=== PATIENT | female | born 1965 | race Caucasian/White ===

== ENCOUNTER 2020-06-06 07:24 | Outpatient (REF) | payer OTHER, SELFPAY ==
--- NOTE | ~2020-06-06 | MM_ITS ---
EXAMINATION: MM SCREENING DIGITAL BREAST TOMOSYNTHESIS, BILATERAL CLINICAL INFORMATION: Screening. Asymptomatic. The lifetime risk of breast cancer based on the Tyrer-Cuzick Model is 8%. COMPARISON: Mammography: 02/11/2019, 11/25/2017, 07/09/2016 TECHNIQUE: Digital breast tomosynthesis is performed in both the craniocaudal and mediolateral oblique views along with computer-aided detection (CAD). Synthesized 2D images are generated from the tomosynthesis. Additional bilateral CC views are provided. FINDINGS: There are scattered areas of fibroglandular density (ACR BI-RADS breast composition Category b). Breast tissue composition borders on predominantly fatty. Background stromal markings and fibroglandular densities are stable. There is no developing density or interval mass or architectural abnormality. No abnormal calcifications. The axilla and skin contours are unremarkable. MM/MM tomosynthesis screening BI IMPRESSION: No mammographic evidence of malignancy. ASSESSMENT: BI-RADS 1: Negative RECOMMENDATION: Routine annual mammography screening. This patient's information was entered into a reminder system with a target due date for their next mammogram.
== END 2020-06-06 07:25 | disposition home or self-care (01) ==
LOC: HO.MAMMO 07:24
PROVIDERS: Visit Provider Obstetrics & Gynecology
DX: Z12.31 Encounter for screening mammogram for malignant neoplasm of breast (principal)
CPT/HCPCS: 77063; 77067

== ENCOUNTER 2020-06-07 06:17 | Emergency (ER) | payer OTHER, SELFPAY ==
[2020-06-07] VITALS (11 sets, daily range): BP systolic 103–157; BP diastolic 61–124; PULSE 67–180; RESP 11–22; O2SAT 98–99; BMI 37.8
--- NOTE | 2020-06-07 | ECG_ITS ---
Test Reason : TACHY Blood Pressure : / mmHG Vent. Rate : 070 BPM Atrial Rate : 070 BPM P-R Int : 142 ms QRS Dur : 088 ms QT Int : 378 ms P-R-T Axes : 065 055 051 degrees QTc Int : 408 ms Normal sinus rhythm Possible Left atrial enlargement Borderline ECG When compared with ECG of 07-JUN-2020 06:32, Sinus rhythm has replaced Atrial fibrillation Vent. rate has decreased BY 103 BPM Non-specific change in ST segment in Inferior leads ST no longer depressed in Anterolateral leads T wave inversion no longer evident in Inferior leads T wave inversion no longer evident in Lateral leads Referred By: Kimberly Dawn Electronically Signed By:Dano Paez
--- NOTE | ~2020-06-07 | XR_ITS ---
EXAMINATION: XR CHEST CLINICAL INFORMATION: SVT. COMPARISON: None TECHNIQUE: Frontal view of the chest was obtained. FINDINGS: The lungs are well-expanded and clear. The heart size and pulmonary vascularity is normal. No gross bony abnormality seen. XR/XR chest 1V IMPRESSION: Unremarkable chest exam.
--- NOTE | ~2020-06-07 | CT_ITS ---
EXAMINATION: CT CHEST PE STUDY CLINICAL INFORMATION: Elevated d-dimer. Set atrial fibrillation. COMPARISON: Chest x-ray dated 06/07/2020. CT scan of the abdomen and pelvis dated 11/19/2010. TECHNIQUE: Prior to contrast administration, localization images were obtained. After the administration of 65 and mL of intravenous Omnipaque 350, multidetector CT volume acquisition of the chest was performed. 3-D postprocessing was performed with multiplanar reconstructions and MIP images obtained at the acquisition workstation under concurrent physician supervision. This CT examination was performed using dose optimization techniques as appropriate, variously including the following: *Automated exposure control *Adjustment of mA and/or kV according to patient size (this includes techniques or standardized protocols for targeted exams where dose is matched to indication/reason for exam; i.e. extremities or head) *Use of iterative reconstruction technique DLP: 386 mGy-cm. FINDINGS: Pulmonary arteries: The bolus timing on this study was acceptable for visualization of the pulmonary arterial tree. There are no intraluminal pulmonary arterial filling defects present to suggest pulmonary embolism in the main pulmonary artery, right and left main pulmonary artery, lobar and segmental branches. Lungs: Minimal dependent atelectasis in the lung bases bilaterally. No pulmonary nodules, masses, pleural effusion or pneumothorax. The central airways are patent. Aorta and heart: The heart is normal in size. The aorta is normal. There is no pericardial effusion no evidence of elevated right heart pressures. Lymphatic structures: There is no lymphadenopathy. Upper abdomen: Limited evaluation of the upper abdominal viscera demonstrates a 3.3 x 3.8 cm incompletely imaged fluid attenuation mass in the upper pole of the left kidney, consistent with a cyst, likely slightly larger compared to 11/19/2010. Included solid organs otherwise unremarkable. Bones: Diffuse mild vertebral spondylosis throughout the thoracic spine. Moderate degenerative disc disease at T11-12. CT/CT angio chest PE protocol IMPRESSION: No evidence of pulmonary embolism. Incompletely visualized cystic mass in the upper pole of left kidney. Visualized portions of the cyst appear unremarkable. VTE: Negative
--- NOTE | 2020-06-07 06:31 | ECG_ITS ---
Test Reason : TACHY Blood Pressure : / mmHG Vent. Rate : 176 BPM Atrial Rate : 163 BPM P-R Int : 000 ms QRS Dur : 080 ms QT Int : 282 ms P-R-T Axes : 000 060 -76 degrees QTc Int : 482 ms Atrial fibrillation with rapid ventricular response ST & T wave abnormality, consider inferior ischemia Abnormal ECG When compared with ECG of 15-MAR-2008 09:05, Atrial fibrillation has replaced Sinus rhythm Vent. rate has increased BY 115 BPM Non-specific change in ST segment in Inferior leads ST now depressed in Anterolateral leads T wave inversion now evident in Inferior leads T wave inversion now evident in Anterolateral leads Referred By: Kimberly Dawn Electronically Signed By:Dano Paez
[2020-06-07] MEDS: 0.9 % Sodium Chloride 1,000 ML 999 ML IVCONT (06:36)
--- NOTE | 2020-06-07 06:36 | PC.NURSE ---
Adenosine 6mg given at 06:32am Adenosine 12mg given at 06:36am Cardizem 10mg given at 06:42am 20g IV access in right AC 18g IV access in left AC Pt is cooperative/calm, reports racing heart started at 5am as recorded by apple watch. Reports family hx of stroke, and afib and other heart problems . Normal saline 1liter infusing wide open. & at bedside.
[2020-06-07 06:39] LABS: MANUAL DIFF FLAG NO
[2020-06-07] MEDS: dilTIAZem HCL 50 MG/10 ML VIAL 20 MG IVPUSH (06:42)
--- NOTE | 2020-06-07 06:44 | ED.ARRPALP ---
HPI - Arrhythmia/Palpitations General Chief Complaint: Arrhythmia/Palpitations Stated Complaint: Fast HR Time Seen by Provider: 06/07/20 06:22 Source: patient Mode of arrival: ambulatory Limitations: no limitations History of Present Illness HPI narrative: Patient comes to emergency room complaining of rapid heart rate. Patient states this morning when she woke up, she noticed that she had had rapid heart rate. Patient states she has had this episodes in the past before but had never lasted this long, usually they self-resolved. Patient denies chest pain, no shortness of breath. Patient states she does feel tired, feels like she has just finished running a race. Patient denies any recent illnesses. MD complaint: heart racing Related Data Home Medications Medication Instructions Recorded Confirmed cetirizine 10 mg tablet 10 mg PO DAILY 12/12/19 06/01/20 cholecalciferol (vitamin D3) 25 25 mcg PO DAILY 12/12/19 06/01/20 mcg (1,000 unit) capsule fluticasone propionate 50 1 spray INTRANASAL DAILY 12/12/19 06/01/20 mcg/actuation nasal spray,suspension ibuprofen 600 mg tablet 600 mg PO TID PRN 12/12/19 06/01/20 omega-3 fatty acids 1,000 mg 1,000 mg PO DAILY 12/12/19 06/01/20 capsule Previous Rx's Medication Instructions Recorded trazodone 100 mg tablet 100 mg PO BEDTIME PRN 90 Days #90 04/01/20 tab atenolol 25 mg tablet 25 mg PO DAILY 90 Days #90 tab 04/21/20 hydrochlorothiazide 50 mg tablet 50 mg PO DAILY 90 Days #90 tab 04/21/20 amoxicillin 875 mg-potassium 1 tab PO BID #20 tab 06/01/20 clavulanate 125 mg tablet prednisone 20 mg tablet 20 mg PO .COMPLEX #18 tab 06/01/20 Allergies Allergy/AdvReac Type Severity Reaction Status Date / Time Sulfa (Sulfonamide Allergy Severe HIVES,DIFFICULTY Verified 06/01/20 13:51 Antibiotics) BREATHING, [SULFA (SULFONAMIDE rash ANTIBIOTICS)] sulfamethoxazole Allergy Unknown unknown Verified 06/01/20 13:51 [From Bactrim] trimethoprim [From Bactrim] Allergy Unknown unknown Verified 06/01/20 13:51 Review of Systems Review of Systems: Constitutional : No Weight loss, No Fever, No Chills, No Night Sweats, No Fatigue, No Malaise ENT/Mouth : No Hearing loss, No Ear Pain, No Nasal Congestion, No Sinus Pain, No Hoarseness, No sore throat, No Rhinorrhea, No Swallowing Difficulty Eyes: No Eye Pain, No Swelling, No Redness, No Foreign Body, No Discharge, No Vision Changes Cardiovascular : No Chest Pain, No SOB, No Dyspnea on Exertion, No Orthopnea, No Edema, complaining of palpitations, rapid heart rate Respiratory : No Cough, No Sputum, No Wheezing, No Smoke Exposure, No Dyspnea Gastrointestinal : No Nausea, No Vomiting, No Diarrhea, No Constipation, No abdominal Pain, No Hematochezia, No Melena Genitourinary : no irregular bleeding, No Dysuria, No Urinary Frequency, No Hematuria, No Urinary Incontinence, No Urgency, No Flank Pain, No Urinary Flow Changes, No Hesitancy Musculoskeletal : No joint pain, No Myalgias, No Joint Swelling Skin : No Skin Lesions, No rash Neuro : No Weakness, No Numbness, No Paresthesias, No Loss of Consciousness, No Dizziness, No Headache Psych : No Anxiety/Panic, No Depression, No SI/HI/AH/VH, No Social Issues, Heme/Lymph: No Bruising, No Bleeding,No Lymphadenopathy Endocrine : No Polyuria, No Polydipsia, No Temperature Intolerance PMFSH Past Medical History Medical History Allergies Hypovitaminosis D Immunization due Immunization history incomplete Leg edema Obesity Palpitations Surgical History History of appendectomy History of eye surgery History of hysterectomy History of laparoscopic cholecystectomy History of tonsillectomy Family History Family History Father COPD (chronic obstructive pulmonary disease) CVD (cardiovascular disease) Pulmonary fibrosis Mother Stroke Rectal cancer Hypertension Afib Son No problems noted. Social History Social History Smoking Status: Former smoker Tobacco Type: Cigarette Years Smoked: 13 Physical Exam Vital Signs: Vital Signs: Last Vital Signs Pulse 180 H 06/07/20 06:22 Resp 20 06/07/20 06:22 BP 157/124 H 06/07/20 06:22 Pulse Ox 98 04/18/21 06:22 Body Mass Index 37.8 Appearance: Alert. Oriented X3. No acute distress, slightly anxious Eyes: Pupils equal, round and reactive to light. ENT: Pharynx normal. Neck: Normal inspection. Neck supple. No lymph nodes noted. No crepitus CVS: Irregularly regular, heart rate between 160 and 200 Respiratory: No respiratory distress. Breath sounds normal. No Wheezing. No rales Abdomen: Soft and nontender. No rigidity. No distention. good BS x4 Skin: Skin warm and dry. Normal skin color. Normal skin turgor. Extremities: No lower extremity edema. No Lacerations. No Rash Neuro: Oriented X 3. No motor deficit. No sensory deficit. Moving all extermities. No slurred speech. Course Course Course Narrative: Patient received 1 dose of 6 mg of adenosine with no result, then patient received a 2nd dose of 12 mg of adenosine with no good result. Patient's blood pressure 103 systolic, patient was given 10 mg of Cardizem. Patient's heart rate decreased to 120 for a few minutes then increase to 160 again. After the 6 and 12 mg of adenosine pushed, as the patient's heart rate dropped for a few seconds, the underlying rhythm seem to be atrial fibrillation. Patient is on Cardizem drip. For a few minutes, patient was in sinus rhythm, heart rate 70, no underlying ischemia. However, patient went immediately back up to 160. All of patient's labs are pending. Sign-out given to Dr. Ennis who is currently at bedside with the patient as well. MDM - Arrhythmia/Palpitations Lab Data Result diagrams: 06/07/20 06:34 06/07/20 06:34 Labs: Lab Results 06/07/20 06/07/20 Range/Units 06:34 06:34 WBC 12.6 H (4.8-10.8) X10*3/uL RBC 4.47 (4.20-5.50) X10*6/uL Hgb 13.8 (12.0-16.0) g/dl Hct 40.2 (37-47) % MCV 89.9 (80-98) fL MCH 30.9 (27.0-33.0) pg MCHC 34.3 (31.0-35.0) g/dl RDW 12.7 (11.0-16.0) % Plt Count 274 (160-400) X10*3/uL MPV 8.6 L (9.4-12.3) fL Immature Gran % (Auto) 0.6 H (0.0-0.4) % Neut % (Auto) 50.6 (45-73) % Lymph % (Auto) 38.8 (20-40) % [place] % (Auto) 7.5 (2-11) % Eos % (Auto) 2.0 (0-4) % Baso % (Auto) 0.5 (0-2) % Lymph # (Auto) 4.9 (1.2-4.9) X10*3/uL [place] # (Auto) 0.9 (0.1-1.2) X10*3/uL Eos # (Auto) 0.3 (0.0-0.4) X10*3/uL Baso # (Auto) 0.1 (0.0-0.2) X10*3/uL Abs Immat Gran (auto) 0.08 H (0.00-0.03) X10*3/uL Absolute Neuts (auto) 6.4 (2.0-8.3) X10*3/uL Absolute Nucleated RBC 0.000 (0.0-0.012) X10*3/uL Nucleated RBC % (auto) 0.0 (0.0-0.2) /100WBC Hold Blue Top SEE NOTE ECG Data Attestation: I personally reviewed and interpreted this ECG as follows: (EKG 1: Heart rate 176, rhythm on the term and atrial fibrillation with RVR versus SVT. EKG 2: Heart rate 173, likely atrial fibrillation. EKG 3: Sinus rhythm, heart rate 70, QTC 408, no ST segment depression or elevation) Discharge Plan Discharge Prescriptions: No Action trazodone 100 mg tablet 100 mg PO BEDTIME PRN (Reason: sleep) 90 Days Qty: 90 RF: 0 atenolol 25 mg tablet 25 mg PO DAILY 90 Days Qty: 90 RF: 3 hydrochlorothiazide 50 mg tablet 50 mg PO DAILY 90 Days Qty: 90 RF: 3 ibuprofen 600 mg tablet 600 mg PO TID PRNRF: 0 cetirizine [Zyrtec] 10 mg tablet 10 mg PO DAILY RF: 0 fluticasone propionate [Flonase Allergy Relief] 50 mcg/actuation spray,suspension 1 spray intranasal DAILY RF: 0 cholecalciferol (vitamin D3) 25 mcg (1,000 unit) capsule 25 mcg PO DAILY RF: 0 omega-3 fatty acids [Fish Oil Concentrate] 1,000 mg capsule 1,000 mg PO DAILY RF: 0 prednisone 20 mg tablet 20 mg PO .COMPLEX Qty: 18 RF: 0 amoxicillin-pot clavulanate [Augmentin] 875-125 mg tablet 1 tab PO BID Qty: 20 RF: 0
[2020-06-07 06:48] LABS: Basophils Absolute Auto 0.1 X10*3/uL (0.0-0.2); Basophils Percent Auto 0.5 % (0-2); Eosinophils Absolute Auto 0.3 X10*3/uL (0.0-0.4); Hematocrit 40.2 % (37-47); Hemoglobin 13.8 g/dl (12.0-16.0); Imm Gran Abs Auto 0.08 X10*3/uL (0.00-0.03); Imm Gran Pct Auto 0.6 % (0.0-0.4); Lymphocytes Absolute Auto 4.9 X10*3/uL (1.2-4.9); Lymphocytes Percent Auto 38.8 % (20-40); Mean Corpuscular HGB Conc 34.3 g/dl (31.0-35.0); Mean Corpuscular Hemoglobin 30.9 pg (27.0-33.0); Mean Corpuscular Volume 89.9 fL (80-98); Mean Platelet Volume 8.6 fL (9.4-12.3); Monocytes Absolute Auto 0.9 X10*3/uL (0.1-1.2); Monocytes Percent Auto 7.5 % (2-11); Neutrophils Absolute Auto 6.4 X10*3/uL (2.0-8.3); Neutrophils Percent Auto 50.6 % (45-73); Platelet Count 274 X10*3/uL (160-400); Red Blood Count 4.47 X10*6/uL (4.20-5.50); Red Cell Distribution Width 12.7 % (11.0-16.0); White Blood Count 12.6 X10*3/uL (4.8-10.8)
[2020-06-07] MEDS: dilTIAZem HCL 125 MG in 0.9 % Sodium Chloride 100 ML IVCONT (06:57)
[2020-06-07 06:59] LABS: INTERNATIONAL NORM RATIO 0.9 (0.9-1.1); Prothrombin Time 10.2 SEC (10.8-13.0)
[2020-06-07 07:21] LABS: Alanine Aminotransferase 23 U/L (0-31); Albumin Level 4.1 g/dL (3.5-5.0); Alkaline Phosphatase 78 U/L (39-117); Anion Gap 15 (12-20); Aspartate Amino Transferase 20 U/L (5-31); Bilirubin Direct < 0.2 mg/dL (0.0-0.5); Bilirubin Total 0.2 mg/dL (0.0-1.0); Blood Urea Nitrogen 16 mg/dL (9-16); Carbon Dioxide 27 mmol/L (22-29); Chloride 104 mmol/L (96-108); Creatinine Clr Calc Pharmacy 104.6; Estimated Glomerular Filt Rate > 60; Glucose Random 96 mg/dL (60-115); Potassium 3.3 mmol/L (3.3-5.1); Sodium 143 mmol/L (135-145); Total Protein 6.9 g/dL (6.5-8.0); Troponin-I High Sensitivity 92.7 ng/L (<3.5-17.0)
[2020-06-07 07:27] LABS: D Dimer 670 NG/ML
[2020-06-07 07:32] LABS: Thyroid Stimulating Hormone 0.89 uIU/mL (0.32-4.0)
[2020-06-07] MEDS: Aspirin 81 MG TAB.CHEW 162 MG PO (07:48)
--- NOTE | 2020-06-07 07:54 | PC.NURSE ---
report taken from christin khan pt here for rapid heart beat noticed by apple watch when awaking this am, has significant family hx of svt. has bl iv access, on diltiazem drip titrated up to 15mg/hr. pt is intermittently in and out of svt and nsr with rates as low as 75-85 and as high as 150-160 bpm. pt sts she can feel when hr becomes elevated. denies any cp or sob at this time, on o2 via nc for support, 98% spo2 on 2l. alert and oriented, pleasant affect. awaiting cta and cardiology consult.
--- NOTE | 2020-06-07 08:05 | PC.NURSE ---
pt appears to have broken svt, sustaining nsr with rate 60-70 bpm. sts feeling much better at this time, provider aware.
--- NOTE | 2020-06-07 09:21 | PC.NURSE ---
PER DR LARA, DILTIAZEM TO BE TITRATED DOWN TO OFF IF PT CONTINUES TO MAINTAIN NORMAL SINUS RHYTHM. DRIP TITRATED OFF. PT ABLE TO AMBULATE W STANDBY ASSIST TO RESTROOM, TAKEN TO CTA VIA STRETCHER. REPEAT TROP TO BE DRAWN WELL COVID SWAB.
[2020-06-07] MEDS: iohexoL 350 MG/ML 100 ML INFUS..BTL IV (09:26)
[2020-06-07 10:02] LABS: COVID-19 Test Negative (Negative); IDNOW Serial# 9DD0AD1C
--- NOTE | 2020-06-07 11:24 | P.CONCA_ITS ---
History of Present Illness History of Present Illness Date of Service: 06/07/20 Requesting physician: Marylou Ennis Consult reason: atrial fibrillation Chief complaint: Fast HR Narrative: Pleasant 55-year-old female here for palpitations. She was in a republican yesterday and drank some alcohol. This morning she woke up with palpitation. She said she has been experiencing palpitations for long time. She had an Apple watch on and she noticed her heart rate to be 170s to 180s. With these symptoms she came to the ER was found with AFib with RVR. She was started on Cardizem drip and reverted back to sinus rhythm. Her troponin was abnormal we were asked to assess her. She has no chest discomfort shortness of breath. Denies any symptoms with palpitations or otherwise. Currently asymptomatic. She has no other risk factors. She has been on atenolol for long time because she had palpitations and was started on atenolol for palpitations and not hypertension. Review of Systems Review of Systems: No symptoms Yes all other systems are reviewed and are negative FOR[facility]LY [facility] Past Medical History Medical History Allergies Hypovitaminosis D Immunization due Immunization history incomplete Leg edema Obesity Palpitations Family History Family History Father COPD (chronic obstructive pulmonary disease) CVD (cardiovascular disease) Pulmonary fibrosis Mother Stroke Rectal cancer Hypertension Afib Son No problems noted. Surgical History Surgical History History of appendectomy History of eye surgery History of hysterectomy History of laparoscopic cholecystectomy History of tonsillectomy Social History Social History Alcohol intake: current Alcohol intake frequency: a few times a week Smoking Status: Former smoker Tobacco Type: Cigarette Years Smoked: 13 Use of substances other than those prescribed or required for medical reasons: No Advance Directives: Yes Advance Directives Information Provided: No Advance Directives on File: No Meds Allergies Allergy/AdvReac Type Severity Reaction Status Date / Time Sulfa (Sulfonamide Allergy Severe HIVES,DIFFICULTY Verified 06/01/20 13:51 Antibiotics) BREATHING, [SULFA (SULFONAMIDE rash ANTIBIOTICS)] sulfamethoxazole Allergy Unknown unknown Verified 06/01/20 13:51 [From Bactrim] trimethoprim [From Bactrim] Allergy Unknown unknown Verified 06/01/20 13:51 Active Medications: Current Medications Generic Name Dose Route Start Last Admin Trade Name Eliana PRN Reason Stop Dose Admin Diltiazem HCl 125 mg/ Sodium 125 mls @ 0 mls/hr 06/07/20 06:45 06/07/20 08:31 Chloride IVCONT 0 mg/hr .Q0M BOLA 0 mls/hr Titration Protocol Per Protocol Home Medications Medication Instructions Recorded Confirmed Last Taken Type cetirizine 10 mg tablet 10 mg PO DAILY 12/12/19 06/01/20 Unknown History cholecalciferol (vitamin D3) 25 25 mcg PO DAILY 12/12/19 06/01/20 Unknown History mcg (1,000 unit) capsule fluticasone propionate 50 1 spray INTRANASAL DAILY 12/12/19 06/01/20 Unknown History mcg/actuation nasal spray,suspension omega-3 fatty acids 1,000 mg 1,000 mg PO DAILY 12/12/19 06/01/20 Unknown History capsule Physical Exam Vital Signs: Vital Signs: Last Vital Signs Pulse 68 06/07/20 10:15 Resp 18 06/07/20 10:15 BP 111/61 06/07/20 10:15 Pulse Ox 98 06/07/20 10:15 Body Mass Index 37.8 GENERAL APPEARANCE: in no acute distress, well developed, well nourished. HEENT: unremarkable. HEAD: normocephalic, atraumatic. NECK/THYROID: no carotid bruit, no jugular venous distention. SKIN: no suspicious lesions, warm and dry. HEART: no murmurs, regular rate and rhythm, S1, S2 normal. LUNGS: clear to auscultation bilaterally. ABDOMEN: normal, bowel sounds present, soft, nontender, nondistended. EXTREMITIES: no clubbing, cyanosis, or edema. PERIPHERAL PULSES: equal. NEUROLOGIC: nonfocal, alert and oriented. PSYCH: mood/affect full range. Results Labs and Meds Result diagrams: 06/07/20 06:34 06/07/20 06:34 Lab results: Laboratory Results - last 24 hr 06/07/20 06/07/20 06/07/20 06:34 06:34 06:34 WBC 12.6 H RBC 4.47 Hgb 13.8 Hct 40.2 MCV 89.9 MCH 30.9 MCHC 34.3 RDW 12.7 Plt Count 274 MPV 8.6 L Immature Gran % (Auto) 0.6 H Neut % (Auto) 50.6 Lymph % (Auto) 38.8 [place] % (Auto) 7.5 Eos % (Auto) 2.0 Baso % (Auto) 0.5 Lymph # (Auto) 4.9 [place] # (Auto) 0.9 Eos # (Auto) 0.3 Baso # (Auto) 0.1 Abs Immat Gran (auto) 0.08 H Absolute Neuts (auto) 6.4 Absolute Nucleated RBC 0.000 Nucleated RBC % (auto) 0.0 PT 10.2 L INR 0.9 D-Dimer 670 Hold Blue Top SEE NOTE Sodium 143 Potassium 3.3 Chloride 104 Carbon Dioxide 27 Anion Gap 15 BUN 16 Creatinine 0.81 Estim Creat Clear Calc 104.6 Estimated GFR > 60 Random Glucose 96 Calcium 9.0 Total Bilirubin 0.2 Direct Bilirubin < 0.2 AST 20 ALT 23 Alkaline Phosphatase 78 Troponin I High Sens Total Protein 6.9 Albumin 4.1 TSH 0.89 COVID-19 ([facility]) COVID-Slipstream 06/07/20 06/07/20 06/07/20 06:34 09:40 09:40 WBC RBC Hgb Hct MCV MCH MCHC RDW Plt Count MPV Immature Gran % (Auto) Neut % (Auto) Lymph % (Auto) [place] % (Auto) Eos % (Auto) Baso % (Auto) Lymph # (Auto) [place] # (Auto) Eos # (Auto) Baso # (Auto) Abs Immat Gran (auto) Absolute Neuts (auto) Absolute Nucleated RBC Nucleated RBC % (auto) PT INR D-Dimer Hold Blue Top Sodium Potassium Chloride Carbon Dioxide Anion Gap BUN Creatinine Estim Creat Clear Calc Estimated GFR Random Glucose Calcium Total Bilirubin Direct Bilirubin AST ALT Alkaline Phosphatase Troponin I High Sens 92.7 H 247.0 H D Total Protein Albumin TSH COVID-19 ([facility]) Negative COVID-19 Clin Com See Note Imaging Radiologist's impression: Impressions Chest X-Ray 06/07/20 06:31 IMPRESSION: Unremarkable chest exam. Chest CTA 06/07/20 07:44 IMPRESSION: No evidence of pulmonary embolism. Incompletely visualized cystic mass in the upper pole of left kidney. Visualized portions of the cyst appear unremarkable. VTE: Negative Assessment and Plan (1) Atrial fibrillation: Qualifiers: Atrial fibrillation type: unspecified Qualified Code(s): I48.91 - Unspecified atrial fibrillation Status: Acute Pleasant 55-year-old female who is presenting with AFib with RVR in the setting of alcohol use last night. She has no other risk factors currently. Her chads Vasc is 1 because of being a woman. No anticoagulation required. Continue the atenolol. Alcohol cessation. Troponin elevation is due to type 2 MIs setting of rapid ventricular response from atrial fibrillation. Thank you for allowing me to participate in the care of your patient. Please fe el free to contact me if you have any questions.
== END 2020-06-07 11:28 | disposition home or self-care (01) ==
PROVIDERS: Emergency Medicine; Emergency Provider Emergency Medicine; PCP Internal Medicine
DX: I48.91 Unspecified atrial fibrillation (principal); R00.0 Tachycardia, unspecified; Z20.822 Contact with and (suspected) exposure to COVID-19; F17.210 Nicotine dependence, cigarettes, uncomplicated
CPT/HCPCS: 36415; 71045; 71275; 80048; 80076; 84443; 84484; 85025; 85379; 85610; 87635; 93005; 96361; 96365; 96366; 96375; 99285; J0153; Q9967

== ENCOUNTER 2020-08-27 12:07 | Outpatient (REF) | payer OTHER, SELFPAY ==
[2020-08-27 07:10] LABS: Alanine Aminotransferase 22 U/L (0-31); Alkaline Phosphatase 66 U/L (39-117); Anion Gap 13 (12-20); Aspartate Amino Transferase 23 U/L (5-31); Bilirubin Total 0.4 mg/dL (0.0-1.0); Blood Urea Nitrogen 21 mg/dL (9-16); Calcium 9.4 mg/dL (8.4-10.2); Carbon Dioxide 26 mmol/L (22-29); Chloride 106 mmol/L (96-108); Cholesterol 164 mg/dL; Estimated Glomerular Filt Rate > 60; Glucose Fasting 106 mg/dL (60-99); HDL Cholesterol 61 mg/dL; LDL Cholesterol Calculated 90 mg/dl; Sodium 141 mmol/L (135-145); Total Protein 6.6 g/dL (6.5-8.0); Triglycerides 68 mg/dL
[2020-08-28 08:19] LABS: ~Hepatitis B Surface Antibody NONREACTIVE (Nonreactive)
[2020-08-28 09:11] LABS: Rubella IgG Antibody 1.17 Index; Rubeola IgG (Measles) >300.00 AU/mL
[2020-08-31 13:37] LABS: Vitamin D 25-OH, D2 <4 ng/mL; Vitamin D 25-OH, D3 46 ng/mL; Vitamin D 25-OH, Total 46 ng/mL (30-100)
== END 2020-08-27 12:08 | disposition home or self-care (01) ==
LOC: HO.LAB 12:07
PROVIDERS: PCP Internal Medicine; Visit Provider Internal Medicine
DX: Z01.84 Encounter for antibody response examination (principal); E66.9 Obesity, unspecified; E55.9 Vitamin D deficiency, unspecified
CPT/HCPCS: 36415; 80053; 80061; 82306; 86706; 86735; 86762; 86765; 86787

== ENCOUNTER 2021-05-15 11:34 | Outpatient (REF) | payer OTHER, SELFPAY ==
[2021-05-15 11:57] LABS: Binax Internal Control QC Valid; Binax Now Covid-19 Ag Negative (Negative); Binax Performed by: HO.BONILM
== END 2021-05-15 11:35 | disposition home or self-care (01) ==
LOC: HO.HMGCLDS 11:34
PROVIDERS: PCP Physician Assistant; Visit Provider Physician Assistant Medical
DX: Z13.89 Encounter for screening for other disorder (principal)

== ENCOUNTER 2021-05-22 06:32 | Outpatient (REF) | payer OTHER, SELFPAY ==
[2021-05-22 11:18] LABS: Hematocrit 38.4 % (37.0-47.0); Hemoglobin 13.2 g/dl (12.0-16.0); Mean Corpuscular HGB Conc 34.4 g/dl (31.0-35.0); Mean Corpuscular Hemoglobin 31.4 pg (27.0-33.0); Mean Corpuscular Volume 91.4 fL (80.0-98.0); Mean Platelet Volume 9.3 fL (9.4-12.3); Platelet Count 204 X10*3/uL (160-400); Red Cell Distribution Width 12.4 % (11.0-16.0); White Blood Count 4.9 X10*3/uL (4.8-10.8)
[2021-05-22 11:39] LABS: Alanine Aminotransferase 27 U/L (0-31); Albumin Level 4.1 g/dL (3.5-5.0); Alkaline Phosphatase 56 U/L (39-117); Anion Gap 12 (12-20); Aspartate Amino Transferase 30 U/L (5-31); Bilirubin Total 0.7 mg/dL (0.0-1.0); Blood Urea Nitrogen 16 mg/dL (9-16); Calcium 9.7 mg/dL (8.4-10.2); Carbon Dioxide 28 mmol/L (22-29); Chloride 105 mmol/L (96-108); Cholesterol 148 mg/dL; Estimated Glomerular Filt Rate > 60; Glucose Fasting 97 mg/dL (60-99); HDL Cholesterol 55 mg/dL; LDL Cholesterol Calculated 78 mg/dl; Potassium 3.9 mmol/L (3.3-5.1); Sodium 141 mmol/L (135-145); Total Protein 6.8 g/dL (6.5-8.0); Triglycerides 77 mg/dL
[2021-05-22 11:48] LABS: Creatinine Urine 102.89 mg/dL; Microalbumin Urine < 5.0 mg/L
[2021-05-22 12:02] LABS: TSH reflex Free T4 1.33 uIU/mL (0.32-4.0)
== END 2021-05-22 06:33 | disposition home or self-care (01) ==
LOC: HO.HMGCLDS 06:32
PROVIDERS: Visit Provider Physician Assistant
DX: I10 Essential (primary) hypertension (principal)
CPT/HCPCS: 36415; 80053; 80061; 82043; 84443; 85027

== ENCOUNTER 2021-06-19 09:07 | Outpatient (REF) | payer OTHER, SELFPAY ==
--- NOTE | ~2021-06-19 | MM_ITS ---
EXAMINATION: MM SCREENING DIGITAL BREAST TOMOSYNTHESIS, BILATERAL CLINICAL INFORMATION: Screening. Asymptomatic. The lifetime risk of breast cancer based on the Tyrer-Cuzick Model is 10%. COMPARISON: Mammography: 06/06/2020, 02/11/2019, 11/25/2017 TECHNIQUE: Digital breast tomosynthesis is performed in both the craniocaudal and mediolateral oblique views along with computer-aided detection (CAD). Synthesized 2D images are generated from the tomosynthesis. FINDINGS: There are scattered areas of fibroglandular density (ACR BI-RADS breast composition Category b). There are no significant masses, abnormal calcifications, or other abnormalities. Breast tissue composition borders on predominantly fatty. Background stromal markings are stable. The axilla are unremarkable. No significant changes. MM/MM tomosynthesis screening BI IMPRESSION: No mammographic evidence of malignancy. ASSESSMENT: BI-RADS 1: Negative RECOMMENDATION: Routine annual mammography screening. This patient's information was entered into a reminder system with a target due date for their next mammogram.
== END 2021-06-19 09:08 | disposition home or self-care (01) ==
LOC: HO.MAMMO 09:07
PROVIDERS: Visit Provider Internal Medicine
DX: Z12.31 Encounter for screening mammogram for malignant neoplasm of breast (principal)
CPT/HCPCS: 77063; 77067

== ENCOUNTER 2022-06-25 09:56 | Outpatient (REF) | payer OTHER, SELFPAY ==
--- NOTE | ~2022-06-25 | MM_ITS ---
EXAMINATION: MM SCREENING DIGITAL BREAST TOMOSYNTHESIS, BILATERAL CLINICAL INFORMATION: Screening. Asymptomatic. The lifetime risk of breast cancer based on the Tyrer-Cuzick Model is 7%. COMPARISON: Mammography: 06/19/2021, 06/06/2020, 02/11/2019 TECHNIQUE: Digital breast tomosynthesis is performed in both the craniocaudal and mediolateral oblique views along with computer-aided detection (CAD). Synthesized 2D images are generated from the tomosynthesis. FINDINGS: There are scattered areas of fibroglandular density (ACR BI-RADS breast composition Category b). Breast tissue composition borders on predominantly fatty. Background stromal markings are normal. No developing density or architectural abnormality. There are no significant masses, abnormal calcifications, or other abnormalities. The axilla and skin contours are unremarkable. MM/MM tomosynthesis screening BI IMPRESSION: No mammographic evidence of malignancy. ASSESSMENT: BI-RADS 1: Negative RECOMMENDATION: Routine annual mammography screening. This patient's information was entered into a reminder system with a target due date for their next mammogram.
== END 2022-06-25 09:57 | disposition home or self-care (01) ==
LOC: HO.MAMMO 09:56
PROVIDERS: PCP Physician Assistant; Visit Provider Obstetrics & Gynecology
DX: Z12.31 Encounter for screening mammogram for malignant neoplasm of breast (principal)
CPT/HCPCS: 77063; 77067

== ENCOUNTER 2022-07-16 07:00 | Outpatient (REF) | payer OTHER, SELFPAY ==
[2022-07-16 07:32] LABS: Hematocrit 40.6 % (37.0-47.0); Hemoglobin 14.3 g/dl (12.0-16.0); Mean Corpuscular HGB Conc 35.2 g/dl (31.0-35.0); Mean Corpuscular Hemoglobin 31.7 pg (27.0-33.0); Mean Platelet Volume 8.5 fL (9.4-12.3); Platelet Count 235 X10*3/uL (160-400); Red Blood Count 4.51 X10*6/uL (4.20-5.50); Red Cell Distribution Width 11.9 % (11.0-16.0); White Blood Count 6.2 X10*3/uL (4.8-10.8)
[2022-07-16 07:55] LABS: Alanine Aminotransferase 21 U/L (0-31); Albumin Level 4.4 g/dL (3.5-5.0); Alkaline Phosphatase 65 U/L (39-117); Anion Gap 11 (12-20); Aspartate Amino Transferase 25 U/L (5-31); Bilirubin Total 1.1 mg/dL (0.0-1.0); Blood Urea Nitrogen 17 mg/dL (9-16); Carbon Dioxide 30 mmol/L (22-29); Chloride 103 mmol/L (96-108); Cholesterol 179 mg/dL; Estimated Glomerular Filt Rate 58; Glucose Fasting 107 mg/dL (60-99); HDL Cholesterol 70 mg/dL; LDL Cholesterol Calculated 96 mg/dl; Potassium 3.8 mmol/L (3.3-5.1); Sodium 140 mmol/L (135-145); Total Protein 7.5 g/dL (6.5-8.0); Triglycerides 65 mg/dL
[2022-07-16 09:36] LABS: Microalbum/Creatinine Ratio Ur 151.2 ug/mg cr
== END 2022-07-16 07:01 | disposition home or self-care (01) ==
LOC: HO.LAB 07:00
PROVIDERS: PCP Physician Assistant; Visit Provider Physician Assistant
DX: I10 Essential (primary) hypertension (principal)
CPT/HCPCS: 36415; 80053; 80061; 82043; 85027

== ENCOUNTER → 2022-07-19 08:52 | Outpatient (BNVA) | payer OTHER, SELFPAY | PROVIDERS: PCP Physician Assistant; Visit Provider Dietitian, Registered | DX: E66.09 Other obesity due to excess calories (principal); Z68.33 Body mass index [BMI] 33.0-33.9, adult | CPT/HCPCS: 97802 ==

== ENCOUNTER 2022-08-05 15:57 | Outpatient (REF) | payer OTHER, SELFPAY ==
[2022-08-05 17:36] LABS: Creatinine Urine 24.66 mg/dL; Microalbumin Urine < 5.0 mg/L
== END 2022-08-05 15:58 | disposition home or self-care (01) ==
LOC: HO.LAB 15:57
PROVIDERS: PCP Physician Assistant; Visit Provider Physician Assistant
DX: R80.9 Proteinuria, unspecified (principal)
CPT/HCPCS: 82043

== ENCOUNTER 2023-05-27 06:58 | Outpatient (REF) | payer OTHER, SELFPAY ==
[2023-05-27 07:53] LABS: Hematocrit 37.4 % (37.0-47.0); Hemoglobin 13.2 g/dl (12.0-16.0); Mean Corpuscular HGB Conc 35.3 g/dl (31.0-35.0); Mean Corpuscular Hemoglobin 32.2 pg (27.0-33.0); Mean Corpuscular Volume 91.2 fL (80.0-98.0); Mean Platelet Volume 9.1 fL (9.4-12.3); Platelet Count 208 X10*3/uL (160-400); Red Cell Distribution Width 12.3 % (11.0-16.0); White Blood Count 5.4 X10*3/uL (4.8-10.8)
[2023-05-27 08:44] LABS: Alanine Aminotransferase 17 U/L (0-31); Alkaline Phosphatase 54 U/L (39-117); Anion Gap 11 (12-20); Aspartate Amino Transferase 21 U/L (5-31); Bilirubin Total 0.5 mg/dL (0.0-1.0); Blood Urea Nitrogen 25 mg/dL (9-16); Calcium 9.6 mg/dL (8.4-10.2); Carbon Dioxide 28 mmol/L (22-29); Chloride 105 mmol/L (96-108); Estimated Glomerular Filt Rate > 60; Glucose Fasting 102 mg/dL (60-99); Potassium 3.6 mmol/L (3.3-5.1); Sodium 140 mmol/L (135-145); Total Protein 6.9 g/dL (6.5-8.0)
[2023-05-27 14:32] LABS: Creatinine Urine 136.52 mg/dL; Microalbum/Creatinine Ratio Ur 30.7 ug/mg cr (<30)
== END 2023-05-27 06:59 | disposition home or self-care (01) ==
LOC: HO.LAB 06:58
PROVIDERS: PCP Physician Assistant; Visit Provider Physician Assistant
DX: I10 Essential (primary) hypertension (principal)
CPT/HCPCS: 36415; 80053; 82043; 82570; 85027

== ENCOUNTER 2023-05-31 15:55 | Outpatient (AMB) | payer OTHER, SELFPAY ==
[2023-05-31 15:56] VITALS: BP 136/72; PULSE 52; O2SAT 98; BMI 33.8
--- NOTE | 2023-05-31 15:56 | MHC.PC.OV ---
Vital Signs 05/31/23 15:56 Height 5 ft 8 in Weight 222 lb 8 oz BMI 33.8 BP 136/72 Blood Pressure Location Lt brachial Position Sitting Pulse 52 Pulse Source Pulse Oximeter Pulse Oximetry (%) 98 Oxygen Delivery Method Room Air Intake Visit Reasons: weight loss medication Spooler Rubber Strand Required: No Accompanied by: Self / Same As Patient Allergies Sulfa (Sulfonamide Antibiotics) [SULFA (SULFONAMIDE ANTIBIOTICS)] Allergy (Severe, Verified 05/31/23 16:13) HIVES,DIFFICULTY BREATHING, rash sulfamethoxazole [From Bactrim] Allergy (Unknown, Verified 05/31/23 16:13) unknown trimethoprim [From Bactrim] Allergy (Unknown, Verified 05/31/23 16:13) unknown Medication List - Last Reconciled 05/31/23 by Antonio Ponce PA-C atenolol 12.5 mg (1/2 x 25 mg) PO DAILY 90 days cetirizine (Zyrtec) 10 mg PO DAILY cholecalciferol (vitamin D3) 25 mcg PO DAILY flecainide 50 mg PO BID 90 days fluticasone propionate 50 mcg/actuation (Flonase Allergy Relief) 1 spray intranasal DAILY hydrochlorothiazide 50 mg PO DAILY 90 days loratadine-pseudoephedrine 10-240 mg ER (Claritin-D 24 Hour) 1 tab PO DAILY PRN 90 days omega-3 fatty acids (Fish Oil Concentrate) 1,000 mg PO DAILY trazodone 100 mg PO BEDTIME PRN 90 days Tobacco use date assessed: 05/31/23 Dental Screening Dental Screen Date: 05/31/23 Did you have a dental visit in the last 12 months?: Yes Did you have a dental problem in the last 6 months where you did not have access to dental care?: No Was dental information given to patient?: Patient has dentist HPI weight loss medication HPI Details Patient is a 58-year-old female here today for follow-up visit. ?Patient has a past medical history significant for obesity, palpitations, allergies, Tachycardia: ? Heart rate acceptable today in office pres, blood pressure sure acceptable today in office.? Continues on hydrochlorothiazide and atenolol with good effect.? Of note uses hydrochlorothiazide for lower extremity edema. .. Obesity:? Has been able to lose a significant amount of weight since last office visit.? She is using weight watchers, her weight loss seems to have plateaued and she is discouraged by this. She is interested in starting a medication to help her lose more weight. She set a goal weight to be around 200 lb. She has not interested in injectable GLP therapy due to cost.? [facility] Medical History (Updated 05/31/23 @ 16:19 by Antonio Ponce PA-C) Hypovitaminosis D Immunization due Immunization history incomplete Palpitations Obesity Allergies Surgical History History of eye surgery History of laparoscopic cholecystectomy History of appendectomy History of tonsillectomy History of hysterectomy Family History Father COPD (chronic obstructive pulmonary disease) CVD (cardiovascular disease) Pulmonary fibrosis Mother Stroke Rectal cancer Hypertension Afib Son No problems noted. 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 1. Little interest or pleasure in doing things: not at all 2. Feeling down, depressed, or hopeless: not at all 3. Trouble falling or staying asleep, or sleeping too much: not at all 4. Feeling tired or having little energy: not at all 5. Poor appetite or overeating: not at all 6. Feeling bad about yourself - or that you are a failure or have let yourself or your family down: not at all 7. Trouble concentrating on things, such as reading the newspaper or watching television: not at all 8. Moving or speaking so slowly that other people could have noticed. Or the opposite - being so fidgety or restless that you have been moving around a lot more than usual: not at all 9. Thoughts that you would be better off or of hurting yourself in some way: not at all Total score: 0 Depression Screening Interpretation: Negative Depression Screening Done: Yes 95149 - PHQ-9 Billing: Yes Source: Developed by Drs. Hipolito Boucher, Alesia Saldaña, Jerald Starkey and colleagues, with an educational daniela from [employer]. Thrive Questionnaire Date Thrive assessed: 05/31/23 I am a: Patient What is your living situation today?: I have a steady place to live Within the past 12 months, did the food you bought not last and you didn't have the money to get more?: Never true Within the past 12 months, did you worry whether your food would run out before you got money to buy more?: Never true Do you have trouble paying for medicines?: No Do you have trouble getting transportation to medical appointments?: No Do you have trouble paying your heating and electricity bill?: No Do you have trouble taking care of your child, family member or friend?: No Do you have trouble with day-to-day activities such as bathing, preparing meals, shopping, managing finances, etc.?: No Are you currently unemployed and looking for a job?: No Are you interested in more education?: No Please select the resources that you would like help with: None Currently or been in a relationship where the following occur: no concerns reported THRIVE Score: 0 AUDIT C Alcohol Use Questionnaire (AUDIT-C) 1. How often do you have a drink containing alcohol?: Never 3. How often do you have six or more drinks on one occasion?: Never Total Score: 0 CATERINA-7 AMB Questionnaire CATERINA-7 Date CATERINA - 7 assessed: 05/31/23 Feeling nervous, anxious, or on edge: 0 = Not at all Not being able to stop or control worryin = Not at all Worrying too much about different things: 0 = Not at all Trouble relaxin = Not at all Being so restless that it is hard to sit still: 0 = Not at all Becoming easily annoyed or irritable: 0 = Not at all Feeling afraid as if something awful might happen: 0 = Not at all Total CATERINA-7 score (0-4 normal; 5-9 mild; 10-14 moderate; 15-21 severe): 0 Source: Developed by Drs. Hipolito Boucher, Alesia Saldaña, Jerald Starkey and colleagues, with an educational daniela from [employer]. CATERINA-7 Assessment Billing CATERINA-7 Assessment Tool: CATERINA-7 Assessment 14788 Review of Systems Const Denies headache(s) Eyes Denies loss of vision ENT Denies vertigo, Denies dizziness, Denies headache(s) and Denies sore throat Card Denies chest pain, Denies leg edema and Denies lightheadedness Resp Denies cough, Denies hemoptysis and Denies wheezing GI Denies abdominal pain, Denies melena, Denies constipation, Denies diarrhea and Denies vomiting Denies urinary frequency, Denies dysuria and Denies urinary urgency Musc Denies arthralgias, Denies joint swelling, Denies numbness and Denies tingling Neuro Denies Abnormal speech present, Denies behavioral changes, Denies vertigo, Denies dizziness, Denies headache(s), Denies loss of vision, Denies memory loss, Denies numbness and Denies tingling Psych Denies anxiety, Denies behavioral changes, Denies depression, Denies memory loss and Denies panic attacks Brennen/Lymph Denies easy bleeding and Denies easy bruising Aller/Immun Denies wheezing Physical exam (Primary Care) Vital Signs: Last Vital Signs Pulse 52 05/31/23 15:56 BP 136/72 05/31/23 15:56 Pulse Ox 98 05/31/23 15:56 Oxygen Delivery Method Room Air 05/31/23 15:56 BMI result Body Mass Index 33.8 BMI Assessment/Plan discussion: High Tobacco/Smoking Status: Tobacco use Status Tobacco use date assessed 05/31/23 05/31/23 15:58 Patient Tobacco Use Status Former Tobacco user 05/31/23 15:57 Tobacco use type Cigarette 05/31/23 15:57 e-Cigarette/Vaping Use Never Used 05/31/23 15:57 PHQ-9: PHQ-9 Score PHQ-9: Total score 0 05/31/23 16:16 Depression Screening Interpretation: Negative Thrive Assessment: Date of Thrive Assessment Date Thrive assessed 05/31/23 05/31/23 16:07 Currently or been in a relationship where the following occur: no concerns reported Const Other: Obese General: healthy appearing, no acute distress, alert and awake Nutritional Appearance: well nourished Orientation/consciousness: oriented to person, oriented to place and oriented to time HENMT Ears: TM's normal bilaterally General nose exam: Normal nasal mucous membranes and turbinates present Eyes Conjunctivae: conjunctivae normal Sclerae: sclerae normal Pupils: Equal, round and reactive pupils present Neck Neck: Yes no lymphadenopathy and Yes no JVD Thyroid: Thyroid normal Carotids: no bruits Resp Effort & Inspection: normal respiratory effort and not tachypneic Auscultation: no crackles, no rales, no rhonchi and no wheezes Cardio Rate: regular rate Rhythm: regular rhythm Heart sounds: no murmurs and normal S1 and S2 GI Palpation (GI): Soft to palpation, nontender, no hepatomegaly and no splenomegaly Auscultation: normal bowel sounds Skin General skin exam: no rashes or lesions noted and dry skin Neuro General: oriented to person, oriented to place and oriented to time Cranial nerves: Yes Equal, round and reactive pupils present Speech: No Abnormal speech present Gait exam (Neuro): Normal gait present Motor exam (neuro): no tremor noted Extrem Right upper extremity: full ROM Left upper extremity: full ROM Right lower extremity: full ROM; no edema Left lower extremity: full ROM; no edema Psych Mental Status: mental status grossly normal Speech and movement: Normal speech and movement present Affect: normal affect Attitude: cooperative Thought process: Normal thought process present Assessment and Plan Assessment & Plan (1) Obese: Code(s): E66.9 - Obesity, unspecified Qualifiers: Body mass index: BMI 33.0-33.9 Obesity classification: adult class 1 (BMI 30 - 34.9) Obesity type: due to excess calories Serious obesity comorbidity presence: without serious comorbidity Qualified Code(s): E66.09 - Other obesity due to excess calories; Z68.33 - Body mass index [BMI] 33.0-33.9, adult Plan: Patient does understand her BMI is over 30. Patient continues with weight watchers, she continues to struggle with losing weight. She has modified her diet and is physically active. She is interested in trying medication non injectable to help her lose weight. Will try the Contrave dual naltrexone bupropion. If Contrave not covered by insurance will tries single agent Wellbutrin 100 mg SR. ---> We did discuss the possibility of having palpitations and tachycardia with this medication and patient is aware. (2) Tachycardia: Code(s): R00.0 - Tachycardia, unspecified Plan: Continues beta-jose and flecainide good effect on reducing her heart palpitations and tachycardia. Medications: New naltrexone-bupropion 8-90 mg 1 tab PO QAM 7 tabs 0RF 7 days E66.09 - Other obesity due to excess calories, Z68.33 - Body mass index [BMI] 33.0-33.9, adult Coding Level of Care Code Est Pt Level 4 (23317) Diagnoses Class 1 obesity due to excess calories without serious comorbidity with body mass index (BMI) of 33.0 to 33.9 in adult E66.09; Z68.33 Body mass index: BMI 33.0-33.9 Obesity classification: adult class 1 (BMI 30 - 34.9) Obesity type: due to excess calories Serious obesity comorbidity presence: without serious comorbidity Tachycardia R00.0 Additional Codes CATERINA-7 Assessment Billing - CATERINA-7 Assessment Tool: CATERINA-7 Assessment 28560 ([id number])
== END 2023-05-31 16:34 | disposition home or self-care (01) ==
PROVIDERS: PCP Physician Assistant; Visit Provider Physician Assistant
DX: E66.09 Other obesity due to excess calories (principal); Z68.33 Body mass index [BMI] 33.0-33.9, adult; R00.0 Tachycardia, unspecified
CPT/HCPCS: 99214

== ENCOUNTER 2023-06-28 09:53 | Outpatient (AMB) | payer OTHER, SELFPAY ==
[2023-06-28 09:58] VITALS: BP 132/76; PULSE 65; O2SAT 97; BMI 33.4
--- NOTE | 2023-06-28 09:58 | MHC.PC.OV ---
Vital Signs 06/28/23 09:58 Height 5 ft 8 in Weight 219 lb 6 oz BMI 33.4 BP 132/76 Blood Pressure Location Lt brachial Position Sitting Pulse 65 Pulse Source Pulse Oximeter Pulse Oximetry (%) 97 Oxygen Delivery Method Room Air Intake Visit Reasons: soar throat Leadership Development Consultant Required: No Accompanied by: Self / Same As Patient Allergies Sulfa (Sulfonamide Antibiotics) [SULFA (SULFONAMIDE ANTIBIOTICS)] Allergy (Severe, Verified 06/28/23 10:14) HIVES,DIFFICULTY BREATHING, rash sulfamethoxazole [From Bactrim] Allergy (Unknown, Verified 06/28/23 10:14) unknown trimethoprim [From Bactrim] Allergy (Unknown, Verified 06/28/23 10:14) unknown bupropion [From Wellbutrin] Adverse Reaction (Intermediate, Verified 06/28/23 10:16) arthralgia Medication List - Last Reconciled 06/28/23 by Antonio Ponce PA-C atenolol 12.5 mg (1/2 x 25 mg) PO DAILY 90 days bupropion HCl SR (Wellbutrin SR) 100 mg PO DAILY 30 days cetirizine (Zyrtec) 10 mg PO DAILY cholecalciferol (vitamin D3) 25 mcg PO DAILY flecainide 50 mg PO BID 90 days fluticasone propionate 50 mcg/actuation (Flonase Allergy Relief) 1 spray intranasal DAILY hydrochlorothiazide 50 mg PO DAILY 90 days loratadine-pseudoephedrine 10-240 mg ER (Claritin-D 24 Hour) 1 tab PO DAILY PRN 90 days omega-3 fatty acids (Fish Oil Concentrate) 1,000 mg PO DAILY trazodone 100 mg PO BEDTIME PRN 90 days Tobacco use date assessed: 05/31/23 Dental Screening Dental Screen Date: 05/31/23 HPI soar throat HPI Details Patient is a 58-year-old female here today for problem visit. Reports over the last 4 days having a sore throat and swollen neck glands. She denies any significant issues swallowing. She denies any fevers. [facility] Medical History Hypovitaminosis D Immunization due Immunization history incomplete Palpitations Obesity Allergies Surgical History History of eye surgery History of laparoscopic cholecystectomy History of appendectomy History of tonsillectomy History of hysterectomy Family History Father COPD (chronic obstructive pulmonary disease) CVD (cardiovascular disease) Pulmonary fibrosis Mother Stroke Rectal cancer Hypertension Afib Son No problems noted. 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 Hipolito Boucher, Alesia Saldaña, Jerald Starkey and colleagues, with an educational daniela from [employer]. Review of Systems Const Denies headache(s) Eyes Denies loss of vision ENT Denies vertigo, Denies dizziness, Denies headache(s) and Denies sore throat Card Denies chest pain, Denies leg edema and Denies lightheadedness Resp Denies cough, Denies hemoptysis and Denies wheezing GI Denies abdominal pain, Denies melena, Denies constipation, Denies diarrhea and Denies vomiting Denies urinary frequency, Denies dysuria and Denies urinary urgency Musc Denies arthralgias, Denies joint swelling, Denies numbness and Denies tingling Neuro Denies Abnormal speech present, Denies behavioral changes, Denies vertigo, Denies dizziness, Denies headache(s), Denies loss of vision, Denies memory loss, Denies numbness and Denies tingling Psych Denies anxiety, Denies behavioral changes, Denies depression, Denies memory loss and Denies panic attacks Brennen/Lymph Denies easy bleeding and Denies easy bruising Aller/Immun Denies wheezing Physical exam (Primary Care) Vital Signs: Last Vital Signs Pulse 65 06/28/23 09:58 BP 132/76 06/28/23 09:58 Pulse Ox 97 06/28/23 09:58 Oxygen Delivery Method Room Air 06/28/23 09:58 BMI result Body Mass Index 33.4 Tobacco/Smoking Status: Tobacco use Status Tobacco use date assessed 05/31/23 06/28/23 10:00 Patient Tobacco Use Status Former Tobacco user 06/28/23 10:00 Tobacco use type Cigarette 06/28/23 10:00 e-Cigarette/Vaping Use Never Used 06/28/23 10:00 Thrive Assessment: Date of Thrive Assessment Date Thrive assessed 05/31/23 06/28/23 10:00 Const General: healthy appearing, no acute distress, alert and awake Nutritional Appearance: well nourished Orientation/consciousness: oriented to person, oriented to place and oriented to time HENMT Other: SLIGHT ERYTHEMA OF THE POSTERIOR PHARYNX ON INSPECTION Ears: TM's normal bilaterally General nose exam: Normal nasal mucous membranes and turbinates present Eyes Conjunctivae: conjunctivae normal Sclerae: sclerae normal Pupils: Equal, round and reactive pupils present Neck Neck: Yes no lymphadenopathy and Yes no JVD Thyroid: Thyroid normal Carotids: no bruits Resp Effort & Inspection: normal respiratory effort and not tachypneic Auscultation: no crackles, no rales, no rhonchi and no wheezes Cardio Rate: regular rate Rhythm: regular rhythm Heart sounds: no murmurs and normal S1 and S2 GI Palpation (GI): Soft to palpation, nontender, no hepatomegaly and no splenomegaly Auscultation: normal bowel sounds Skin General skin exam: no rashes or lesions noted and dry skin Neuro General: oriented to person, oriented to place and oriented to time Cranial nerves: Yes Equal, round and reactive pupils present Speech: No Abnormal speech present Gait exam (Neuro): Normal gait present Motor exam (neuro): no tremor noted Extrem Right upper extremity: full ROM Left upper extremity: full ROM Right lower extremity: full ROM; no edema Left lower extremity: full ROM; no edema Psych Mental Status: mental status grossly normal Speech and movement: Normal speech and movement present Affect: normal affect Attitude: cooperative Thought process: Normal thought process present Results AMB Rapid Strep AMB Rapid Strep Negative Last Edit by PHILLY Allen on 06/28/23 10:32 Results Reviewed Results Reviewed: Laboratory Last Values Strep Scn Rapid Clinic Negative 06/28/23 10:03 Assessment and Plan Assessment & Plan (1) Pharyngitis: Code(s): J02.9 - Acute pharyngitis, unspecified Qualifiers: Pharyngitis/tonsillitis etiology: other specified organisms Qualified Code(s): J02.8 - Acute pharyngitis due to other specified organisms Plan: Patient reports a 4 day history sore throat and cervical glands. Likely related to seasonal allergies. Rapid strep today in office negative. Will send for culture. Will prophylactically treat with antibiotic for strep infection due to recent contact with positive strep throat grandchildren. Orders: Orders Throat Culture Today J02.8 - Acute pharyngitis due to other specified organisms AMB Rapid Strep Screen Today J02.9 - Acute pharyngitis, unspecified Medications: New prednisone 20 mg PO DAILY 4 tabs 0RF 4 days J02.8 - Acute pharyngitis due to other specified organisms amoxicillin-pot clavulanate 875-125 mg 1 tab PO BID 14 tabs 0RF 7 days J02.8 - Acute pharyngitis due to other specified organisms Refilled atenolol 12.5 mg (1/2 x 25 mg) PO DAILY 45 tabs 1RF 90 days R00.0 - Tachycardia, unspecified hydrochlorothiazide 50 mg PO DAILY 90 tabs 1RF 90 days I10 - Essential (primary) hypertension trazodone 100 mg PO BEDTIME PRN 90 tabs 2RF sleep 90 days flecainide 50 mg PO BID 180 tabs 1RF 90 days R00.0 - Tachycardia, unspecified Discontinued bupropion HCl SR (Wellbutrin SR) Discontinued Reason: Doctor's Order 100 mg PO DAILY 30 days 30 tabs 1RF E66.09 - Other obesity due to excess calories, Z68.33 - Body mass index [BMI] 33.0-33.9, adult Coding Level of Care Code Est Pt Level 3 (53618) Diagnoses Pharyngitis due to other organism J02.8 Pharyngitis/tonsillitis etiology: other specified organisms
== END 2023-06-28 10:27 | disposition home or self-care (01) ==
PROVIDERS: PCP Physician Assistant; Visit Provider Physician Assistant
DX: J02.9 Acute pharyngitis, unspecified (principal); J02.8 Acute pharyngitis due to other specified organisms
CPT/HCPCS: 87880; 99213

== ENCOUNTER 2023-06-28 19:11 | Outpatient (REF) | payer OTHER, SELFPAY | END 2023-06-28 19:12 | disposition home or self-care (01) | LOC: HO.LNP 19:11 | PROVIDERS: Visit Provider Physician Assistant | DX: J02.9 Acute pharyngitis, unspecified (principal) | CPT/HCPCS: 87070 ==

== ENCOUNTER 2023-07-10 15:43 | Outpatient (REF) | payer OTHER, SELFPAY | END 2023-07-10 15:44 | disposition home or self-care (01) | LOC: HO.MAMMO 15:43 | PROVIDERS: PCP Physician Assistant; Visit Provider Physician Assistant | DX: Z12.31 Encounter for screening mammogram for malignant neoplasm of breast (principal) | CPT/HCPCS: 77063; 77067 ==

== ENCOUNTER → 2023-07-10 15:45 | Outpatient (BNV) | payer OTHER, SELFPAY | PROVIDERS: PCP Physician Assistant; Visit Provider Radiology Diagnostic Radiology | DX: Z12.31 Encounter for screening mammogram for malignant neoplasm of breast (principal) | CPT/HCPCS: 77063; 77067 ==

== ENCOUNTER 2023-12-26 14:45 | Outpatient (REF) | payer BC, SELFPAY ==
[2023-12-26 15:07] LABS: MANUAL DIFF FLAG NO
[2023-12-26 15:47] LABS: Basophils Absolute Auto 0.1 X10*3/uL (0.0-0.2); Basophils Percent Auto 0.8 % (0-2); Eosinophils Absolute Auto 0.3 X10*3/uL (0.0-0.4); Eosinophils Percent Auto 3.8 % (0-4); Hematocrit 36.6 % (37.0-47.0); Hemoglobin 12.8 g/dl (12.0-16.0); Imm Gran Abs Auto 0.01 X10*3/uL (0.00-0.03); Imm Gran Pct Auto 0.1 % (0.0-0.4); Lymphocytes Absolute Auto 3.3 X10*3/uL (1.2-4.9); Lymphocytes Percent Auto 44.8 % (20-40); Mean Corpuscular Hemoglobin 32.2 pg (27.0-33.0); Mean Corpuscular Volume 92.2 fL (80.0-98.0); Mean Platelet Volume 8.6 fL (9.4-12.3); Monocytes Absolute Auto 0.8 X10*3/uL (0.1-1.2); Monocytes Percent Auto 10.7 % (2-11); Neutrophils Absolute Auto 2.9 x10*3/uL (2.0-8.3); Neutrophils Percent Auto 39.8 % (45-73); Platelet Count 222 X10*3/uL (160-400); Red Blood Count 3.97 X10*6/uL (4.20-5.50); Red Cell Distribution Width 12.3 % (11.0-16.0); White Blood Count 7.4 X10*3/uL (4.8-10.8)
[2023-12-26 16:20] LABS: Anion Gap 9 (12-20); Blood Urea Nitrogen 18 mg/dL (9-16); Calcium 9.3 mg/dL (8.4-10.2); Carbon Dioxide 31 mmol/L (22-29); Chloride 99 mmol/L (96-108); Estimated Glomerular Filt Rate > 60; Glucose Random 78 mg/dL (60-115); Potassium 4.2 mmol/L (3.3-5.1); Sodium 135 mmol/L (135-145)
[2024-01-04 21:18] LABS: Prothrombin 20210A NEGATIVE
== END 2023-12-26 14:46 | disposition home or self-care (01) ==
LOC: HO.LAB 14:45
PROVIDERS: PCP Physician Assistant; Visit Provider Internal Medicine Cardiovascular Disease
DX: I48.0 Paroxysmal atrial fibrillation (principal)
CPT/HCPCS: 36415; 80048; 81240; 85025

== ENCOUNTER 2024-03-01 06:02 | Outpatient (REF) | payer BC, SELFPAY ==
[2024-03-01 07:15] LABS: Hematocrit 37.9 % (37.0-47.0); Hemoglobin 13.7 g/dl (12.0-16.0); Mean Corpuscular HGB Conc 36.1 g/dl (31.0-35.0); Mean Corpuscular Hemoglobin 32.3 pg (27.0-33.0); Mean Corpuscular Volume 89.4 fL (80.0-98.0); Mean Platelet Volume 8.5 fL (9.4-12.3); Platelet Count 242 X10*3/uL (160-400); Red Blood Count 4.24 X10*6/uL (4.20-5.50); Red Cell Distribution Width 11.9 % (11.0-16.0); White Blood Count 5.9 X10*3/uL (4.8-10.8)
[2024-03-01 07:55] LABS: Creatinine Urine 86.98 mg/dL; Microalbum/Creatinine Ratio Ur 18.3 ug/mg cr (<30)
[2024-03-01 08:02] LABS: Alanine Aminotransferase 19 U/L (0-31); Albumin Level 4.1 g/dL (3.5-5.0); Alkaline Phosphatase 62 U/L (39-117); Anion Gap 10 (12-20); Aspartate Amino Transferase 25 U/L (5-31); Bilirubin Total 0.4 mg/dL (0.0-1.0); Blood Urea Nitrogen 18 mg/dL (9-16); Calcium 9.4 mg/dL (8.4-10.2); Carbon Dioxide 29 mmol/L (22-29); Chloride 106 mmol/L (96-108); Estimated Glomerular Filt Rate > 60; Glucose Fasting 94 mg/dL (60-99); Potassium 3.6 mmol/L (3.3-5.1); Sodium 141 mmol/L (135-145); Total Protein 7.1 g/dL (6.5-8.0)
[2024-03-01 08:58] LABS: Vitamin D 25-OH Total 56.3 ng/mL (>30)
== END 2024-03-01 06:03 | disposition home or self-care (01) ==
LOC: HO.LAB 06:02
PROVIDERS: PCP Physician Assistant; Visit Provider Physician Assistant
DX: I10 Essential (primary) hypertension (principal); E55.9 Vitamin D deficiency, unspecified
CPT/HCPCS: 36415; 80053; 82043; 82306; 82570; 85027

== ENCOUNTER 2024-03-28 13:22 | Outpatient (AMB) | payer BC, SELFPAY ==
[2024-03-28 13:24] VITALS: BP 148/80; PULSE 60; O2SAT 99; BMI 33.6
--- NOTE | 2024-03-28 13:24 | A.OFFPC_ITS ---
Vital Signs 03/28/24 13:24 Height 5 ft 8 in Weight 221 lb BMI 33.6 BP 148/80 H Blood Pressure Location Lt brachial Position Sitting Pulse 60 Pulse Source Pulse Oximeter Temp Source Temporal Artery Scan Pulse Oximetry (%) 99 Oxygen Delivery Method Room Air Intake Visit Reasons: Annual pe Talent Sourcer Required: No Accompanied by: Self / Same As Patient Allergies Sulfa (Sulfonamide Antibiotics) [SULFA (SULFONAMIDE ANTIBIOTICS)] Allergy (Severe, Verified 03/28/24 13:37) HIVES,DIFFICULTY BREATHING, rash sulfamethoxazole [From Bactrim] Allergy (Unknown, Verified 03/28/24 13:37) unknown trimethoprim [From Bactrim] Allergy (Unknown, Verified 03/28/24 13:37) unknown bupropion [From Wellbutrin] Adverse Reaction (Intermediate, Verified 03/28/24 13:37) arthralgia Medication List - Last Reconciled 03/28/24 by Antonio Ponce PA-C atenolol 12.5 mg (1/2 x 25 mg) PO DAILY 90 days cetirizine (Zyrtec) 10 mg PO DAILY cholecalciferol (vitamin D3) 25 mcg PO DAILY fluticasone propionate 50 mcg/actuation (Flonase Allergy Relief) 1 spray intranasal DAILY hydrochlorothiazide 50 mg PO DAILY 90 days loratadine-pseudoephedrine 10-240 mg ER (Claritin-D 24 Hour) 1 tab PO DAILY PRN 90 days omega-3 fatty acids (Fish Oil Concentrate) 1,000 mg PO DAILY semaglutide (weight loss) (Wegovy) 0.25 mg (0.5 mL) subcut QWEEK 4 weeks trazodone 100 mg PO BEDTIME PRN 90 days Tobacco use date assessed: 03/28/24 Dental Screening Dental Screen Date: 03/28/24 Did you have a dental visit in the last 12 months?: Yes Did you have a dental problem in the last 6 months where you did not have access to dental care?: No Was dental information given to patient?: Patient has dentist HPI Annual pe HPI Details Patient is a 58-year-old female here today for an annual physical. ?Patient has a past medical history significant for obesity, palpitations, allergies, AFIB: underwent a cardiac ablation procedure on December 31 at [facility], performed by Dr. Bishop. Post-procedure, flecainide was discontinued, and she is currently on atenolol for two weeks to monitor for nocturnal episodes. Despite the procedure, she reports experiencing minor breakthrough episodes, which were anticipated due to the healing phase.? .. Obesity:? Has been able to lose a significant amount of weight since last office visit.? She is using weight watchers ? She does understand her BMI is over 30 and will continue working on losing weight.? She would like to continue GLP 1 to help her lose weight. She is not experiencing any side effects 0.25 mg weekly thus far she does have establish cardiac disease with AFib. vaccine: , UTD with COVID, UTD Tdap, UTD Shingrex .. MAmmo: DOne 2023 - BIRADS HEEL BOOM OPERATOR: Her HEEL BOOM OPERATOR has retired and needs new HEEL BOOM OPERATOR Colon cancer screening: done 2019 repeat 5 years due to f,hx rectal cancer UTD [facility] Medical History (Updated 03/28/24 @ 13:47 by Antonio Ponce PA-C) Hypovitaminosis D Immunization due Immunization history incomplete Palpitations Obesity Allergies Surgical History (Updated 03/28/24 @ 13:41 by Antonio Ponce PA-C) History of cardiac ablation for atrial fibrillation History of eye surgery History of laparoscopic cholecystectomy History of appendectomy History of tonsillectomy History of hysterectomy Family History Father COPD (chronic obstructive pulmonary disease) CVD (cardiovascular disease) Pulmonary fibrosis Mother Stroke Rectal cancer Hypertension Afib Son No problems noted. 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 1. Little interest or pleasure in doing things: not at all 2. Feeling down, depressed, or hopeless: not at all 3. Trouble falling or staying asleep, or sleeping too much: not at all 4. Feeling tired or having little energy: not at all 5. Poor appetite or overeating: not at all 6. Feeling bad about yourself - or that you are a failure or have let yourself or your family down: not at all 7. Trouble concentrating on things, such as reading the newspaper or watching television: not at all 8. Moving or speaking so slowly that other people could have noticed. Or the opposite - being so fidgety or restless that you have been moving around a lot more than usual: not at all 9. Thoughts that you would be better off or of hurting yourself in some way: not at all Total score: 0 Depression Screening Interpretation: Negative Depression Screening Done: Yes 27708 - PHQ-9 Billing: Yes Source: Developed by Drs. Hipolito Boucher, Alesia Saldaña, Jerald Starkey and colleagues, with an educational daniela from [employer]. Thrive Questionnaire Date Thrive assessed: 03/28/24 I am a: Patient What is your living situation today?: I have a steady place to live Within the past 12 months, did the food you bought not last and you didn't have the money to get more?: Never true Within the past 12 months, did you worry whether your food would run out before you got money to buy more?: Never true Do you have trouble paying for medicines?: No Do you have trouble getting transportation to medical appointments?: No Do you have trouble paying your heating and electricity bill?: No Do you have trouble taking care of your child, family member or friend?: No Do you have trouble with day-to-day activities such as bathing, preparing meals, shopping, managing finances, etc.?: No Are you currently unemployed and looking for a job?: No Are you interested in more education?: No Please select the resources that you would like help with: None Currently or been in a relationship where the following occur: No concerns reported THRIVE Score: 0 AUDIT C Alcohol Use Questionnaire (AUDIT-C) 1. How often do you have a drink containing alcohol?: Monthly or less 2. How many drinks containing alcohol do you have on a typical day when you are drinking?: 1 or 2 3. How often do you have six or more drinks on one occasion?: Never Total Score: 1 CATERINA-7 AMB Questionnaire CATERINA-7 Date CATERINA - 7 assessed: 03/28/24 Feeling nervous, anxious, or on edge: 0 = Not at all Not being able to stop or control worryin = Not at all Worrying too much about different things: 0 = Not at all Trouble relaxin = Not at all Being so restless that it is hard to sit still: 0 = Not at all Becoming easily annoyed or irritable: 0 = Not at all Feeling afraid as if something awful might happen: 0 = Not at all Total CATERINA-7 score (0-4 normal; 5-9 mild; 10-14 moderate; 15-21 severe): 0 Source: Developed by Drs. Hipolito Boucher, Alesia Saldaña, Jerald Starkey and colleagues, with an educational daniela from [employer]. CATERINA-7 Assessment Billing CATERINA-7 Assessment Tool: CATERINA-7 Assessment 79758 Review of Systems Const Denies body aches, Denies chills, Denies excessive sweating, Denies fatigue, Denies fever(s) and Denies headache(s) Eyes Denies blurry vision ENT Denies dysphagia, Denies vertigo, Denies dizziness, Denies headache(s), Denies hearing loss and Denies tinnitus Card Denies chest pain, Denies chest pain with activity, Denies syncope, Denies irregular heart rhythm and Denies dyspnea Resp Denies chest congestion, Denies cough, Denies hemoptysis, Denies dyspnea and Denies wheezing GI Denies abdominal pain, Denies melena, Denies hematochezia, Denies coffee ground emesis, Denies dysphagia, Denies diarrhea, Denies nausea and Denies vomiting Denies urinary frequency, Denies dysuria, Denies urinary hesitancy and Denies urinary urgency Musc Denies arthralgias, Denies limited range of motion, Denies muscle cramps and Denies muscle weakness Skin/Breast Denies rash and Denies skin ulcer Neuro Denies Abnormal speech present, Denies confusion, Denies vertigo, Denies dizziness, Denies syncope, Denies headache(s), Denies memory loss and Denies se izure-like activity Psych Denies anxiety, Denies confusion, Denies depression, Denies memory loss, Denies panic attacks and Denies paranoia Endo Denies excessive sweating, Denies fatigue, Denies flushing, Denies polydipsia and Denies polyuria Aller/Immun Denies wheezing Physical exam (Primary Care) Vital Signs: Last Vital Signs Pulse 60 03/28/24 13:24 BP 148/80 H 03/28/24 13:24 Pulse Ox 99 03/28/24 13:24 Oxygen Delivery Method Room Air 03/28/24 13:24 BMI result Body Mass Index 33.6 BMI Assessment/Plan discussion: High BMI High, discussed plan: lifestyle, weight reduction, dietary and physical activity Tobacco/Smoking Status: Tobacco use Status Tobacco use date assessed 03/28/24 03/28/24 13:28 Patient Tobacco Use Status Former Tobacco user 03/28/24 13:28 Tobacco use type Cigarette 03/28/24 13:28 e-Cigarette/Vaping Use Never Used 03/28/24 13:28 PHQ-9: PHQ-9 Score PHQ-9: Total score 0 03/28/24 13:34 Depression Screening Interpretation: Negative Thrive Assessment: Date of Thrive Assessment Date Thrive assessed 03/28/24 03/28/24 13:28 Currently or been in a relationship where the following occur: No concerns reported Const General: cooperative, comfortable, no acute distress, alert and awake; No confusion Orientation/consciousness: oriented to person, oriented to place, patient oriented x3 and No confusion HENMT Head: Yes normocephalic Ears: external ears normal and TM's normal bilaterally Face and sinus: No sinus tenderness Mouth: Normal oral and palatal mucosa present and tongue normal Teeth and gingiva: dentition normal and gingiva normal Throat: Yes posterior oropharynx normal, Yes tonsils normal and Yes uvula midline Eyes Conjunctivae: conjunctivae normal Sclerae: sclerae normal Pupils: Equal, round and reactive pupils present EOM: EOMs intact bilaterally Direct Ophthalmoscopy: No no photophobia Neck Neck: Yes no lymphadenopathy, No tender and Yes no JVD Thyroid: Thyroid normal Carotids: no bruits Chest Chest palpation & inspection: no tenderness Resp Effort & Inspection: normal respiratory effort, no audible wheezes, not labored and no stridor Auscultation: no crackles, no rales, no rhonchi and no wheezes Cardio Jugular venous distension: no JVD Rate: regular rate, not bradycardic and not tachycardic Rhythm: regular rhythm Bruits: no carotid bruits Peripheral pulses: Peripheral pulses 2+ throughout GI Inspection: Yes normal to inspection, No abdominal wall ecchymosis and No visible herniation Palpation (GI): Soft to palpation, nontender, no guarding, not rigid and No hepatosplenomegaly present Auscultation: normoactive bowel sounds General: Yes no CVA tenderness Back/Spine/Pelvis Back: no CVA tenderness and No back tenderness Cervical Spine: cervical ROM normal Thoracic/Lumbar Spine: thoracic and lumbar spine normal to inspection, straight leg raise negative bilaterally, No thoraco-lumbar ROM limited and No lumbar spinal tenderness Skin Lesions: no lesions Rashes: no rashes Wounds: no wounds Neuro General: oriented to person, oriented to place, patient oriented x3, CN's II-XI intact bilaterally and No confusion Cranial nerves: Yes Equal, round and reactive pupils present and Yes Normal accommodation reflex present Cognition (Neuro): normal cognition Speech: No Abnormal speech present Gait exam (Neuro): Normal gait present Motor exam (neuro): 5/5 motor strength present throughout Extrem Right upper extremity: full ROM; no cyanosis Left upper extremity: full ROM; no cyanosis Right lower extremity: no edema Left lower extremity: no edema Psych Appearance: grossly normal Mental Status: mental status grossly normal Affect: normal affect Attitude: cooperative Thought process: Normal thought process present Coding Level of Care Code Est Pt Prev Care 40-64y(44195) Diagnoses Annual physical exam Z00. Atrial fibrillation I48.91 Atrial fibrillation type: unspecified Class 1 obesity E66.811 Additional Codes CATERINA-7 Assessment Billing - CATERINA-7 Assessment Tool: CATERINA-7 Assessment 28662 ([id number]) PHQ-9 - 75708 - PHQ-9 Billing: Yes ([id number]) Assessment & Plan Assessment & Plan (1) Annual physical exam: Code(s): Z00.00 - Encounter for general adult medical examination without abnormal findings Category: Medical Plan: Has per HPI (2) Atrial fibrillation: Code(s): I48.91 - Unspecified atrial fibrillation Category: Medical Qualifiers: Atrial fibrillation type: unspecified Qualified Code(s): I48.91 - Unspecified atrial fibrillation Plan: Patient recently underwent cardiac atrial ablation in December of 2023 is followed by maintenance specialist. She does have a cardiac event monitor to evaluate for any recurrent AFib. She continues on atenolol for rate control. She has been taken off of flecainide. (3) Class 1 obesity: Code(s): E66.811 - Obesity, class 1 Category: Medical Plan: Patient does understand her BMI is above 30. She is interested in a up titration of her Wegovy to 0.5 mg weekly. She does have establish cardiac disease with AFib. Medications: Refilled hydrochlorothiazide 50 mg PO DAILY 90 days 90 tabs 1RF I10 - Essential (primary) hypertension atenolol 12.5 mg (1/2 x 25 mg) PO DAILY 90 days 45 tabs 1RF R00.0 - Tachycardia, unspecified
--- OUTSIDE RECORDS SUMMARY | 2024-03-28 13:24 | XMS_ITS | Encounter Summary ---
Author Organization [facility] Address [address] [place] [address] Care Team Providers Care Beauty Sales Consultant Name Role Phone Hailey Guerrero MD Primary Care Provider [phone] Reason for Visit * Reason Comments 14 day ROCT * Cardiac Stress Testing (Routine) - Closed Specialty Diagnoses / Procedures Referred By Contblair t Referred To Contact Cardiology Diagnoses PAF (paroxysmal atrial fibrillation) (CMS/HCC) Procedures Cardiac event monitor CT EXTERNAL PATIENT ACTIVATED ECG DOWNLOAD W RESULTS & INTERP <= [address] EXTERNAL PAT AUTO ACTIVATED ECG INCLUDING TRANSMISSION UP TO [address] EXTERNAL MOBILE CV TELEMETRY W ECG RECORDING <=30D PHYSCIAN REV & INTERP CT EXTERNAL MOBILE CV TELEMETRY W ECG RECORDING TECH SUPPORT UP TO [address] ECG UP TO 30 DAYS RECORDING Marylou Pichardo NP [address] [place] [address] Referral ID Status Reason Start Date Expiration Date Visits Re quested Visits Authorized [id number] Closed 03/04/2024 06/02/2024 1 1 Encounter Details Date Type Department Care Team (Latest Contact Info) Description 03/22/2024 9:00 AM EST Ancillary Procedure [facility] - [address] [place] [address] PAF (paroxysmal atrial fibrillation) (CMS/HCC) Social History Tobacco Use Types Packs/Day Years Used Date Smoking Tobacco: Former Cigarettes Q uit: 02/20/1997 Smokeless Tobacco: Never Alcohol Use Standard Drinks/Week Comments Not Currently 0 (1 standard drink = 0.6 oz pur e alcohol) Sex and Gender Information Value Date Recorded Sex Assigned at Not on file Gender Identity Not on file Sexual Orientation Not on file Job Start Date Occupation Industry Not on file Not on file Not on file documented as of this encounter Plan of Treatment Upcoming Encounters Date Type Department Care Team (Late st Contact Info) Description 04/26/2024 7:40 AM EST Office Visit [facility] - [address] [place] [id number] Marylou Pichardo NP [address] [place] [address] Pending Results Name Type Priority Associated Diagnoses Date /Time Cardiac event monitor Cardiac Services Routine PAF (paroxysmal atrial fibrillation) (CMS/HCC) 03/22/2024 12:22 PM EST documented as of this encounter Visit Diagnoses Diagnosis PAF (paroxysmal atrial fibrillation) (CMS/HCC) Atrial fibrillation documented in this encounter Care Teams Beauty Sales Consultant Relationship Specialty Start Date End Date Hailey Guerrero MD 2 [facility] , [address] Physician Associ D/B/A: [facility] EREN Holley PCP - General Internal Medicine 10/13/20 documented as of this encounter
--- OUTSIDE RECORDS SUMMARY | 2024-03-28 13:24 | XMS_ITS | Clinical Summary ---
Author Organization [address] [place] [address] Address [address] [place] [address] Phone Care Team Providers Care Exhibitions Curator Name Role Phone Hailey Guerrero MD Primary Care Provider [phone] Allergies Active Allergy Reactions Criticality Noted Date Comments Diltiazem Other 11/21/2023 Heart racing Sulfa (Sulfonamide Antibiotics) Anaphylaxis High BACTRIM Medications Medication Sig Dispensed Refills Start Date End Date Status atenoloL (TENORMIN) 25 mg tablet Take 0.5 Tablets by mouth daily. Active cetirizine (ZyrTEC) 10 mg chewable tablet Chew 1 tablet (10 mg total) 1 (one) time each day. Active hydroCHLOROthiazide (HYDRODIURIL) 25 mg tablet Take 50 mg by mouth daily. Active cholecalciferol (VITAMIN D-3) 50 mcg (2,000 unit) capsule Take 1 capsule (2,000 Units total) by mouth 1 (one) time each day. Active Active Problems Problem Noted Date Diagnosed Date Chronic venous insufficiency of lower extremity 02/22/2024 Overview (02/22/2024): Prescribed HCTZ Obesity (BMI 30.0-34.9) 10/21/2021 PAF (paroxysmal atrial fibrillation) 09/16/2021 Overview (12/28/2023): Paroxysmal atrial fibrillation. Currently treated with flecainide and atenolol. [id number] score of 0 so currently not anticoagulated. No recent recurrences. Normal ECG. [id number] score is a 1 for female gender Last Assessment & Plan: 58-year-old female with paroxysmal atrial fibrillation with increasing atrial fibrillation burden. To the options for treatment with her that include increasing the flecainide to 100 mg twice daily, transitioning to an alternative antiarrhythmic drug such as sotalol, Multaq or amiodarone and proceeding to pulmonary vein isolation with catheter ablation using pulsed field ablation. I have concerns with the pharmacologic treatment given her resting bradycardia and her ongoing fatigue. I went through the ablation in detail discussing the potential success rate of 70 to 80% with a single procedure along with potential complications that include but are not limited to venous access complications, cardiac perforation and tamponade, injury to the conduction system, thrombus related stroke or [place]. She does want to proceed with the ablation then I will schedule accordingly. She will continue with flecainide and atenolol in the interim. I gave her prescription for Eliquis which is required around the time of the procedure and then post procedure will determine the need for anticoagulation based on her CHADSVASC score. Resolved Problems Problem Noted Date Diagnosed Date Resolved Date SOB (shortness of breath) 10/21/2021 Palpitations 09/16/2021 02/22/2024 Encounters Date Type Department Care Team Description 03/22/2024 9:00 AM EST Ancillary Procedure [facility] [address] [place] [address] PAF (paroxysmal atrial fibrillation) ([facility]) 03/15/2024 Telephone [facility] [address] [place] [address] Marylou Pichardo NP 02/26/2024 Telephone [facility] [address] [place] [address] Galo Diaz MD User Interface Artist 02/22/2024 2:40 PM EST Office Visit [facility] [address] [place] [address] Marylou Pichardo NP PAF (paroxysmal atrial fibrillation) (CMS/HCC) (Primary Dx); Chronic venous insufficiency of lower extremity 12/29/2023 Telephone [facility] [address] [facility] [address] [place] [address] Galo Diaz MD lab work from Last 3 Months Surgical History Surgery Date Site/Laterality Comments [place] [facility] [place] INDICATIONS:Atrial Fibrillation Social History Tobacco Use Types Packs/Day Years [...] file Not on file Not on file Obstetrics History Last Filed Vital Signs Vital Sign Reading Time Taken Comments Blood Pressure 128/78 02/22/2024 2:30 PM EST Pulse 54 02/22/2024 2:30 PM EST Temperature - - Respiratory Rate - - Oxygen Saturation 99% 02/22/2024 2:30 PM EST Inhaled Oxygen Concentration - - Weight 102 kg (225 lb) 02/22/2024 2:30 PM EST Height 172.7 cm (5' 8 ) 02/22/2024 2:30 PM EST Body Mass Index 34.21 02/22/2024 2:30 PM EST Plan of Treatment Upcoming Encounters Date Type Department Care Team (Late st Contact Info) Description 04/26/2024 7:40 AM EST Office Visit [facility] [address] [facility] [address] [place] [phone] Marylou Pichardo NP [address] [facility] [address] [place] [phone] Health Maintenance Due Date Last Done Comments Breast Cancer Screening 1966 Hepatitis B Vaccines (1 of 3 - 19+ 3-dose series) 1985 Cervical Cancer Screening: P ap Smear 05/04/1987 Colorectal Cancer Screening: Colonoscopy 01/23/2022 Depression Screening 01/23/2022 HIV Screening 01/23/2022 Hepatitis C Screening 01/23/2022 Social Influencers of Health Screening 01/23/2022 COVID-19 Vaccine (3 - 2023-2 5 season) 2023 01/11/2021, 05/30/2020 Influenza Vaccine (#1) 2023 Zoster Vaccines (2 of 2) 04/19/2024 02/23/2024 DTaP,Tdap,and Td Vaccines (2 - Td or Tdap) 06/29/2027 06/28/2017 Pneumococcal Vaccine: Pediatrics (0 to 5 Years) and At-Risk Patients (6 to 64 Years) Aged Out 02/23/2024, 08/04/2021 No longer eligible based on patient's age to complete this topic HIB Vaccines Aged Out No longer eligi ble based on patient's age to complete this topic HPV Vaccines Aged Out No longer eligi ble based on patient's age to complete this topic Hepatitis A Vaccines Aged Out No long er eligible based on patient's age to complete this topic IPV Vaccines Aged Out No longer eligi ble based on patient's age to complete this topic MMR Vaccines Aged Out No longer eligi ble based on patient's age to complete this topic Meningococcal ACWY Vaccine Aged Out N o longer eligible based on patient's age to complete this topic RSV Immunization Patients Under 20 months Aged Out No longer eligible b ased on patient's age to complete this topic Varicella Vaccines Aged Out No longer eligible based on patient's age to complete this topic Procedures Procedure Name Priority Date/Time Associated Diagnosis Comments ECG 12-LEAD Routine 02/22/2024 3:13 PM EST PAF (paroxysmal atrial fibrillation) (CMS/[facility]) from Last 3 Months Results * ECG 12 lead (02/22/2024 3:13 PM EST) Ventricular Rate ECG 54 BPM GEMUSE Atrial Rate 54 BPM GEMUSE P-R Interval 114 ms GEMUSE QRS Duration 90 ms GEMUSE Q-T Interval 444 ms GEMUSE QTc 421 ms GEMUSE P Wave [place] 50 degrees GEMUSE R [place] 74 degrees GEMUSE T [place] 55 degrees GEMUSE ECG Interpretation Sinus bradycardia Otherwise normal ECG No previous ECGs available Confirmed by David DIAZ JOHN ([id number]) on 02/27/2024 8:22:02 AM GEMUSE 02/22/2024 2:37 PM EST 02/27/2024 8:22 AM EST Marylou Pichardo CHICKEN BONER ECG ORDERABLES GEMUSE from Last 3 Months Care Teams Exhibitions Curator Relationship Specialty Start Date End Date Hailey Guerrero MD [address] [facility] , [address] [facility] Physician Associ D/B/A: [facility] [place], [place] PCP - General Internal Medicine 10/13/20
--- OUTSIDE RECORDS SUMMARY | 2024-03-28 13:24 | XMS_ITS | Encounter Summary ---
Author Organization [facility] Address [address] [place] [address] Care Team Providers Care Windows Consultant Name Role Phone Hailey Guerrero MD Primary Care Provider [phone] Encounter Details Date Type Department Care Team (Late st Contact Info) Description 03/15/2024 Telephone [facility] - [facility] [address] [facility] [address] [place] [phone] Marylou Pichardo NP [address] [place] [phone] Social History Tobacco Use Types Packs/Day Years [...] on file documented as of this encounter Progress Notes * Toña Calix [place] - 03/15/2024 4:20 PM EST I spoke with Grace, let her know we are trying to get monitor approved by your insurance. She voiced understanding. There is a telephone encounter with this thread. I also advised that she needed to link her accounts for her MyChart. This would make communication much smoother. She was grateful for the call. I will reach out to her next week with an update on the monitor and to make sure she was able to link her accounts. * Marium [place] - 03/15/2024 10:57 AM EST Pt came in today asking about a heart monitor that was to be scheduled , she was here 03/12/24 and wanted to let SL know she sent a message and wanted to know if she got it because she was having trouble sending it, she would like a call, I will route this to Ma documented in this encounter Plan of Treatment Upcoming Encounters Date Type Department Care Team (Late st Contact Info) Description 04/26/2024 7:40 AM EST Office Visit [facility] - [facility] [address] [facility] [address] [place] [phone] Marylou Pichardo, BRAIDED RUG MAKER [address] [place] [phone] documented as of this encounter Visit Diagnoses Not on filedocumented in this encounter Care Teams Windows Consultant Relationship Specialty Start Date End Date Hailey Guerrero MD [address] [place] [address] , [facility] [address] [facility] Physician Associ D/B/A: [facility] [place] PCP - General Internal Medicine 10/13/20 documented as of this encounter
--- OUTSIDE RECORDS SUMMARY | 2024-03-28 13:24 | XMS_ITS | Encounter Summary ---
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 Encounter Details Date Type Department Care Team (Late st Contact Info) Description 02/26/2024 Telephone [facility] [address] [facility] [address] [place] [phone] Galo Gomez MD [address] [place] [address] 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 * Osbaldo Sharma MA - 03/12/2024 3:22 PM EST Patient is asking what the status of her Monitor. * Susan Wallace - 03/04/2024 4:17 PM EST Printed office note and I was able yo submit that along with the patients EKG to [facility] of [place] for a medical necessity review against medical policy 119. * Lakeisha Cruz MA - 03/01/2024 3:21 PM EST The Go To MD JIE for 02/22/[address] Springer[address] Since Dr. Gomez was in the Lab and Dr. Springer was covering the afternoon she will co-sign the OV for Marylou Pichardo NP. I have spoken with Dr. Springer who is reviewing the 's OV note and signing. Thank you. * Susan Wallace - 03/01/2024 1:33 PM EST Is there anyway you can determine who the supervising provider is, so the note can be co-signed so I can submit this to [facility] for a medical necessity review. * Susan Wallace - 03/01/2024 11:49 AM EST Its the 02.22.24 encounter. Is MD Gomez not the supervising provider, the note has him listed as the primary senior web engineer. * Susan Wallace - 02/26/2024 4:02 PM EST Hi , can you please co-sign the patients office note with Marylou Pichardo on 02.22.24 as I need to submit this with the PA request for the Monitor that was ordered. documented in this encounter Plan of Treatment Upcoming Encounters Date Type Department Care Team (Late st Contact Info) Description 04/26/2024 7:40 AM EST Office Visit [facility] [address] [facility] [address] [place] [phone] Marylou Pichardo, HOGSHEAD HEAD MATCHER [address] [place] [phone] documented as of this encounter Visit Diagnoses Not on filedocumented in this encounter Care Teams Complex Case Manager Relationship Specialty Start Date End Date Hailey Guerrero MD [address] [place] [address] , [address] [facility]A: [facility] [place], [place] PCP - General Internal Medicine 10/13/20 documented as of this encounter
== END 2024-03-28 14:00 | disposition home or self-care (01) ==
PROVIDERS: PCP Physician Assistant; Visit Provider Physician Assistant
DX: Z00.00 Encounter for general adult medical examination without abnormal findings (principal); I48.91 Unspecified atrial fibrillation; E66.811 Obesity, class 1; Z68.33 Body mass index [BMI] 33.0-33.9, adult

== ENCOUNTER → 2024-03-28 13:22 | Outpatient (BNVA) | payer BC, SELFPAY | PROVIDERS: PCP Physician Assistant; Visit Provider Physician Assistant | DX: Z00.00 Encounter for general adult medical examination without abnormal findings (principal); I48.91 Unspecified atrial fibrillation; E66.811 Obesity, class 1; Z68.33 Body mass index [BMI] 33.0-33.9, adult | CPT/HCPCS: 96127 ==

== ENCOUNTER 2024-06-25 14:23 | Outpatient (AMB) | payer BC, SELFPAY ==
--- NOTE | 2024-06-25 14:31 | MHC.PC.OV ---
Vital Signs 06/25/24 14:40 Height 5 ft 8 in Weight 212 lb 4 oz BMI 32.3 BP 130/78 Blood Pressure Location Lt brachial Position Sitting Pulse 58 Pulse Source Pulse Oximeter Pulse Oximetry (%) 100 Oxygen Delivery Method Room Air Intake Visit Reasons: f/u Weight check Food Vendor Required: No Accompanied by: Self / Same As Patient Allergies Sulfa (Sulfonamide Antibiotics) [SULFA (SULFONAMIDE ANTIBIOTICS)] Allergy (Severe, Verified 06/25/24 14:41) HIVES,DIFFICULTY BREATHING, rash sulfamethoxazole [From Bactrim] Allergy (Unknown, Verified 06/25/24 14:41) unknown trimethoprim [From Bactrim] Allergy (Unknown, Verified 06/25/24 14:41) unknown bupropion [From Wellbutrin] Adverse Reaction (Intermediate, Verified 06/25/24 14:41) arthralgia Medication List - Last Reconciled 06/25/24 by Antonio Ponce PA-C cetirizine (Zyrtec) 10 mg PO DAILY cholecalciferol (vitamin D3) 25 mcg PO DAILY coenzyme Q10 (Co Q-10) 200 mg PO DAILY flavoring agent (bulk) ea miscellaneous fluticasone propionate 50 mcg/actuation (Flonase Allergy Relief) 1 spray intranasal DAILY hydrochlorothiazide 50 mg PO DAILY 90 days loratadine-pseudoephedrine 10-240 mg ER (Claritin-D 24 Hour) 1 tab PO DAILY PRN 90 days multivitamin 1 tab PO DAILY omega 1-wnx-kwn-fish oil 900 mg-360 mg- 455 mg-1,000 mg (Fish Oil) caps PO omega-3 fatty acids (Fish Oil Concentrate) 1,000 mg PO DAILY prasterone (dhea) (DHEA) 25 mg PO DAILY semaglutide (weight loss) (Wegovy) 0.5 mg (0.5 mL) subcut QWEEK 4 weeks semaglutide (weight loss) (Wegovy) 0.25 mg (0.5 mL) subcut QWEEK 4 weeks semaglutide (weight loss) (Wegovy) 1 mg (0.5 mL) subcut Q7D 4 weeks trazodone 100 mg PO BEDTIME PRN 90 days Tobacco use date assessed: 03/28/24 Dental Screening Dental Screen Date: 03/28/24 HPI f/u Weight check HPI Details Patient is a 59-year-old female here today for follow-up visit ?Patient has a past medical history significant for obesity, palpitations, allergies, AFIB: underwent a cardiac ablation procedure on December 31 at [facility], performed by Dr. Bishop. Post-procedure, flecainide was discontinued. She is now also off of atenolol. She has not had any recurrent breakthrough episodes of heart palpitations. .. Class 1 Obesity:? Has been able to lose a significant amount of weight since last office visit.? She is using weight watchers mona. ? She does understand her BMI is over 30 and will continue working on losing weight.? She would like to continue Ozempic 1 mg to maintain weight loss. Currently weight is 212 lb and BMI at 32.3 Her goal weight is 195 lb [facility] Medical History Hypovitaminosis D Immunization due Immunization history incomplete Palpitations Obesity Allergies Surgical History History of cardiac ablation for atrial fibrillation History of eye surgery History of laparoscopic cholecystectomy History of appendectomy History of tonsillectomy History of hysterectomy Family History Father COPD (chronic obstructive pulmonary disease) CVD (cardiovascular disease) Pulmonary fibrosis Mother Stroke Rectal cancer Hypertension Afib Son No problems noted. 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 Cognitive needs: No Hearing needs: No Vision needs: Yes Questionnaire Thrive Questionnaire Date Thrive assessed: 03/25/24 I am a: Patient What is your living situation today?: I have a steady place to live Within the past 12 months, did the food you bought not last and you didn't have the money to get more?: Never true Within the past 12 months, did you worry whether your food would run out before you got money to buy more?: Never true Do you have trouble paying for medicines?: No Do you have trouble getting transportation to medical appointments?: No Do you have trouble paying your heating and electricity bill?: No Do you have trouble taking care of your child, family member or friend?: No Do you have trouble with day-to-day activities such as bathing, preparing meals, shopping, managing finances, etc.?: No Are you currently unemployed and looking for a job?: No Are you interested in more education?: No Please select the resources that you would like help with: None Currently or been in a relationship where the following occur: No concerns reported THRIVE Score: 0 CATERINA-7 AMB Questionnaire CATERINA-7 Date CATERINA - 7 assessed: 03/28/24 Source: Developed by Drs. Hipolito Boucher, Alesia Saldaña, Jerald Starkey and colleagues, with an educational daniela from [employer]. Review of Systems Const Denies headache(s) Eyes Denies loss of vision ENT Denies vertigo, Denies dizziness, Denies headache(s) and Denies sore throat Card Denies chest pain, Denies leg edema and Denies lightheadedness Resp Denies cough, Denies hemoptysis and Denies wheezing GI Denies abdominal pain, Denies melena, Denies constipation, Denies diarrhea and Denies vomiting Denies urinary frequency, Denies dysuria and Denies urinary urgency Musc Denies arthralgias, Denies joint swelling, Denies numbness and Denies tingling Neuro Denies Abnormal speech present, Denies behavioral changes, Denies vertigo, Denies dizziness, Denies headache(s), Denies loss of vision, Denies memory loss, Denies numbness and Denies tingling Psych Denies anxiety, Denies behavioral changes, Denies depression, Denies memory loss and Denies panic attacks Brennen/Lymph Denies easy bleeding and Denies easy bruising Aller/Immun Denies wheezing Physical exam (Primary Care) Vital Signs: Last Vital Signs Pulse 58 06/25/24 14:40 BP 130/78 06/25/24 14:40 Pulse Ox 100 06/25/24 14:40 Oxygen Delivery Method Room Air 06/25/24 14:40 BMI result Body Mass Index 32.3 BMI Assessment/Plan discussion: High BMI High, discussed plan: lifestyle, weight reduction, dietary and physical activity Tobacco/Smoking Status: Tobacco use Status Tobacco use date assessed 03/28/24 06/25/24 14:34 Patient Tobacco Use Status Former Tobacco user 06/25/24 14:34 Tobacco use type Cigarette 06/25/24 14:34 e-Cigarette/Vaping Use Never Used 06/25/24 14:34 Thrive Assessment: Date of Thrive Assessment Date Thrive assessed 03/25/24 06/25/24 14:34 Currently or been in a relationship where the following occur: No concerns reported Const General: healthy appearing, no acute distress, alert and awake Nutritional Appearance: well nourished Orientation/consciousness: oriented to person, oriented to place and oriented to time HENMT Ears: TM's normal bilaterally General nose exam: Normal nasal mucous membranes and turbinates present Eyes Conjunctivae: conjunctivae normal Sclerae: sclerae normal Pupils: Equal, round and reactive pupils present Neck Neck: Yes no lymphadenopathy and Yes no JVD Thyroid: Thyroid normal Carotids: no bruits Resp Effort & Inspection: normal respiratory effort and not tachypneic Auscultation: no crackles, no rales, no rhonchi and no wheezes Cardio Rate: regular rate Rhythm: regular rhythm Heart sounds: no murmurs and normal S1 and S2 GI Palpation (GI): Soft to palpation, nontender, no hepatomegaly and no splenomegaly Auscultation: normal bowel sounds Skin General skin exam: no rashes or lesions noted and dry skin Neuro General: oriented to person, oriented to place and oriented to time Cranial nerves: Yes Equal, round and reactive pupils present Speech: No Abnormal speech present Gait exam (Neuro): Normal gait present Motor exam (neuro): no tremor noted Extrem Right upper extremity: full ROM Left upper extremity: full ROM Right lower extremity: full ROM; no edema Left lower extremity: full ROM; no edema Psych Mental Status: mental status grossly normal Speech and movement: Normal speech and movement present Affect: normal affect Attitude: cooperative Thought process: Normal thought process present Coding Level of Care Code Est Pt Level 4 (35079) Diagnoses Atrial fibrillation I48.91 Atrial fibrillation type: unspecified Class 1 obesity E66.811 Assessment & Plan Assessment & Plan (1) Atrial fibrillation: Code(s): I48.91 - Unspecified atrial fibrillation Category: Medical Qualifiers: Atrial fibrillation type: unspecified Qualified Code(s): I48.91 - Unspecified atrial fibrillation Plan: Patient recently underwent cardiac atrial ablation in December of 2023 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 She does have a cardiac event monitor to evaluate for any recurrent AFib. She is now off of flecainide and atenolol. She has not had any breakthrough heart palpitations episodes. (2) Class 1 obesity: Code(s): E66.811 - Obesity, class 1 Category: Medical Plan: Patient does understand her BMI is above 30. She does have establish cardiac disease with AFib. She continues on Wegovy 1 mg weekly and has been able to maintain weight loss. She has lost 10 lb since last office visit. She denies any side effects from the GLP 1 medication. Seems to be significantly benefitting her as she has been able to lose weight and AFib symptoms are stable. She continues to use weight watchers in his speaking with a registered dietitian in his trying some natural supplements to help weight as well Medications: Refilled loratadine-pseudoephedrine 10-240 mg ER (Claritin-D 24 Hour) 1 tab PO DAILY 90 days PRN 90 tabs 1RF allergy symptoms T78.40XA - Allergy, unspecified, initial encounter On Hold hydrochlorothiazide Hold Comment: Doctor's Order 50 mg PO DAILY 90 days 90 tabs 1RF I10 - Essential (primary) hypertension
[2024-06-25 14:40] VITALS: BP 130/78; PULSE 58; O2SAT 100; BMI 32.3
--- OUTSIDE RECORDS SUMMARY | 2024-06-25 15:43 | XMS_ITS ---
[facility] Address [address] [place] [address] Care Team Providers Care Numerologist Name Role Phone Antonio Ponce Primary Care Provider Unavailab Bob Jimenez Unavailable [phone] Allergies Allergen (clinical drug ingredient) Drug/Non Drug Allergy documented on EMR Reaction Allergy Type Onset Date Status Band-Aid (uncoded) skin reaction Allergy Active sulfamethoxazole / trimethoprim Bactrim breathing, hives Drug Allergy Active Biaxin yeast infection Drug Allergy A ctive erythromycin Erythromycin yeast infection Drug Allergy Active azithromycin Zithromax Z-Doc thrush Drug Allergy Active Substance with sulfonamide structure and antibacterial mechanism of action (substance) Sulfa Antibiotics anaphylaxis Drug Allergy Active REASON FOR VISIT Ingrown Nail, Foot pain Medications Medication SIG (Take, Route, Frequency, Duration) Notes Start Date End Date Status Atenolol 10 mg Not-T aking Loratadine 10 MG Orally Not -Taking hydroCHLOROthiazide 50 MG 1 tablet in th e morning Orally Once a day Active Vitamin D 2000 UNIT Orally Active ZyrTEC Allergy Activ e Fish Oil 1000 MG Orally Not -Taking Social History Tobacco Use: Social History Observation Description Date Details (start date - stop date) Never Smoker NA - NA Tobacco use other than smoking: Question Answer Notes Are you an other tobacco user? No Tobacco Control (Standard) Question Answer Notes Tobacco use: Nonsmoker Additional Findings: Tobacco non-user Current no nsmoker AUDIT-C (Standard) Question Answer Notes Did you have a drink containing alcohol in the p ast year? No Points 0 Interpretation Negative Problems Problem Type SNOMED Code ICD Code Onset Dates Problem Status W/U Status Risk Notes Problem Acquired hallux valgus (79127597) Hallux valgus (acquired), right foot (M20.11) Active confirmed Vital Signs Height 5 ft 8 in in 2024 Weight 218 lbs 2024 BMI 33.14 kg/m2 2024 Blood pressure systolic 120 mm Hg 05/04/19 25 Blood pressure diastolic 80 mm Hg 025 Procedures Procedure Date Ordered Date Performed Result Body Sit e 58705-Cbgfxxrj Plate 2024 N/A Encounters Encounter Location Date Provider Diagnosis [facility] [address] [place] [address] 2024 Bob Hall Ingrown nail L60.0 ; Pain in right foot M79.671 ; Pain in right ankle and joints of right foot M25.571 ; Bursitis of right foot M77.51 and Hallux valgus (acquired), right foot M20.11 Assessments Encounter Date Diagnosis (ICD Code) Assessment Notes Treatment Notes Treatment Clinical Notes Section Notes 2024 Ingrown nail (ICD-10 - L60.0) 2024 Pain in right foot (ICD-10 - M79.671) 2024 Pain in right ankle and joints of right foot (ICD-10 - M25.571) 2024 Bursitis of right foot (ICD-10 - M77.51) 2024 Hallux valgus (acquired), right foot (ICD-10 - M20.11) Plan Of Treatment Pending Test Test Name Order Date 99126-Ejlunjjy Plate 2024 Next Appt Details Follow Up: prn, Reason: Procedure Notes * Category Sub-Category Detail Notes Nail Avulsion Procedure A fine sterile e levator was placed between the eponychium, nail fold, and nail plate to separate the structures. A sterile nail splitter, and/or sterile 316 blade, was then used to longitudinally section the nail along its entire length through the eponychium to the area under the nail fold. The offending portion of nail was from the nail bed with a rolling action and then removed with a hemostat. No underlying bone was identified. There was minimal bleeding as hemostasis was achieved through the temporary use of either a digital tourniquet or the aforementioned local with epinephrine. A bacitracin sterile dressing was applied. Local wound aftercare instructions were discussed and dispensed. The patient was informed of both conservative and future surgical procedures to prevent recurrence. Tylenol or Motrin was recommended for pain or discomfort - 27441 Anesthesia 3cc of 1 percent Lid ocaine/Epi 1:200,000 local anesthesic utilizing aseptic technique Location Medial nail border, T5 Progress Notes * Grace EVERETTDOB: [birth year] (59 yo F)Acc No.[id number]:2024 Progress Notes Patient:?Grace EVERETT Provider:?Bob Hall DPM :1965???Age:59 Y???Sex:Female D ate:2024 Address:[address] [place], [place] [id number] Pcp:Antonio Ponce Subjective: * Chief Complaints: * ???Ingrown NailFoot pain * HPI: ???Foot Pain:?Location:?Inside, Great toe joint, RIGHT.?Duration:?several years.?Course:?unchanged.?Aggravated:?any pressure.?Treatments:?rest/alter normal daily activity.? * ROS:?General/Constitutional:?Nausea?denies.?Vomiting?denies.?Hunger Thirst?denies.?Loss appetite?denies.?Chills?denies.?Fatigue?denies.?Fever?denies.?Night Sweats?denies.?Unexplained weight loss?denies.?Unexplained weight gain?denies.?HEENTM:?Dentures?denies.?Dizziness?denies.?Glasses/contacts?admits.?Retinopathy?de nies.?Blurred/double vision?denies.?TMJ?denies.?Discharge/drainage?denies.?Implants?denies.?Sore throat?denies.?Dental implants?denies.?Hard of hearing ?denies.?Difficulty chewing/swallowing/speaking?denies.?Nose bleeds?denies.?Sore mouth?denies.?Respiratory:?On Oxygen?denies.?Pneumonia/pleurisy?denies.?Bronchitis?denies.?Emphysema?denies.?C oughing?denies.?Cough blood?denies.?Shortness of breath?denies.?Wheezing?denies.?Cardiovascular:?Pacemaker?denies.?MVP?denies.?WPW?denies.?CHF?denies.?Heart attack?denies.?Septal defect?denies.?Rapid beat?denies.?Chest pain ?denies.?Atrial Fib.?denies.?Murmur/Palpitations?denies.?Gastrointestinal:?Hemorrhoids?denies.?Stomach/Abdominal pain?denies.?Dark blood stool?denies.?Irritable bowel ?denies.?Constipation?denies.?Diarrhea?denies.?Hematology:?Swelling?denies.?Clots?denies.?Varicose Veins?denies.?Bruising?denies.?Bleeding problem?denies.?Genitourinary:?Blood urine?denies.?Frequent/Painfu/urination/bladder control?denies.?Kidney stones?denies.?Infection (UTI)?denies.?Nephropathy?denies.?sex trans dis (STD)?denies.?Prostate?denies.?Musculoskeletal:?Hammertoes?denies.?Bunions?admits.?Back Pain?denies.?Muscle Cramps/ Resting?denies.?Muscle cramps / walking?denies.?Generalized aches and pains?admits.?Weakness?denies.?Integ.:?Robbins?denies.?Scars?denies.?Corns/calluses?denies.?Ingrown nails?admits.?Painful nails?denies.?Open Sores?denies.?Rashes?denies.?Neurologic:?Difficulty sleeping?denies.?Brain disorder?denies.?Numbness?denies.?Balance trouble?denies.?Confusion?denies.?Fainting/blackouts?denies.?Tingling?denies.?Tr emors?denies.? * Medical History:? * Surgical History:?hysterecto my 2011tonsilectomy 1973lazy eye age 6apendectomy 1995gall bladder 1997 * Hospitalization/Major Diagno stic Procedure:?Denies Past Hospitalization * Family History:?Mother: dece ased, Elbert-rectal Cancer, Foot problems, diagnosed with Other malignant neoplasm of unspecified site, Unspecified essential hypertension, Unspecified cerebral artery occlusion with cerebral infarction.?Father: , COPD, emphysema, pulmonary fibrosis, diagnosed with Unspecified essential hypertension, Unspecified cerebral artery occlusion with cerebral infarction, Family history of arthritis.?Paternal Grand Mother: diagnosed with Unspecified cerebral artery occlusion with cerebral infarction.?Paternal Grand Father: diagnosed with Unspecified cerebral artery occlusion with cerebral infarction.?Maternal Grand Mother: diagnosed with Unspecified cerebral artery occlusion with cerebral infarction.?Maternal Grand Father: diagnosed with Unspecified heart disease, Unspecified cerebral artery occlusion with cerebral infarction.? * Social History:?Tobacco Use:?Tobacco use other than smoking?Are you an other tobacco user??No ?Tobacco Control (Standard)?Tobacco use:?Nonsmoker ?Additional Findings: Tobacco non-user?Current nonsmoker ???Drugs/Alcohol:?Drugs?Have you used drugs other than those for medical reasons in the past 12 months??No ???Miscellaneous:?Caffeine: yes, frequency: 1 cup coffee per day, occassional tea. ?Children: yes, 1. ?Exercise: yes, Recumbent cycling, walking. ?Marital status: . ?Occupation: [employer] - [employer] ???Drug/Alcohol:?AUDIT-C (Standard)?Did you have a drink containing alcohol in the past year??No ?Points?0 ?Interpretation?Negative * Medications:?TakingZyrTEC Al lergy hydroCHLOROthiazide 50 MG Tablet 1 tablet in the morning Orally Once a day Vitamin D 2000 UNIT Capsule Orally Taking ZyrTEC Allergy Taking hydroCHLOROthiazide 50 MG Tablet 1 tablet in the morning Orally Once a day Taking Vitamin D 2000 UNIT Capsule Orally Not-Taking/PRNAtenolol 10 mg Loratadine 10 MG Capsule Orally Fish Oil 1000 MG Capsule Orally Medication List reviewed and reconciled with the patientNot-Taking/PRN Atenolol 10 mg Not-Taking/PRN Loratadine 10 MG Capsule Orally Not-Taking/PRN Fish Oil 1000 MG Capsule Orally Medication List reviewed and reconciled with the patient * Allergies:?Erythromycin: yea st infectionBiaxin: yeast infectionBactrim: breathing, hivesZithromax Z-Doc: thrushSulfa Antibiotics: anaphylaxisBand-Aid: skin reactionyes[Allergies Verified] Objective: * Vitals:?Ht:5 ft 8 in, Wt:218 , BMI:33.14, Shoe size:11, BP:120/80mm Hg, Ht-cm: 172.72 cm, Wt-k.88 kg. * Examination: ???Ingrown Nail: ?INSPECTION:?Reveals nail incurvation, pain on palpation, groove hypertrophy, Medial nail border, T5.?General Examination: ?GENERAL APPEARANCE:?Reveals a pleasant, alert, well-nourished, well- developed, well hydrated individual, who demonstrates proper attention to hygiene/body habitus, and is in no acute distress, Pt serves as own?historian for office visit today.?ORIENTED:?person, place, and time.?Neurological: ?SENSORY:?Neurological exam reveals intact sensorium, pain sensation normal, vibration sensation intact, pinprick sensation is normal in the lower extremities, Pt denies, anesthesia, burning, paresthesia, tingling, B/L.?TINEL'S COMPRESSION:? Negative, Saphenous nerve distribution, Right.?DEEP TENDON REFLEXES:?Achilles, 2/4, B/L.?Vascular: ?DP PULSES (B):?3/4, B/L.?PT PULSES (B):?3/4, B/L.?CAPILLARY FILL TIME:?immediate, all digits, B/L.?TROPHIC CONDITION-TEXTURE/ELASTICITY/TURGOR/HAIR GROWTH (B):?normal, B/L.?TEMPERTURE GRADIENT (C):?warm to cool, proximal to distal, B/L.?PIGMENTATION:?normal, B/L.?EDEMA (C):?absent, B/L.?Dermatologic: ?SKIN FINDINGS:?Skin exam reveals normal texture, elasticity, and turgor. There are no masses. The interspaces are clear.?Orthopedic: ?MUSCLE STRENGTH:?5/5 all groups in a symmetrical fashion , B/L.?BUNION:? Medially prominent 1st MPJ,(+) Pain on palpation,inflammation present medially,Lateral tracking 1st MPJ incompletely reducible, RIGHT.?FOOTWEAR:?shoe gear properties exacerbate patients foot/toe deformity.? Assessment: * Assessment: 1.?Ingrown nail - L60.0???Sp ecify :Medial nail border,?T5???2.?Pain in right ankle and joints of right foot - M25.571???3.?Pain in right foot - M79.671 (Primary)???4.?Bursitis of right foot - M77.51???5.?Hallux valgus (acquired), right foot - M20.11???Specify :Chronic problem, Stable (1=3,2=4)??? Plan: * Treatment: * Procedures:?Nail Avulsion:?Location?Medial nail border,?T5.?Anesthesia?3cc of 1 percent Lidocaine/Epi 1:200,000 local anesthesic utilizing aseptic technique.?Procedure?A fine sterile elevator was placed between the eponychium, nail fold, and nail plate to separate the structures. A sterile nail splitter, and/or sterile 316 blade, was then used to longitudinally section the nail along its entire length through the eponychium to the area under the nail fold. The offending portion of nail was from the nail bed with a rolling action and then removed with a hemostat. No underlying bone was identified. There was minimal bleeding as hemostasis was achieved through the temporary use of either a digital tourniquet or the aforementioned local with epinephrine. A bacitracin sterile dressing was applied. Local wound aftercare instructions were discussed and dispensed. The patient was informed of both conservative and future surgical procedures to prevent recurrence. Tylenol or Motrin was recommended for pain or discomfort - 18078.? * Procedure Codes:?95973 Avuls ion Plate, Modifiers: T5 * Preventive Medicine:? ??Counseling:?Discussion:?-03: Office or other outpatient visit for the evaluation and management of a new patient, which required a medically appropriate history and/or examination and LOW level of DECISION MAKING for: 1 STABLE ACUTE UNCOMPLICATED PROBLEM, 2 OR MORE MINOR PROBLEMS, OR 1 STABLE CHRONIC PROBLEM, THAT POSE(S) A LOW RISK FOR MORBIDITY/MORTALITY. The visit on the day of the encounter encompassed interpreting the data and educating the patient as to the nature of their condition, treatment options available according to their individual PMH, meds, allergies, and overall health/living conditions, as well as any potential risks or complications that may occur from a failure to adhere to, and participate in, the recommended course of therapy. The discussion included a complete verbal, and/or written explanation of the examination results, any x-rays taken, the proposed diagnosis, and outline of the treatment plan. A schedule for future care needs was also explained. The patient verbalized an understanding of the instructions at this time and agreed to be an active participant in their treatment. If the patient should think of any questions or concerns after the visit, I have encouraged the patient to call the office.?Digital Treatment:?HV - I explained to the patient the risks/benefits of all the different treatment options for their pain including: No treatment at all, Rest, Ice, New/supportive/wider/deeper Shoe gear, Digital Padding/Strapping/Taping/Bracing/Gel protective sleeves, Foot/Ankle AFO Bracing, Stretching exercises, Deep Tissue Massage, Arch support/shoe inserts with splay metatarsal padding, and Custom orthoses. I insisted that any digital devices be removed daily and not worn overnight for safety. The patient is to carefully examine the toes daily for any skin irritation while using any splinting or padding device. The advantages and disadvantages of each option were discussed and the patients questions re: shoe gear, padding, custom vs prefabricated inserts, activity level, and consistency in home treatment regimens for optimal success were answered to their verbally confirmed satisfaction.?Discussion for Bunion sx:?Several different types of Bunion surgeries were discussed with the patient, including, but not limited to: Modified Camargo bone removal and soft tissue release/realignment, Fady osteotomy with soft tissue release/realignment and internal fixation, Shaft v Base wedge osteotomies with internal fixation, and Lapidus joint fusion procedures with internal fixation. We discussed the risks of having surgery (described below) vs not having surgery (persistent pain, deformity, risk for skin ulceration/infection, loss of toe) as well as the potential surgical complications including, but not limited to: pain, swelling, bleeding, scarring, numbness, infection, delayed/non healing, floppy/unstable/shorthened toe, recurrence, failure of the procedure, overcorrection leading to plantarflexed/downward/upward positioned toe, recurrence, need for further surgery, as well as the possibility for loss of the toe itself. We discussed the use of IV/Local regional anesthesia, and the usual post-op course for healing. No guarentees were given. The patient verbally indicated a full understanding of the above conversation, and any other of their questions were answered to their satisfaction.?Orthotics:?I explained to the patient the benefits of OT use. I explained that orthoses are medically necessary to decrease the foot pain through proper mechanical control, support of their foot, cushion the forefoot by supplementing the soft tissue, possibly delay of the progression of the bunion deformity, possibly prevent surgery.?P.R.I.C.E.:?The patient was counseled on the use of P.R.I.C.E. and NSAIDS (if well tolerated) to aid in the recovery from their painful condition , Recommended Topical analgesics including Biofreeze/Aspercream/Voltaren gel.?Shoe Gear Counseling:?The patient and I reviewed the types of shoes they should be wearing. My recommendation included obtaining a well-fitted shoe with a good supportive, non-foldable nor twistable sole, plenty of toe/room for the forefoot, and proper arch support. Based on todays examination, I recommended the patient look for new shoes, by having their feet professionally measured. We discussed that generally the best time of the day for a shoe fitting is the afternoon. Different shoes types and brands to best match the patients occupation and vocation were discussed. Specific brand selection will be up to the patient, their individual foot condition/deformities, and fit. The patient and I reviewed the standard new shoe break in period by wearing them for a few hours a day while checking for redness or sores as wear time is increased. The patient verbally confirmed to understanding the information discussed.? ??Screening/Special Tests:?Fall Risk?Screening:?No falls in the past year ?FALLS: Screening for Future Fall Risk?Have you had any falls with injury in the past year??No * Follow Up:?prn * Images: * Sign off status: Completed true * Provider:?Bob Hall DPM Date:?2024 Generated for Monty reid/Jennifer/Carolyn on:?06/25/2024 03:42 PM EDT History and Physical Notes * HPI (History of Present Illness) Category Sub-Category Detail Notes Category Not es Foot Pain Location: Inside, Great toe joint, RIG HT Duration: several years Course: unchanged Aggravated: any pressure Treatments: rest/alter normal da anthony activity Examination Category Sub-Category Detail Notes Category Not es Ingrown Nail INSPECTION: Reveals nail inc urvation, pain on palpation, groove hypertrophy, Medial nail border, T5 Neurological SENSORY: Neurological exa m reveals intact sensorium, pain sensation normal, vibration sensation intact, pinprick sensation is normal in the lower extremities, Pt denies, anesthesia, burning, paresthesia, tingling, B/L TINEL'S COMPRESSION: Negative, Saphenous nerve distribution, Right DEEP TENDON REFLEXES: Achilles, 2/4, B/L Dermatologic SKIN FINDINGS: Skin exam reveal s normal texture, elasticity, and turgor. There are no masses. The interspaces are clear Orthopedic BUNION: Medially promine nt 1st MPJ, (+) Pain on palpation, inflammation present medially, Lateral tracking 1st MPJ incompletely reducible, RIGHT FOOTWEAR EVALUATION: shoe gear propertie s exacerbate patients foot/toe deformity MUSCLE STRENGTH: 5/5 all groups in a symmetrical fashion , B/L General Examination GENERAL APPEARANCE: Reveals a pleasant, alert, well- nourished, well-developed, well hydrated individual, who demonstrates proper attention to hygiene/body habitus, and is in no acute distress, Pt serves as own historian for office visit today ORIENTED: person, place, and t aileen Vascular DP PULSES (B): 3/4, B/L PT PULSES (B): 3/4, B/L CAPILLARY FILL TIME: immediate, all digi ts, B/L TEMPERTURE GRADIENT (C): warm to cool, p roximal to distal, B/L TROPHIC CONDITION-TEXTURE/ELASTICITY/TURGOR/HAIR GROWTH (B): normal, B/L EDEMA (C): absent, B/L PIGMENTATION: normal, B/L
--- OUTSIDE RECORDS SUMMARY | 2024-06-25 15:43 | XMS_ITS | Clinical Summary ---
Author Organization [address] [place] [address] Address [address] [place] [address] Phone Care Team Providers Care Air Brake Worker Name Role Phone Hailey Guerrero MD Primary Care Provider [phone] Allergies Active Allergy Reactions Criticality Noted Date Comments Azithromycin 05/30/2024 Other Reaction(s): thrush Bupropion 04/08/2024 Clarithromycin 05/30/2024 Other Reaction(s): yeast infection Diltiazem Other 11/21/2023 Heart racing Erythromycin 05/30/2024 Other Reaction(s): yeast infection Sulfa (Sulfonamide Antibiotics) Anaphylaxis High 11/05/2020 BACTRIM Sulfamethoxazole 04/08/2024 Trimethoprim 04/08/2024 Medications cholecalciferol (VITAMIN D-3) 50 mcg (2,000 unit) capsule Take 1 capsule (2,000 Units total) by mouth 1 (one) time each day. Active hydroCHLOROthia zide (HYDRODIURIL) 50 mg tablet Take 1 tablet (50 mg total) by mouth 1 (one) time each day. Active cetirizine (ZyrTEC) 10 mg capsule Take 1 capsule (10 mg total) by mouth 1 (one) time each day. 4 Active Wegovy 0.25 mg/0.5 mL injection pen Inject 0.25 mg under the skin every 7 (seven) days. 5 Active fluticasone propionate (FLONASE) 50 mcg/actuation nasal spray Administer 1 spray into each nostril 1 (one) time each day. Shake gently. Before first use, prime pump. After use, clean tip and replace cap. Active loratadine (CLARITIN REDITABS) 10 mg dispersible tablet Take 1 tablet (10 mg total) by mouth 1 (one) time each day. Active omega-3 acid ethyl esters (LOVAZA) 1 gram capsule Take 1 capsule (1,000 mg total) by mouth 1 (one) time each day. Active polyethylene glycol (Golytely) 236-22.74-6.74 -5.86 gram solution Take 4L by mouth once for one dose. May substitue any PEG. Starting at 6PM the night before your procedure drink 1 8oz glasses at your own pace until you complete half of the gallon. Finish 2nd half of the gallon 5 hours before your procedure. 4000 mL 5 Active MAGNESIUM GLYCINATE ORAL Take by mouth. Active docosahexaenoic acid-epa (Fish OiL) 120-180 mg capsule Take by mouth. Activ e coenzyme Q-10 (Co Q-10) 100 mg capsule Take 1 capsule (100 mg total) by mouth 1 (one) time each day. Active multivitamin tablet Take 1 tablet by mouth 1 (one) time each day. Active atenoloL (TENORMIN) 25 mg tablet Take 0.5 Tablets by mouth daily. 05/31/19 25 Discontin ued(Thera py completed ) Active Problems Problem Noted Date Diagnosed Date Chronic venous insufficiency of lower extremity 02/22/2024 Overview (02/22/2024): Prescribed HCTZ Obesity (BMI 30.0-34.9) 10/21/2021 PAF (paroxysmal atrial fibri llation) ([facility]/HCC V24, CMS/HCC V28) 09/16/2021 Overview (12/28/2023): Paroxysmal atrial fibrillation. Currently treated with flecainide and atenolol. [id number] score of 0 so currently not anticoagulated. No recent recurrences. Normal ECG. [id number] score is a 1 for female gender [...] the conduction system, thrombus related stroke or GA. She does want to proceed with the [...] Encounters Date Type Department Care Team Description 06/07/2024 12:41 PM EDT Anesthesia Event [facility] Endoscopy [address] [place] [phone] Iris Gilliam MD Kapplan, Jacob A, CRNA 06/07/2024 11:26 AM EDT - 06/07/2024 11:59 PM EDT Hospital Encounter [facility] Endoscopy [address] [place] [phone] Guido Ivey MD Kriz, Petra, MD Kapplan, Jacob A, CRNA Colon cancer screening Discharge Disposition: Home or Self Care 05/10/2024 Telephone [facility] - [address] [place] [phone] Galo Gomez MD 04/15/2024 Telephone Gastroenterology - [address] [address] Guido Ivey MD 04/08/2024 Telephone Gastroenterology - [address] [phone] Guido Ivey MD Special Procedure 04/03/2024 Telephone Gastroenterology - [address] [place] [address] Isaac Naidu MD from Last 3 Months Surgical History Surgery Date Site/Laterality Comments [place]01/2024 [place] [facility] [place] [facility] INDICATIONS:Atrial Fibrillation HYSTERECTOMY Bilateral APPENDECTOMY Right TONSILLECTOMY Bilateral COLONOSCOPY GALLBLADDER EYE SURGERY Right LAZY RIGHT EYE Medical History Medical History Date Comments Seasonal allergies Water retention Fluid retention A-fib (CMS/HCC V24, CMS/HCC V28) Family History Relation Name Status Comments Mother RECTAL CA Social History Tobacco Use Types Packs/Day Years Used Date Smoking Tobacco: Former Cigarettes Q uit: 02/20/1997 Smokeless Tobacco: Never Alcohol Use Standard Drinks/Week Comments Not Currently 0 (1 standard drink = 0.6 oz pur e alcohol) Interpersonal Safety Answer Date Record ed Physical Abuse 06/07/2024 Verbal Abuse 06/07/2024 Comments Unknown Sex and Gender Information Value Date Recorded Sex Assigned at Not on file Legal Sex Female 3:38 AM EST Gender Identity Not on file Sexual Orientation Not on file Travel History Travel Start Travel End [place] 04/29/2024 05/30/2024 Obstetrics History Last Filed Vital Signs Vital Sign Reading Time Taken Comments Blood Pressure 144/73 06/07/2024 1:22 PM EDT Pulse 57 06/07/2024 1:22 PM EDT Temperature 35.9 ??C (96.7 ??F) 06/07/2024 12:33 PM E DT Respiratory Rate 16 06/07/2024 1:22 PM EDT Oxygen Saturation 98% 06/07/2024 1:22 PM EDT Inhaled Oxygen Concentration - - Weight 98 kg (216 lb) 06/07/2024 12:33 PM EDT Height 172.7 cm (5' 8 ) 06/07/2024 12:33 PM EDT Body Mass Index 32.84 06/07/2024 12:33 PM EDT Plan of Treatment Upcoming Encounters Date Type Department Care Team (Late st Contact Info) Description 10/25/2024 7:40 AM EDT Office Visit [facility] [address] [facility] [address] [place] [phone] Marylou Pichardo VIRTUAL CLASSROOM MANAGER [address] [facility] [address] [place] [address] Health Maintenance Due Date Last Done Comments Breast Cancer Screening 1965 Hepatitis B Vaccines (1 of 3 - 19+ 3-dose series) 1985 Cervical Cancer Screening: P ap Smear 05/04/1987 Depression Screening 01/23/2022 HIV Screening 01/23/2022 Hepatitis C Screening 01/23/2022 Social Influencers of Health Screening 01/23/2022 COVID-19 Vaccine (3 - 2023-2 5 season) 2023 01/11/2021, 05/30/2020 Influenza Vaccine (Season Ended) 2024 DTaP,Tdap,and Td Vaccines (2 - Td or Tdap) 06/29/2027 06/28/2017 Colorectal Cancer Screening: Colonoscopy 06/07/2034 06/07/2024 Pneumococcal Vaccine: 50+ Years Completed 02/23/2024, 08/04/2021 Pneumococcal Vaccine: Pediatrics (0 to 5 Years) and At-Risk Patients (6 to 64 Years) Aged Out 02/23/2024, 08/04/2021 No longer eligible based on patient's age to complete this topic Zoster Vaccines Completed 04/27/2024, 02/23/2024 HIB Vaccines Aged Out No longer eligi [...] patient's age to complete this topic Meningococcal B Vaccine Aged Out No l onger eligible based on patient's age to complete this topic RSV Immunization Patients Under 20 months Aged Out No longer eligible b ased on patient's age to complete this topic Varicella Vaccines Aged Out No longer eligible based on patient's age to complete this topic Procedures Procedure Name Priority Date/Time Associated Diagnosis Comments VENIPUNCTURE CHARGE Routine 06/14/2024 8 :00 AM EDT Disease of digestive system COLONOSCOPY Routine 06/07/2024 1:00 PM EDT Colon cancer screening VENIPUNCTURE CHARGE Routine 2024 8 :14 AM EDT Disease of digestive system from Last 3 Months Results * Venipuncture charge (06/14/2024 8:00 AM EDT) Only the most recent of2 resultswithin the time period is included. Extra Tube Hold for add-ons. 06/17/2024 8:01 AM EDT [facility] Comment:Auto resulted. Blood Venous blood specimen / Unknown Venipuncture / Unknown 06/14/2024 8:00 AM EDT 06/17/2024 6:26 AM EDT us Gia Manning MNT LAB BLOOD ORDERABLES Final Res ult [facility] [address] [place] [address], * COLONOSCOPY Anesthesia - MAC; [facility] ENDOSCOPY (06/07/2024 1:00 PM EDT) Anatomical Region Laterality Modality Other 06/07/2024 12:2 5 PM EDT Impressions 06/07/2024 1:00 PM EDT - Diverticulosis in the sigmoid colon. ? - Non-bleeding internal hemorrhoids. ? - The examination was otherwise normal on direct and ? retroflexion views. ? - No specimens collected. Recommendation: ?- Discharge patient to home. ? - High fiber diet. ? - Continue present medications. ? - Repeat colonoscopy in 5-10 years for surveillance. ? - Return to GI office PRN. Narrative 06/07/2024 1:00 PM EDT [facility] GI Patient Name: Grace Everett Procedure Date: 06/07/2024 12:25 PM Date of : 1965 Age: 59 Room: ROOM 14 Gender: Female Note Status: Finalized Attending MD: Guido Ivey MD, Procedure Date No Time: 06/07/2024 Procedure: ? Colonoscopy Indications: ? Screening for colorectal malignant neoplasm Providers: ? Guido Ivey MD Referring MD: ?Guido Ivey MD Medicines: ? Monitored Anesthesia Care Complications: ? No immediate complications. Estimated Blood Loss: ? Estimated blood loss: none. Procedure: ? Pre-Anesthesia Assessment: ? - ASA Grade Assessment: II - A patient with mild ? systemic disease. ? - After reviewing the risks and benefits, the patient ? was deemed in satisfactory condition to undergo the ? procedure. ? After I obtained informed consent, the scope was ? passed under direct vision. Throughout the procedure, ? the patient's blood pressure, pulse, and oxygen ? saturations were monitored continuously.The Olympus ? Pediatric Colonoscope was introduced through the anus ? and advanced to the cecum, identified by appendiceal ? orifice and ileocecal valve. The colonoscopy was ? performed without difficulty. The patient tolerated ? the procedure well. The quality of the bowel ? preparation was good. Findings: ?Scattered small-mouthed diverticula were found in the ? sigmoid colon. ? Non-bleeding internal hemorrhoids were found during ? retroflexion. The hemorrhoids were small. ? The exam was otherwise without abnormality on direct ? and retroflexion views. Procedure Code(s): ? --- Professional --- ? G0121, Colorectal cancer screening; colonoscopy on ? individual not meeting criteria for high risk Diagnosis Code(s): ? --- Professional --- ? Z12.11, Encounter for screening for malignant neoplasm ? of colon CPT copyright 2020 [employer]. All rights reserved. The codes documented in this report are preliminary and upon outpatient coder review may be revised to meet current compliance requirements. Guido Ivey MD 06/07/2024 1:00:13 PM This report has been signed electronically.Guido Ivey MD Number of Addenda: 0 Note Initiated On: 06/07/2024 12:25 PM Scope In: Scope Out: ? Endoscopy Department at [facility] - [address] [place] [address], ? [place] [address] Procedure Note Guido Ivey MD - 06/07/2024 [facility] GI Patient Name: Grace Everett Procedure Date: 06/07/2024 12:25 PM Date of : 1965 Age: 59 Room: ROOM 14 Gender: Female Note Status: Finalized Attending MD: Guido Ivey MD, Procedure Date No Time: 06/07/2024 Procedure: Colonoscopy Indications: Screening for colorectal malignant neoplasm Providers: Guido Ivey MD Referring MD: Guido Ivey MD Medicines: Monitored Anesthesia Care Complications: No immediate complications. Estimated Blood Loss: Estimated blood loss: none. Procedure: Pre-Anesthesia Assessment: - ASA Grade Assessment: II - A patient with mild systemic disease. - After reviewing the risks and benefits, thepatient was deemed in satisfactory condition to undergo the procedure. After I obtained informed consent, the scope was passed under direct vision. Throughout theprocedure, the patient's blood pressure, pulse, and oxygen saturations were monitored continuously.The Olympus Pediatric Colonoscope was introduced through theanus and advanced to the cecum, identified byappendiceal orifice and ileocecal valve. The colonoscopy was performed without difficulty. The patient tolerated the procedure well. The quality of the bowel preparation was good. Findings: Scattered small-mouthed diverticula were found inthe sigmoid colon. Non-bleeding internal hemorrhoids were found during retroflexion. The hemorrhoids were small. The exam was otherwise without abnormality ondirect and retroflexion views. Procedure Code(s): --- Professional --- G0121, Colorectal cancer screening; colonoscopy on individual not meeting criteria for high risk Diagnosis Code(s): --- Professional --- Z12.11, Encounter for screening for malignantneoplasm of colon CPT copyright 2020 [employer]. All rights reserved. The codes documented in this report are preliminary and upon outpatient coder reviewmay be revised to meet current compliance requirements. Guido Ivey MD 06/07/2024 1:00:13 PM This report has been signed electronically.Guido Ivey MD Number of Addenda: 0 Note Initiated On: 06/07/2024 12:25 PM Scope In: Scope Out: Endoscopy Department at [facility] - [address] [place] [phone] IMPRESSION: - Diverticulosis in the sigmoid colon. - Non-bleeding internal hemorrhoids. - The examination was otherwise normal on directand retroflexion views. - No specimens collected. Recommendation: - Discharge patient to home. - High fiber diet. - Continue present medications. - Repeat colonoscopy in 5-10 years forsurveillance. - Return to GI office PRN. us Guido Ivey MD GI~PROCEDURE ORDERABLES Final Result from Last 3 Months Insurance [facility] Care Teams Air Brake Worker Relationship Specialty Start Date End Date Hailey Guerrero MD 2 [facility] , [address] Physician Associ D/B/A: [facility] [place], [place] PCP - General Internal Medicine 10/13/20
--- OUTSIDE RECORDS SUMMARY | 2024-06-25 15:43 | XMS_ITS | Patient Health Record ---
[facility] Address [address] [place] [address] Care Team Providers Care Reconciliation Specialist Name Role Phone Antonio Ponce Primary Care Provider Unavailab Bob Jimenez Unavailable [phone] Allergies Allergen (clinical drug ingredient) Drug/Non Drug [...] (substance) Sulfa Antibiotics anaphylaxis Drug Allergy Active Reason For Referral Diagnosis 1 Tinea unguium (B35.1 ) Diagnosis 2 Pain in right toe(s) (M79.674) Referring Provider First Name Antonio Referring Provider Last Name Kris Referred [facility] Referred Provider Ashley Nguyen Referred Address [address] [facility],[place], [place],[address], Referred Provider Specialty Podiatry Referral Priority Routine Diagnosis 1 Hallux valgus (acqui red), right foot (M20.11) Diagnosis 2 Tinea unguium (B35.1 ) Diagnosis 3 Pain in right toe(s) (M79.674) Diagnosis 4 Bursitis of right fo ot (M77.51) Diagnosis 5 Pain in right ankle and joints of right foot (M25.571) Diagnosis 6 Pain in right foot ( M79.671) Diagnosis 7 Ingrown nail (L60.0) Referring Provider First Name Antonio Referring Provider Last Name Kris [facility] Referred Provider Bob Hall Referred Address [address] [place] [phone],[place] Referred Provider Specialty Podiatry Referral Priority Routine Medications Medication SIG (Take, Route, Frequency, Duration) Notes Start Date End Date Status Fish Oil 1000 MG Orally Not -Taking Atenolol 10 mg Not-T aking Loratadine 10 MG Orally Not -Taking hydroCHLOROthiazide 50 MG 1 tablet in th e morning Orally Once a day Active Vitamin D 2000 UNIT Orally Active ZyrTEC Allergy Activ e Social History Tobacco Use: Social History Observation [...] Status Risk Notes Problem Acquired hallux valgus (98228370) Hallux valgus (acquired), right foot (M20.11) Active confirmed Vital Signs Blood pressure diastolic 80 mm Hg 2024 Height 5 ft 8 in in 2024 Blood pressure systolic 120 mm Hg 2024 Weight 218 lbs 2024 BMI 33.14 kg/m2 2024 Procedures Procedure Date Ordered Date Performed Result Body Sit e 80109-Kgjgumek Plate 2024 N/A Encounters Encounter Location Date Provider [facility] [address] [place] [address] 2024 Bob Hall Ingrown nail L60.0 ; Pain in right foot M79.671 ; Pain in right ankle and joints of right foot M25.571 ; Bursitis of right foot M77.51 and Hallux valgus (acquired), right foot M20.11 Assessments Encounter Date Diagnosis (ICD Code) Assessment Notes Treatment Notes Treatment Clinical Notes Section Notes 2024 Ingrown nail (ICD-10 - L60.0) 2024 Pain in right ankle and joints of right foot (ICD-10 - M25.571) 2024 Pain in right foot (ICD-10 - M79.671) 2024 Bursitis of right foot (ICD-10 - M77.51) 2024 Hallux valgus (acquired), right foot (ICD-10 - M20.11) Plan Of Treatment Pending Test Test Name Order Date 61876-Lplgehpm Plate 2024 Insurance Providers Payer Name Payer Address Payer Phone Subscriber Number Group Number Insured Name Patient Relationship to Insured Coverage Start Date Coverage End Date [facility] [address] [place] [address] [phone] [id number] Grace Everett Self - patient is the insured Medical (General) History Medical History History ICD Code Chicken pox sinusitis A fib - previous procedure Surgical History Surgery Date(Month/Year) hysterectomy 2010 tonsilectomy 1973 lazy eye age 6 apendectomy 1994 gall bladder 1998
== END 2024-06-25 15:00 | disposition home or self-care (01) ==
LOC: HO.HMCH 14:29
PROVIDERS: PCP Physician Assistant; Visit Provider Physician Assistant
DX: I48.91 Unspecified atrial fibrillation (principal); E66.811 Obesity, class 1; Z68.32 Body mass index [BMI] 32.0-32.9, adult

== ENCOUNTER → 2024-06-25 14:23 | Outpatient (BNVA) | payer BC, SELFPAY | PROVIDERS: PCP Physician Assistant; Visit Provider Physician Assistant ==

== ENCOUNTER 2024-07-22 11:56 | Outpatient (REF) | payer BC, SELFPAY ==
--- OUTSIDE RECORDS SUMMARY | 2024-07-22 13:07 | XMS_ITS | Clinical Summary ---
Author Organization [address] [place] [address] Address [address] [place] [address] Phone Care Team Providers Care Box Inspector Name Role Phone Hailey Guerrero MD Primary Care Provider [phone] Allergies Active Allergy Reactions Criticality Noted Date [...] mouth 1 (one) time each day. Active hydroCHLOROthiaz mery (HYDRODIURIL) 50 mg tablet Take 1 tablet [...] 5 hours before your procedure. 4000 mL Active MAGNESIUM GLYCINATE ORAL Take by mouth. [...] 30.0-34.9) 10/21/2021 PAF (paroxysmal atrial fibri llation) ([facility] V24, [facility] V28) 09/16/2021 Overview (12/28/2023): Paroxysmal atrial fibrillation. Currently treated with flecainide and atenolol. [id number] score of 0 so currently not anticoagulated. No recent recurrences. Normal ECG. [id number]-[id number] score is a 1 for female gender [...] the conduction system, thrombus related stroke or [place]. She does want to proceed with the [...] Description 06/07/2024 12:41 PM EDT Anesthesia Event [facility] Endoscopy [address] [place] [phone] Iris Gilliam MD Kapplan, Jacob A, CRNA 06/07/2024 11:26 AM EDT - 06/07/2024 11:59 PM EDT Hospital Encounter [facility] Endoscopy [address] [place] [phone] Guido Ivey MD Kriz, Petra, MD Kapplan, Jacob A, CRNA Colon cancer screening Discharge Disposition: Home or Self Care 05/10/2024 Telephone [facility] - [facility] [address] [facility] [address] [place] [address] Galo Gomez MD from Last 3 Months Surgical History Surgery Date Site/Laterality Comments ABLATION DONE ON 01/01/2024 AT [facility] W M INDICATIONS:Atrial Fibrillation HYSTERECTOMY Bilateral APPENDECTOMY Right TONSILLECTOMY [...] on file Sexual Orientation Not on file Obstetrics History Last Filed [...] Description 10/25/2024 7:40 AM EDT Office Visit [facility] - [facility] [address] [facility] 154 [place] [phone] Marylou Pichardo NP 300 [facility] [address] [place] [address] Health Maintenance Due Date Last [...] Hold for add-ons. 06/17/2024 8:01 AM EDT [facility] Comment:Auto resulted. Blood Venous blood specimen / Unknown Venipuncture / Unknown 06/14/2024 8:00 AM EDT 06/17/2024 6:26 AM EDT us Gia Manning MNT LAB BLOOD ORDERABLES Final Res ult Performing Organization Address [facility]/State/ZIP Co de Phone Number [facility] LAB [address] [place] [address], * COLONOSCOPY Anesthesia - MAC; [facility] ENDOSCOPY (06/07/2024 1:00 PM EDT) [...] office PRN. Narrative 06/07/2024 1:00 PM EDT [facility] GI Patient Name: Grace Everett Procedure Date: [...] malignant neoplasm ? of colon CPT copyright 2021 [employer]. All rights reserved. The codes documented in this report are preliminary and upon district branch manager review may be revised to meet current compliance requirements. Guido Ivey MD 06/07/2024 1:00:13 PM This report has been signed electronically.Guido Ivey MD Number of Addenda: 0 Note Initiated On: 06/07/2024 12:25 PM Scope In: Scope Out: ? Endoscopy Department at [facility] - [address] [place] [address], ? [place] [address] Procedure Note Guido Ivey MD - 06/07/2024 [facility] GI Patient Name: Grace Everett Procedure Date: [...] for malignantneoplasm of colon CPT copyright 2020 [employer]. All rights reserved. The codes documented in this report are preliminary and upon district branch manager reviewmay be revised to meet current compliance requirements. Guido Ivey MD 06/07/2024 1:00:13 PM This report has been signed electronically.Guido Ivey MD Number of Addenda: 0 Note Initiated On: 06/07/2024 12:25 PM Scope In: Scope Out: Endoscopy Department at [facility] - [address] [place] [phone] IMPRESSION: - Diverticulosis in the sigmoid colon. - Non-bleeding internal hemorrhoids. - The examination was otherwise normal on directand retroflexion views. - No specimens collected. Recommendation: - Discharge patient to home. - High fiber diet. - Continue present medications. - Repeat colonoscopy in 5-10 years forsurveillance. - Return to GI office PRN. Guido Ivey MD GI~PROCEDURE ORDERABLES Final Result from Last 3 Months Insurance [facility] Care Teams Box Inspector Relationship Specialty Start Date End Date Hailey Guerrero MD [address] [place] [address] , [facility] [address] [facility] Physician Associ D/B/A: [facility] [place], [place] PCP - General Internal Medicine 10/13/20
[2024-07-22 13:29] LABS: Appearance Urine Clear; Color Urine Yellow; Glucose Urine UA Negative (Negative); Leukocyte Esterase Urine Negative (Negative); Nitrite Urine Negative (Negative); Urine Blood Negative (Negative); Urine Ketones Negative (Negative); Urine Protein Negative (Neg-Trace)
== END 2024-07-22 11:57 | disposition home or self-care (01) ==
LOC: HO.LAB 11:56
PROVIDERS: PCP Physician Assistant; Visit Provider Physician Assistant
DX: R30.0 Dysuria (principal)
CPT/HCPCS: 81003

== ENCOUNTER 2024-07-26 08:26 | Outpatient (REF) | payer BC, SELFPAY ==
--- NOTE | ~2024-07-26 | MM_ITS ---
EXAMINATION: MM SCREENING DIGITAL BREAST TOMOSYNTHESIS, BILATERAL CLINICAL INFORMATION: Screening. Asymptomatic. COMPARISON: Mammography: Comparison is made with available priors TECHNIQUE: Digital breast mammography with tomosynthesis is performed in both the craniocaudal and mediolateral oblique views along with computer-aided detection (CAD). FINDINGS: There are scattered areas of fibroglandular density (ACR BI-RADS breast composition Category b). There are no significant masses, abnormal calcifications, or other abnormalities. MM/MM tomosynthesis screening BI IMPRESSION: No mammographic evidence of malignancy. ASSESSMENT: BI-RADS BI-RADS 1 - Negative RECOMMENDATION: Routine annual mammography screening. 1 year F/U This examination should not preclude the clinical evaluation of a suspicious palpable abnormality. This patient's information was entered into a reminder system with a target due date for their next mammogram. Electronically signed by: Amy Jose DO 07/30/2024 05:44 PM EDT
--- OUTSIDE RECORDS SUMMARY | 2024-07-26 08:34 | XMS_ITS | Clinical Summary ---
Author Organization [address] [place] [address] Address [address] [place] [address] Phone Care Team Providers Care Security Site Supervisor Name Role Phone Hailey Guerrero MD Primary Care Provider Allergies Active Allergy Reactions Criticality Noted Date [...] 30.0-34.9) 10/21/2021 PAF (paroxysmal atrial fibri llation) ([facility] V24, [facility] V28) 09/16/2021 Overview (12/28/2023): Paroxysmal atrial fibrillation. Currently treated with flecainide and atenolol. [id number]-UZYp score of 0 so currently not anticoagulated. No recent recurrences. Normal ECG. FBJ3RT5-BENz score is a 1 for female gender [...] the conduction system, thrombus related stroke or [place]. She does want to proceed with the [...] Description 06/07/2024 12:41 PM EDT Anesthesia Event [facility] Endoscopy [address] [place] [phone] Iris Gilliam MD Kapplan, Jacob A, CRNA 06/07/2024 11:26 AM EDT - 06/07/2024 11:59 PM EDT Hospital Encounter [facility] Endoscopy [address] [place] [phone] Guido Ivey MD Kriz, Petra, MD Kapplan, Jacob A, CRNA Colon cancer screening Discharge Disposition: Home or Self Care 05/10/2024 Telephone [facility] - [facility] [address] [facility] [address] [phone] Galo Gomez MD from Last 3 Months Surgical History Surgery Date Site/Laterality Comments ABLATION DONE ON 01/01/2024 AT [facility] W M INDICATIONS:Atrial Fibrillation HYSTERECTOMY Bilateral APPENDECTOMY [...] Description 10/25/2024 7:40 AM EDT Office Visit [facility] - [facility] 154 [address] [facility] 154 [phone] Marylou Pichardo NP 300 [facility] [address] [place] [address] Health Maintenance Due Date Last [...] Hold for add-ons. 06/17/2024 8:01 AM EDT [facility] HOSPITAL LAB Comment:Auto resulted. Blood Venous blood specimen / Unknown Venipuncture / Unknown 06/14/2024 8:00 AM EDT 06/17/2024 6:26 AM EDT us Gia Manning MNT LAB BLOOD ORDERABLES Final Res ult Performing Organization Address [facility]/State/ZIP Co de Phone Number [facility] LAB [address] [place] [address], * COLONOSCOPY Anesthesia - MAC; [facility] ENDOSCOPY (06/07/2024 1:00 PM EDT) [...] office PRN. Narrative 06/07/2024 1:00 PM EDT [facility] GI Patient Name: Grace Everett Procedure [...] neoplasm ? of colon CPT copyright 2021 [employer]. All rights reserved. The codes documented in this report are preliminary and upon backup administrative coordinator review may be revised to meet current compliance requirements. Guido Ivey MD 06/07/2024 1:00:13 PM This report has been signed electronically.Guido Ivey MD Number of Addenda: 0 Note Initiated On: 06/07/2024 12:25 PM Scope In: Scope Out: ? Endoscopy Department at [facility] - [address] [place] [address], ? [phone] Procedure Note Guido Ivey MD - 06/07/2024 [facility] GI Patient Name: Grace Everett Procedure [...] for malignantneoplasm of colon CPT copyright 2020 [employer]. All rights reserved. The codes documented in this report are preliminary and upon backup administrative coordinator reviewmay be revised to meet current compliance requirements. Guido Ivey MD 06/07/2024 1:00:13 PM This report has been signed electronically.Guido Ivey MD Number of Addenda: 0 Note Initiated On: 06/07/2024 12:25 PM Scope In: Scope Out: Endoscopy Department at [facility] - [address] [place] [phone] IMPRESSION: - Diverticulosis in the sigmoid colon. [...] Final Result from Last 3 Months Insurance [facility] Care Teams Security Site Supervisor Relationship Specialty Start Date End Date Hailey Guerrero MD [address] [place] [address] , [facility] 101 [facility] D/B/A: [facility] [place], [place] PCP - General Internal Medicine 10/13/20
[2024-07-26 12:31] LABS: Creatinine, mg/dL 73.13; Creatinine, mg/dL 73.47; Phosphorus mg/dL 48.3 mg/dL; Protein mg/dL < 7 mg/dL; Uric Acid, mg/dL 20.6 mg/dL
[2024-07-26 13:29] LABS: Creatinine, 24Hr Urine 1.5 G/Day (1.0-2.0); Protein 24 Hr Urine < 144 mg/Day (<150); Total Volume 24 Hour Urine 2050 mL
[2024-07-26 13:30] LABS: Uric Acid, 24 Hr Urine 422.3 mg/Day (250-750)
[2024-07-28 17:18] LABS: Calcium, 24 Hr Urine 223 mg/24 h; Calcium/Creatinine Ratio 145 mg/g creat (30-275); Creatinine 24Hr Urine 1.54 g/24 h (0.50-2.15)
[2024-08-01 04:58] LABS: Creatinine, 24H Ur 1.53 g/24 h (0.50-2.15); Magnesium, 24H Urine 177 mg/24 h (18-130); Magnesium, Urine 24H/g Creat 115 mg/g creat (30-135); Total Volume 2050 mL
[2024-08-01 08:48] LABS: 24hr Urine Total Volume 2050 mL; Citric Acid, 24hr Urine 638 mg/24 h (100-1300); Citric Acid/Creat Ratio 24U 404 mg/g creat (180-1070); Creatinine, 24U 1.58 g/24 h (0.50-2.15)
[2024-08-03 04:58] LABS: 24hr Urine Total Volume 2050 mL; Oxalic Acid 24 Urine 24.2 mg/24 h (3.6-38.0)
[2024-08-03 14:59] LABS: Cortisol Free, 24 Hr Urine 21.4 mcg/24 h (4.0-50.0); Creatinine, 24 Hr Urine 1.56 g/24 h (0.50-2.15); Total Volume, 24 Hr Urine 2050 mL
== END 2024-07-26 08:27 | disposition home or self-care (01) ==
LOC: HO.MAMMO 08:26
PROVIDERS: PCP Physician Assistant; Visit Provider Physician Assistant
DX: Z12.31 Encounter for screening mammogram for malignant neoplasm of breast (principal); E66.811 Obesity, class 1
CPT/HCPCS: 77063; 77067; 82340; 82507; 82530; 83735; 83945; 84105; 84156; 84560

== ENCOUNTER → 2024-07-26 08:30 | Outpatient (BNV) | payer BC, SELFPAY | PROVIDERS: PCP Physician Assistant; Visit Provider Internal Medicine | DX: Z12.31 Encounter for screening mammogram for malignant neoplasm of breast (principal) | CPT/HCPCS: 77063; 77067 ==

== ENCOUNTER 2024-08-19 06:33 | Outpatient (REF) | payer BC, SELFPAY ==
--- OUTSIDE RECORDS SUMMARY | 2024-08-19 06:36 | XMS_ITS | Clinical Summary ---
Author Organization [address] [place] [address] Address [address] [place] [address] Phone Care Team Providers Care Avionics System Engineer Name Role Phone Hailey Guerrero MD Primary Care Provider [phone] Allergies Active Allergy Reactions Criticality Noted Date [...] 30.0-34.9) 10/21/2021 PAF (paroxysmal atrial fibri llation) ([facility] V24, [facility] V28) 09/16/2021 Overview (12/28/2023): Paroxysmal atrial fibrillation. Currently treated with flecainide and atenolol. VXW4CN2-PDWm score of 0 so currently not anticoagulated. No recent recurrences. Normal ECG. MJG2PT7-HWCs score is a 1 for female gender [...] the conduction system, thrombus related stroke or [place]. She does want to proceed with the [...] Description 06/07/2024 12:41 PM EDT Anesthesia Event [facility] Endoscopy [address] [place] [phone] Iris Gilliam MD Kapplan, Jacob A, CRNA 06/07/2024 11:26 AM EDT - 06/07/2024 11:59 PM EDT Hospital Encounter [facility] Endoscopy [address] [place] [address] Guido Ivey MD Kriz, Petra, MD Kapplan, Jacob A, CRNA Colon cancer screening Discharge Disposition: Home or Self Care from Last 3 Months Surgical History Surgery Date Site/Laterality Comments ABLATION DONE ON 01/01/2024 AT [facility] INDICATIONS:Atrial Fibrillation HYSTERECTOMY Bilateral APPENDECTOMY Right TONSILLECTOMY [...] 57 06/07/2024 1:22 PM EDT Temperature 35.9 C (96.7 F) 06/07/2024 12:33 PM EDT Respiratory Rate 16 06/07/2024 1:22 PM EDT [...] Description 10/25/2024 7:40 AM EDT Office Visit [facility] - [address] [facility] [address] [place] [phone] Marylou Pichardo NP [address] [place] [phone] Health Maintenance Due Date Last Done Comments [...] 06/07/2024 1:00 PM EDT Colon cancer screening from Last 3 Months Results * Venipuncture charge (06/14/2024 8:00 AM EDT) Extra Tube Hold for add-ons. 06/17/2024 8:01 AM EDT [facility] Comment:Auto resulted. Blood Venous blood specimen / Unknown Venipuncture / Unknown 06/14/2024 8:00 AM EDT 06/17/2024 6:26 AM EDT us Gia Manning MNT LAB BLOOD ORDERABLES Final Res ult [facility] [address] [place] [address], * COLONOSCOPY Anesthesia - [facility]; [facility] ENDOSCOPY (06/07/2024 1:00 PM EDT) Anatomical Region Laterality Modality Other 06/07/2024 12:2 5 PM EDT Impressions 06/07/2024 1:00 PM EDT - Diverticulosis in the sigmoid colon. - Non-bleeding internal hemorrhoids. - The examination was otherwise normal on direct and retroflexion views. - No specimens collected. Recommendation: - Discharge patient to home. - High fiber diet. - Continue present medications. - Repeat colonoscopy in 5-10 years for surveillance. - Return to GI office PRN. Narrative 06/07/2024 1:00 PM EDT [facility] GI Patient Name: Grace Everett Procedure Date: [...] reviewing the risks and benefits, the patient was deemed in satisfactory condition to undergo the procedure. After I obtained informed consent, the scope was passed under direct vision. Throughout the procedure, the patient's blood pressure, pulse, and oxygen saturations were monitored continuously.The Olympus Pediatric Colonoscope was introduced through the anus and advanced to the cecum, identified by appendiceal orifice and ileocecal valve. The colonoscopy was performed without difficulty. The patient tolerated the procedure well. The quality of the bowel preparation was good. Findings: Scattered small-mouthed diverticula were found in the sigmoid colon. Non-bleeding internal hemorrhoids were found during retroflexion. The hemorrhoids were small. The exam was otherwise without abnormality on direct and retroflexion views. Procedure Code(s): --- Professional --- G0121, Colorectal cancer screening; colonoscopy on individual not meeting criteria for high risk Diagnosis Code(s): --- Professional --- Z12.11, Encounter for screening for malignant neoplasm of colon CPT copyright 2020 [employer]. All rights reserved. The codes documented in this report are preliminary and upon pallet assembler review may be revised to meet current compliance requirements. Guido Ivey MD 06/07/2024 1:00:13 PM This report has been signed electronically.Guido Ivey MD Number of Addenda: 0 Note Initiated On: 06/07/2024 12:25 PM Scope In: Scope Out: Endoscopy Department at [facility] - [address] [place] [phone] Procedure Note Guido Ivey MD - 06/07/2024 [facility] GI Patient Name: Grace Everett Procedure Date: [...] for malignantneoplasm of colon CPT copyright 2020 [employer]. All rights reserved. The codes documented in this report are preliminary and upon pallet assembler reviewmay be revised to meet current compliance requirements. Guido Ivey MD 06/07/2024 1:00:13 PM This report has been signed electronically.Guido Ivey MD Number of Addenda: 0 Note Initiated On: 06/07/2024 12:25 PM Scope In: Scope Out: Endoscopy Department at [facility] - [address] [place] [phone] IMPRESSION: - Diverticulosis in the sigmoid colon. [...] Final Result from Last 3 Months Insurance [facility] Care Teams Avionics System Engineer Relationship Specialty Start Date End Date Hailey Guerrero MD [address] [place] [address] , [address] [facility] Physician Associ D/B/A: [facility] EREN Holley PCP - General Internal Medicine 10/13/20
[2024-08-19 07:15] LABS: Ammonia 22 umol/L (13-55)
[2024-08-19 09:24] LABS: Osmolality Urine 737 mosm/kg (373-1093)
== END 2024-08-19 06:34 | disposition home or self-care (01) ==
LOC: HO.LAB 06:33
PROVIDERS: PCP Physician Assistant; Visit Provider Physician Assistant
DX: E66.811 Obesity, class 1 (principal); E55.9 Vitamin D deficiency, unspecified
CPT/HCPCS: 36415; 82140; 83935

== ENCOUNTER 2024-11-15 14:49 | Outpatient (AMB) | payer OTHER, SELFPAY ==
--- OUTSIDE RECORDS SUMMARY | 2024-07-12 05:30 | XMS_ITS ---
Author Organization [facility] Address [address] [place] [address] Care Team Providers Care Clothes Drier Repairer Name Role Phone Antonio Ponce Primary Care Provider Unavailab Bob Jimenez Unavailable [phone] Ashley Nguyen Unavailable [phone] REASON FOR VISIT too soon Encounters Encounter Location Date Provider Diagnosis [facility] [address] [place] [address] 07/12/2024 Ashley Nguyen Plan Of Treatment No Information Progress Notes * Grace EVERETTDOB: 7 (59 yo F)Acc No.[id number]:07/12/2024 Progress Notes Patient: Grace BONILLA Provider: Berta Nguyen DPM :1965 A ge:59 Y S ex:Female Date:07/12/2024 Address:[address] [place] [address] [place] Pcp:Antonio Ponce Subjective: * Chief Complaints: * [...] 0 07/12/2024 Generated for Monty reid/Jennifer/Denaitting on: 0 11/15/2024 03:37 PM EDT
[2024-11-15 14:57] VITALS: BP 136/74; PULSE 72; RESP 18; TEMP 36.3; O2SAT 97; BMI 30.9
--- NOTE | 2024-11-15 14:57 | MHC.PC.OV ---
Vital Signs 11/15/24 14:57 Height 5 ft 8 in Weight 203 lb BMI 30.9 BP 136/74 Blood Pressure Location Lt brachial Position Sitting Respiration 18 Pulse 72 Pulse Source Pulse Oximeter Temp 97.3 F Temp Source Temporal Artery Scan Pulse Oximetry (%) 97 Oxygen Delivery Method Room Air Intake Visit Reasons: Plantar fasciitis both feet ( Rt worse) Emt/Dispatcher Required: No Accompanied by: Self / Same As Patient Allergies Sulfa (Sulfonamide Antibiotics) (SULFA (SULFONAMIDE ANTIBIOTICS)) Allergy (Severe, Verified 11/15/24 15:02) HIVES,DIFFICULTY BREATHING, rash sulfamethoxazole (From Bactrim) Allergy (Unknown, Verified 11/15/24 15:02) unknown trimethoprim (From Bactrim) Allergy (Unknown, Verified 11/15/24 15:02) unknown bupropion (From Wellbutrin) Adverse Reaction (Intermediate, Verified 11/15/24 15:02) arthralgia Medication List - Last Reconciled 11/15/24 by Brittni Barber MD cetirizine (Zyrtec) 10 mg PO DAILY cholecalciferol (vitamin D3) 25 mcg PO DAILY coenzyme Q10 (Co Q-10) 200 mg PO DAILY flavoring agent (bulk) ea miscellaneous fluticasone propionate 50 mcg/actuation (Flonase Allergy Relief) 1 spray intranasal DAILY hydrochlorothiazide 50 mg PO DAILY 90 days Held on 06/25/24. Instructions: Doctor's Order loratadine-pseudoephedrine 10-240 mg ER (Claritin-D 24 Hour) 1 tab PO DAILY PRN 90 days magnesium glycinate mg PO multivitamin 1 tab PO DAILY omega 7-qak-nkd-fish oil 900 mg-360 mg- 455 mg-1,000 mg (Fish Oil) caps PO omega-3 fatty acids (Fish Oil Concentrate) 1,000 mg PO DAILY prasterone (DHEA) (DHEA) 25 mg PO DAILY tirzepatide (weight loss) (Zepbound) 2.5 mg (0.5 mL) subcut QWEEK 4 weeks trazodone 100 mg PO BEDTIME PRN 90 days Tobacco use date assessed: 11/15/24 Dental Screening Dental Screen Date: 11/15/24 Did you have a dental visit in the last 12 months?: Yes Did you have a dental problem in the last 6 months where you did not have access to dental care?: No Was dental information given to patient?: Patient has dentist HPI HPI Comments History of Present Illness Details The patient is a 59-year-old female presenting with plantar fasciitis. She reports a history of plantar fasciitis, previously managed with orthotics and physical therapy, including ice application and stretching exercises, but without relief. The condition has worsened, causing significant pain in the right leg, described as a constant charley horse in the calf, and extending to the hips, leading to sleep disturbances. The patient has explored online resources and considered a cortisone injection as a potential treatment option. She has not received any prior injections for this condition but has had previous experiences with cortisone shots for bursitis. The patient expresses frustration with the lack of relief from current interventions and the impact on her daily life. [facility] Medical History Hypovitaminosis D Immunization due Immunization history incomplete Palpitations Obesity Allergies Surgical History History of cardiac ablation for atrial fibrillation History of eye surgery History of laparoscopic cholecystectomy History of appendectomy History of tonsillectomy History of hysterectomy Family History Father COPD (chronic obstructive pulmonary disease) CVD (cardiovascular disease) Pulmonary fibrosis Mother Stroke Rectal cancer Hypertension Afib Son No problems noted. 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 Cognitive needs: No Hearing needs: No Vision needs: Yes Questionnaire Thrive Questionnaire Date Thrive assessed: 03/25/24 I am a: Patient What is your living situation today?: I have a steady place to live Within the past 12 months, did the food you bought not last and you didn't have the money to get more?: Never true Within the past 12 months, did you worry whether your food would run out before you got money to buy more?: Never true Do you have trouble paying for medicines?: No Do you have trouble getting transportation to medical appointments?: No Do you have trouble paying your heating and electricity bill?: No Do you have trouble taking care of your child, family member or friend?: No Do you have trouble with day-to-day activities such as bathing, preparing meals, shopping, managing finances, etc.?: No Are you currently unemployed and looking for a job?: No Are you interested in more education?: No Please select the resources that you would like help with: None Currently or been in a relationship where the following occur: No concerns reported THRIVE Score: 0 CATERINA-7 AMB Questionnaire CATERINA-7 Date CATERINA - 7 assessed: 03/28/24 Source: Developed by Drs. Hipolito Boucher, Alesia Saldaña, Jerald Starkey and colleagues, with an educational daniela from [employer]. Review of Systems Const Details: Positives besides what was mentioned in HPI are in BOLD Constitutional: No Weight Change, No Fever, No Chills, No Night Sweats, No Fatigue, No Malaise ENT/Mouth: No Hearing Changes, No Ear Pain, No Nasal Congestion, No Sinus Pain, No Hoarseness, No sore throat, No Rhinorrhea, No Swallowing Difficulty Eyes: No Eye Pain, No Swelling, No Redness, No Foreign Body, No Discharge, No Vision Changes Cardiovascular: No Chest Pain, No SOB, No PND, No Dyspnea on Exertion, No Orthopnea, No Claudication, No Edema, No Palpitations Respiratory: No Cough, No Sputum, No Wheezing, No Smoke Exposure, No Dyspnea Gastrointestinal: No Nausea, No Vomiting, No Diarrhea, No Constipation, No Pain, No Heartburn, No Anorexia, No Dysphagia, No Hematochezia, No Melena, No Flatulence, No Jaundice Genitourinary: No Dysmenorrhea, No DUB, No Dyspareunia, No Dysuria, No Urinary Frequency, No Hematuria, No Urinary Incontinence, No Urgency, No Flank Pain, No Urinary Flow Changes, No Hesitancy Musculoskeletal: No Arthralgias, No Myalgias, No Joint Swelling, No Joint Stiffness, No Back Pain, No Neck Pain, No Injury History Skin: No Skin Lesions, No Pruritis, No Hair Changes, No Breast/Skin Changes, No Nipple Discharge Neuro: No Weakness, No Numbness, No Paresthesias, No Loss of Consciousness, No Syncope, No Dizziness, No Headache, No Coordination Changes, No Recent Falls Psych: No Anxiety/Panic, No Depression, No Insomnia, No Personality Changes, No Delusions, No Rumination, No SI/HI/AH/VH, No Social Issues, No Memory Changes, No Violence/Abuse Hx., No Eating Concerns Heme/Lymph: No Bruising, No Bleeding, No Transfusions History, No Lymphadenopathy Endocrine: No Polyuria, No Polydipsia, No Temperature Intolerance Physical exam (Primary Care) Vital Signs: Last Vital Signs Temp 97.3 F 11/15/24 14:57 Pulse 72 11/15/24 14:57 Resp 18 11/15/24 14:57 BP 136/74 11/15/24 14:57 Pulse Ox 97 11/15/24 14:57 Oxygen Delivery Method Room Air 11/15/24 14:57 BMI result Body Mass Index 30.9 Tobacco/Smoking Status: Tobacco use Status Tobacco use date assessed 11/15/24 11/15/24 15:09 Patient Tobacco Use Status Former Tobacco user 11/15/24 15:09 Tobacco use type Cigarette 11/15/24 15:09 e-Cigarette/Vaping Use Never Used 11/15/24 15:09 Thrive Assessment: Date of Thrive Assessment Date Thrive assessed 03/25/24 11/15/24 15:09 Currently or been in a relationship where the following occur: No concerns reported Const Other: Pertinent findings are in BOLD GENERAL APPEARANCE NAD, activity normal for age, well developed/ well nourished, no cyanosis, pallor, or diaphoresis. EYES lids/conjunctiva normal. EARS/NOSE/THROAT Mucous membranes moist, nares normal, lips/teeth normal uvula midline without oral pharyngeal erythema, exudate or swelling TMs normal bilaterally. No lymphangitis/lymphedema. HEAD/NECK normocephalic atraumatic, no facial trauma, neck is supple. RESPIRATORY respiratory effort normal, speaks in full sentences, no tripod position, no accessory muscle use. Lungs clear to auscultation without rhonchi, wheezes, rales CARDIAC Regular rate and rhythm, no edema. ABDOMINAL Soft, ND/NT. No evidence of fluid wave. No pulsatile masses on exam, rebound tenderness, Escobedo sign or pain over Mcburney's point. MUSCLES/EXTREMITIES No abnormal range of motion, no swelling. SKIN Warm, pink and dry. No rashes, dermatoses, petechiae or lesions. NEUROLOGICAL Speech is clear and appropriate. Normal level of consciousness. Gait and coordination are normal. 5/5 strength in all extremities. PSYCH Normal mood and affect. Judgement/competence is appropriate Coding Level of Care Code Est Pt Level 3 (29374) Diagnoses Plantar fasciitis M72.2 Time Spent (min) 20 Assessment & Plan Assessment & Plan (1) Plantar fasciitis: Code(s): M72.2 - Plantar fascial fibromatosis Category: Medical Plan: - Referral to podiatry for further evaluation and management, including consideration of a cortisone injection. - Discussion of potential benefits of cortisone injection for symptom relief. - Recommendation to continue current conservative measures such as orthotics, ice application, and stretching exercises. Plan During the visit, we discussed the patient's ongoing plantar fasciitis and the lack of relief from current conservative treatments. I explained the potential benefits of a cortisone injection and the need for a referral to podiatry for further evaluation. We also talked about the importance of continuing current conservative measures and the possibility of seeing a specialist for more targeted treatment. Orders: Referrals Podiatry Referral M72.2 - Plantar fascial fibromatosis
--- OUTSIDE RECORDS SUMMARY | 2024-11-15 15:37 | XMS_ITS | Clinical Summary ---
Author Organization [facility] Address [address] [place] [phone] Phone Care Team Providers Care Lap Cutter Truer Operator Name Role Phone Pcp, Unknown Primary Care Provider Unavailabl e Social History Tobacco Use Types Packs/Day Years Used Date Smoking Tobacco: Never Assessed Comments Unknown Sex and Gender Information Value Date Recorded Sex Assigned at Not on file Legal Sex Female 8:24 AM EDT Gender Identity Not on file Sexual Orientation Not on file Plan of Treatment Health Maintenance Due Date Last Done Comments LIPID PANEL 1966 DEPRESSION SCREENING 1978 HEPATITIS C SCREENING 1984 HIV ONE-TIME SCREENING (18-6 5 YEARS) 1984 PAP SMEAR 05/04/1987 MAMMOGRAM 2006 ZOSTER VACCINES (1 of 2) 2016 PNEUMOCOCCAL VACCINES (50+ years) (2 of 2 - PCV) 08/04/2022 08/04/2021 COVID-19 VACCINE (2023-2 5 season) 2023 01/11/2021, 05/30/2020 Adult Td,Tdap Booster 06/29/2027 06/28/2017 COLORECTAL CANCER SCREENING Completed HEPATITIS A VACCINES Aged Out No long er eligible based on patient's age to complete this topic HIB VACCINES Aged Out No longer eligi ble based on patient's age to complete this topic MENINGOCOCCAL VACCINES (ACWY) Aged Out No longer eligible based on patient's age to complete this topic MENINGOCOCCAL VACCINES (B) Aged Out N o longer eligible based on patient's age to complete this topic Medical Devices Not on file Insurance HEALTH SAF[employer]Y NET PARTIAL HEALTH SAFETY NET PARTIAL HEALTH SAFETY NET PARTIAL HEALTH SAFETY NET PARTIAL SAFETY NET PARTIAL SAFETY NET PARTIAL Care Teams Lap Cutter Truer Operator Relationship Specialty Start Date End Date Pcp, Unknown PCP - General 07/20/23 Additional Source Comments The information contained in this document represents components of the legal health record. It is not the complete legal health record.[facility]
--- OUTSIDE RECORDS SUMMARY | 2024-11-15 15:37 | XMS_ITS | Clinical Summary ---
Author Organization [address] [place] [address] Address [address] [place] [address] Phone Care Team Providers Care Billboard Installer Name Role Phone Hailey Guerrero MD Primary Care Provider [phone] Allergies Active Allergy Reactions Criticality Noted Date [...] 30.0-34.9) 10/21/2021 PAF (paroxysmal atrial fibri llation) ([facility] V24, [facility] V28) 09/16/2021 Overview (12/28/2023): Paroxysmal atrial fibrillation. Currently treated with flecainide and atenolol. [id number] score of 0 so currently not anticoagulated. No recent recurrences. Normal ECG. [id number] score is a 1 for female gender [...] (shortness of breath) 10/21/2021 Palpitations 09/16/2021 02/22/2024 Surgical History Surgery Date Site/Laterality Comments ABLATION DONE ON 01/01/2024 AT [facility] INDICATIONS:Atrial Fibrillation HYSTERECTOMY Bilateral APPENDECTOMY [...] Care Team (Late st Contact Info) Description 01/23/2025 1:40 PM EST Office Visit [facility] [address] [facility] [address] [place] [phone] Marylou Pichardo NP [address] [place] [address] Health Maintenance Due Date Last Done Comments Breast Cancer Screening 1966 Hepatitis B Vaccines (1 of 3 - 19+ 3-dose series) 1985 Cervical Cancer Screening: P ap Smear 05/04/1987 HIV Screening 01/23/2022 Hepatitis C Screening 01/23/2022 Social Influencers of Health Screening 01/23/2022 Depression Screening 02/21/2024 COVID-19 Vaccine (3 - 2024-2 6 season) 2024 01/11/2021, 05/30/2020 Influenza Vaccine (#1) 2024 DTaP,Tdap,and Td Vaccines (2 - Td or Tdap) 06/29/2027 06/28/2017 Colorectal Cancer Screening: Colonoscopy 06/07/2034 06/07/2024 Pneumococcal Vaccine: 50+ Years Completed 02/23/2024, 08/04/2021 Zoster Vaccines Completed 04/27/2024, 02/23/2024 HIB Vaccines [...] Procedure Name Priority Date/Time Associated Diagnosis Comments COLONOSCOPY Routine 06/07/2024 1:00 PM EDT Colon cancer screening from Last 3 Months or Most Recently Relevant to Health Maintenance Results * COLONOSCOPY Anesthesia - MAC; [facility] (06/07/2024 1:00 PM EDT) Anatomical Region [...] office PRN. Narrative 06/07/2024 1:00 PM EDT [facility] GI Patient Name: Grace Everett Procedure [...] malignant neoplasm of colon CPT copyright 2020 [employer]. All rights reserved. The codes documented in this report are preliminary and upon supervisor correspondence section review may be revised to meet current compliance requirements. Guido Ivey MD 06/07/2024 1:00:13 PM This report has been signed electronically.Guido Ivey MD Number of Addenda: 0 Note Initiated On: 06/07/2024 12:25 PM Scope In: Scope Out: Endoscopy Department at [facility] - [address] [place] [id number] Procedure Note Guido Ivey MD - 06/07/2024 [facility] GI Patient Name: Grace Everett Procedure [...] for malignantneoplasm of colon CPT copyright 2020 [employer]. All rights reserved. The codes documented in this report are preliminary and upon supervisor correspondence section reviewmay be revised to meet current compliance requirements. Guido Ivey MD 06/07/2024 1:00:13 PM This report has been signed electronically.Guido Ivey MD Number of Addenda: 0 Note Initiated On: 06/07/2024 12:25 PM Scope In: Scope Out: Endoscopy Department at [facility] - [address] [place] [phone] IMPRESSION: - Diverticulosis in the sigmoid colon. - Non-bleeding internal hemorrhoids. - The examination was otherwise normal on directand retroflexion views. - No specimens collected. Recommendation: - Discharge patient to home. - High fiber diet. - Continue present medications. - Repeat colonoscopy in 5-10 years forsurveillance. - Return to GI office PRN. Guido Ivey MD GI~PROCEDURE ORDERABLES Final Result from Last 3 Months or Most Recently Relevant to Health Maintenance Insurance [facility] Care Teams Billboard Installer Relationship Specialty Start Date End Date Hailey Guerrero MD [address] [facility] [address] [place] [address] Physician Associ D/B/A: [facility] [place] PCP - General Internal Medicine 10/13/20
--- OUTSIDE RECORDS SUMMARY | 2024-11-15 15:37 | XMS_ITS | Patient Health Record ---
[facility] Address [address] [place] [address] Care Team Providers Care Veterinary Practitioner Name Role Phone Antonio Ponce Primary Care Provider Unavailab Bob Jimenez Unavailable [phone] Ashley Nguyen Unavailable [phone] Allergies Allergen (clinical drug ingredient) Drug/Non Drug [...] Referring Provider Last Name Kris Referred Organization [facility] Referred Provider Ashley Nguyen Referred Address [address],[place], [place],[address], Referred Provider Specialty Podiatry Referral Priority Routine [...] Referring Provider Last Name Kris Referred Organization [facility] Referred Provider Bob Hall Referred Address [address] [place], [place],[address],[place] Referred Provider Specialty Podiatry Referral Priority Routine [...] Status Risk Notes Problem Acquired hallux valgus (85695213) Hallux valgus (acquired), right foot (M20.11) Active confirmed Vital Signs Blood pressure diastolic 80 mm Hg 2024 Height 5 ft 8 in in 2024 Blood pressure systolic 120 mm Hg 2024 Weight 218 lbs 2024 BMI 33.14 kg/m2 2024 Procedures Procedure Date Ordered Date Performed Result Body Sit e [id number] Plate 2024 N/A Encounters Encounter Location Date Provider Diagnosis [facility] [address] [place] [address] 2024 Bob Hall Ingrown nail L60.0 ; [...] Treatment Pending Test Test Name Order Date [id number] Plate 2024 Insurance Providers Payer Name Payer Address Payer Phone Subscriber Number Group Number Insured Name Patient Relationship to Insured Coverage Start Date Coverage End Date [facility] [address] [place] [address] [phone] [id number] Grace Everett Self - patient is the insured Medical (General) History Medical History History ICD Code Chicken pox sinusitis A fib - previous procedure Surgical History Surgery Date(Month/Year) hysterectomy 2010 tonsilectomy 1973 lazy eye age 6 apendectomy 1994 gall bladder 1998
== END 2024-11-15 15:24 | disposition home or self-care (01) ==
LOC: HO.HMCH 14:50
PROVIDERS: PCP Physician Assistant; Visit Provider Internal Medicine
DX: M72.2 Plantar fascial fibromatosis (principal)

== ENCOUNTER 2024-11-21 12:12 | Outpatient (REF) | payer OTHER, SELFPAY ==
--- NOTE | ~2024-11-21 | XR_ITS ---
EXAMINATION: XR CALCANEUS, RIGHT CLINICAL INFORMATION: M72.2 - Plantar fascial fibromatosis COMPARISON: None available. TECHNIQUE: Lateral and axial views of the right calcaneus were obtained. FINDINGS: A calcaneal enthesophyte is noted involving the plantar fascial attachment. There is minimal calcification in the distal Achilles tendon There is an os trigonum. No other abnormalities are evident. XR/XR calcaneus RT min 2V IMPRESSION: Small to mid-sized calcaneal spur. Moderate calcification in the distal Achilles tendon. Os trigonum. Electronically signed by: Shlomo Fernandes MD 11/21/2024 02:53 PM EDT
--- NOTE | ~2024-11-21 | XR_ITS ---
EXAMINATION: XR FOOT, RIGHT CLINICAL INFORMATION: M72.2 - Plantar fascial fibromatosis COMPARISON: February 14, 2019 TECHNIQUE: AP, lateral, and oblique views of the right foot. FINDINGS: There is no evidence for ligament. There is a plantar calcaneal spur. No other abnormalities evident. There is no fracture, joint spaces are preserved. Incidentally noted is a bipartite medial sesamoid of the great toe. XR/XR foot RT min 3V IMPRESSION: Small to mid sized plantar calcaneal spur. Electronically signed by: Shlomo Fernandes MD 11/21/2024 02:55 PM EDT
== END 2024-11-21 12:13 | disposition home or self-care (01) ==
LOC: HO.HMGCX 12:12
PROVIDERS: PCP Physician Assistant; Visit Provider Student in an Organized Health Care Education/Training Program
DX: M72.2 Plantar fascial fibromatosis (principal)
CPT/HCPCS: 20550; 73630; 73650; J0665; J1100; J3301

== ENCOUNTER 2024-11-21 12:12 | Outpatient (AMB) | payer OTHER, SELFPAY ==
--- OUTSIDE RECORDS SUMMARY | 2024-07-12 05:30 | XMS_ITS ---
Author Organization [facility] Address [address] [place] [address] Care Team Providers Care Tail Puller Name Role Phone Antonio Ponce Primary Care Provider Unavailab Bob Jimenez Unavailable [phone] Ashley Nguyen Unavailable [phone] REASON FOR VISIT too soon Encounters Encounter Location Date Provider Diagnosis [facility] [address] [place] [address] 07/12/2024 Ashley Nguyen Plan Of Treatment No Information Progress Notes * Grace EVERETTDOB: 7 (59 yo F)Acc No.[id number]:07/12/2024 Progress Notes Patient: Grace BONILLA Provider: Berta Nguyen DPM :1965 A ge:59 Y S ex:Female Date:07/12/2024 Address:[address] [place] [address] [place] Pcp:Antonio Ponce Subjective: * Chief Complaints: * 1 . Too soon. * Medical History: Objective: * Vitals: Assessment: Plan: * Treatment: * Images: * The named appointment provid er may or may not be the originator of this progress note, and it is not deemed complete until electronically signed by the appointment provider. Sign off status: Pending * Provider: Berta Nguyen DPM Date: 0 07/12/2024 Generated for Monty reid/Jennifer/Denaitting on: 1 01:51 PM EDT
[2024-11-21 12:39] VITALS: BMI 30.9
--- NOTE | 2024-11-21 12:39 | MHC.OFFVIS ---
Vital Signs 11/21/24 12:39 Height 5 ft 8 in Weight 203 lb 6 oz BMI 30.9 Intake Visit Reasons: Plantar fascial fibromatosis Intake Note: Grace is a 59 year old female who presents today as a new patient for an evaluation of her bilateral plantar Fasciitis. She states pain is worse in her right foot, and she gets occasional numbness in the ball of her right foot and great toe. Patient reports the pain has been going on since August. She mentions she has purchased supportive shoe wear, orthotics, stretching exercises and ice and this has provided slight relief. Allergies Sulfa (Sulfonamide Antibiotics) (SULFA (SULFONAMIDE ANTIBIOTICS)) Allergy (Severe, Verified 11/15/24 15:02) HIVES,DIFFICULTY BREATHING, rash sulfamethoxazole (From Bactrim) Allergy (Unknown, Verified 11/15/24 15:02) unknown trimethoprim (From Bactrim) Allergy (Unknown, Verified 11/15/24 15:02) unknown bupropion (From Wellbutrin) Adverse Reaction (Intermediate, Verified 11/15/24 15:02) arthralgia HPI HPI Plantar fascial fibromatosis: Details: The patient is a 59-year-old female no pertinent past medical history presents with right foot pain. The patient reports experiencing right foot pain and soreness which began after starting a new job that requires standing on cement floors. She has tried various dbpe-jaw-uaulzjm orthotics with limited relief, recently obtained custom orthotics which she thinks is relieving some of her pain. She experiences sensations of numbness in the toes and tightness in the calf muscles. Worst when walking. The pain is described as a low simmer, worsening when standing and improving with movement. She has been using a gel sleeve for icing and performs stretching exercises regularly. The patient also reports right hip pain that started shortly after the foot pain, with no associated back pain. She has not had any prior x-rays of the feet. Social History: - Employment involves standing on cement floors, contributing to foot pain. - Uses a gel sleeve for icing and performs regular stretching exercises. [facility] Medical History Hypovitaminosis D Immunization due Immunization history incomplete Palpitations Obesity Allergies Surgical History History of cardiac ablation for atrial fibrillation History of eye surgery History of laparoscopic cholecystectomy History of appendectomy History of tonsillectomy History of hysterectomy Family History Father COPD (chronic obstructive pulmonary disease) CVD (cardiovascular disease) Pulmonary fibrosis Mother Stroke Rectal cancer Hypertension Afib Son No problems noted. 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 Neuro: Protective sensation grossly intact to bilateral lower extremities. MSK: Mild tenderness on palpation of the plantar medial calcaneal tubercle heel, Moderate tenderness along the central and medial plantar fascial bands at the level of the tarsometatarsal joints. No Tenderness on palpation along the distal insertion of the Achilles tendon, 5 Degrees of ankle dorsiflexion on knee extension, 5-7 degrees of ankle dorsiflexion on knee flexion. Office Procedures AMB Flexor Tendon/Plantar POD Tendon Injection Details of AMB Procedure: Procedure: Steroid injection Location: Right central plantar fascia band Medication: 1.5cc 0.5% bupivicaine, 1cc dexamethasone, 0.5cc kenalog? Description: The right heel was prepped using alcohol. A steroid injection was administered using sterile technique. The site was dressed using a band-aid. Post-procedure Instructions: The patient was instructed to apply ice to the injection site. The patient was advised to call the office if there are signs or symptoms of worsening pain, infection, or steroid flare. Tendon Injection POD1: - Plantar Fascia Injection All charges added?: Procedure code (CPT) selection complete Office Meds triamcinolone acetonide 40 mg/mL suspension for injection Performing Provider: Antonio Mai DPM Performing Location: [facility] Administered by: Antonio Mai DPM on 11/21/24 12:56 Dose Route Admin Location Dispensed Lot Number Expiration Date [facility] Cut Out Machine Operator 20 mg Tendon Sheath Inj. 1 mL [id number] [employer] Total Dispensed Waste 1 mL 50 % dexamethasone sodium phosphate 4 mg/mL injection solution Performing Provider: Antonio Mai DPM Performing Location: [facility] Administered by: Antonio Mai DPM on 11/21/24 12:56 Dose Route Admin Location Dispensed Lot Number Expiration Date [facility] Cut Out Machine Operator 4 mg Tendon Sheath Inj. 1 mL [id number] [employer] Total Dispensed Waste 1 mL 0 % bupivacaine (PF) 0.5 % (5 mg/mL) injection solution Performing Provider: Antonio Mai DPM Performing Location: [facility] Administered by: Antonio Mai DPM on 11/21/24 12:56 Dose Route Admin Location Dispensed Lot Number Expiration Date [facility] Cut Out Machine Operator 2 mL intra-articular 10 mL [id number] [employer] Total Dispensed Waste 10 mL 80 % Assessment & Plan Assessment & Plan (1) Plantar fasciitis: Code(s): M72.2 - Plantar fascial fibromatosis Category: Medical Plan: Discussed etiology of the patient's foot pain. Differential diagnosis includes plantar fasciitis, neuritis, tendinitis. Patient educated on the nature and etiology of plantar fasciitis, which involves inflammation and microtearing of the plantar fascia due to repetitive stress and overuse. Rx X-ray 3V right foot, calcaneus The patient was counseled on conservative management of plantar fasciitis, including daily stretching exercises targeting the plantar fascia and Achilles tendon, use of supportive and properly fitting footwear, and consideration of custom or prefabricated orthotics to improve foot biomechanics. Instructed the patient on home stretching and range of motion exercises including calf-stretches, frozen water bottle therapy, band-therapy. Patient deferred referral to physical therapy at this time due to financial restrictions. Continue use of custom orthotics. Cortisone injection administered to right foot plantar fascia (medial and central band) Follow up in 3 weeks Orders: Orders XR foot RT min 3V Today M72.2 - Plantar fascial fibromatosis AMB Flexor Tendon / Plantar Fascia Injection Today M72.2 - Plantar fascial fibromatosis XR calcaneus RT min 2V Today M72.2 - Plantar fascial fibromatosis Coding Level of Care Code New Pt Level 3 (81846) Diagnoses Plantar fasciitis M72.2 CPT Codes Tendon Injection - Tendon Injection POD1: - Plantar Fascia Injection ([id number]) Time Spent (min) 45
--- OUTSIDE RECORDS SUMMARY | 2024-11-21 13:51 | XMS_ITS | Patient Health Record ---
Author Organization [facility] Address [address] [place] [address] Care Team Providers Care Continuous Crusher Operator Name Role Phone Antonio Ponce Primary Care Provider Unavailab Bob Jimenez Unavailable [phone] Ashley Nguyen Unavailable [phone] Allergies Allergen (clinical drug ingredient) Drug/Non Drug [...] Referring Provider Last Name Kris Referred Organization [facility] Referred Provider Ashley Nguyen Referred Address [address] [facility],[place], [place],[address], Referred Provider Specialty Podiatry Referral Priority Routine [...] Referring Provider Last Name Kris Referred Organization [facility] Referred Provider Bbo Hall Referred Address [address] [place], [place],[address],[place] Referred Provider Specialty Podiatry Referral Priority Routine [...] Status Risk Notes Problem Acquired hallux valgus (00069743) Hallux valgus (acquired), right foot (M20.11) Active confirmed Vital Signs Blood pressure diastolic 80 mm Hg 2024 Height 5 ft 8 in in 2024 Blood pressure systolic 120 mm Hg 2024 Weight 218 lbs 2024 BMI 33.14 kg/m2 2024 Procedures Procedure Date Ordered Date Performed Result Body Sit e 77003-Rydadplz Plate 2024 N/A Encounters Encounter Location Date Provider Diagnosis [facility] [place] [address] [place] [address] 2024 Bob Hall Ingrown nail L60.0 ; [...] Treatment Pending Test Test Name Order Date 83257-Dpmogwwe Plate 2024 Insurance Providers Payer Name Payer Address Payer Phone Subscriber Number Group Number Insured Name Patient Relationship to Insured Coverage Start Date Coverage End Date [facility] [address] [place] [address] [phone] [id number] Grace Everett Self - patient is the insured Medical (General) History Medical History History ICD Code Chicken pox sinusitis A fib - previous procedure Surgical History Surgery Date(Month/Year) hysterectomy 2010 tonsilectomy 1973 lazy eye age 6 apendectomy 1994 gall bladder 1998
--- OUTSIDE RECORDS SUMMARY | 2024-11-21 13:51 | XMS_ITS | Clinical Summary ---
Author Organization [facility] Address [address] [place] [phone] Phone Care Team Providers Care Animal Taxonomist Name Role Phone Pcp, Unknown Primary Care [...] NET PARTIAL SAFETY NET PARTIAL Care Teams Animal Taxonomist Relationship Specialty Start Date End Date Pcp, Unknown PCP - General 07/20/23 Additional Source Comments The information contained in this document represents components of the legal health record. It is not the complete legal health record.[facility]
--- OUTSIDE RECORDS SUMMARY | 2024-11-21 13:51 | XMS_ITS | Clinical Summary ---
Author Organization [address] [place] [address] Address [address] [place] [address] Phone Care Team Providers Care Pediatric Nurse Practitioner Name Role Phone Hailey Guerrero MD Primary Care Provider [phone] Allergies Active Allergy Reactions Criticality Noted Date [...] 30.0-34.9) 10/21/2021 PAF (paroxysmal atrial fibri llation) ([facility] V24, [facility] V28) 09/16/2021 Overview (12/28/2023): Paroxysmal atrial fibrillation. Currently treated with flecainide and atenolol. [id number] score of 0 so currently not anticoagulated. No recent recurrences. Normal ECG. [id number] score is a 1 for female gender [...] Site/Laterality Comments ABLATION DONE ON 01/01/2024 AT [facility] INDICATIONS:Atrial Fibrillation HYSTERECTOMY Bilateral APPENDECTOMY [...] Safety Answer Date Record ed Physical Abuse Unrecognized value 06/07/2024 Verbal Abuse Unrecognized value 06/07/2024 Comments Unknown Sex and Gender Information [...] Description 01/23/2025 1:40 PM EST Office Visit [facility] [address] [facility] [address] [place] [address] Marylou Pichardo NP [address] [place] [address] Health Maintenance Due Date Last [...] 06/28/2017 Colorectal Cancer Screening: Colonoscopy 06/07/2034 06/07/2024 RSV Immunization Adult Patients (1 - 1-dose 75+ series) 2041 Pneumococcal Vaccine: 50+ Years Completed 02/23/2024, 08/04/2021 [...] Results * COLONOSCOPY Anesthesia - MAC; [facility] ENDOSCOPY (06/07/2024 1:00 PM EDT) Anatomical [...] office PRN. Narrative 06/07/2024 1:00 PM EDT [facility] Patient Name: Grace Everett Procedure Date: 06/07/2024 12:25 PM Date of : 1965 Age: 59 Room: ROOM 14 Gender: Female Note Status: Finalized Attending MD: Guido Ivey MD, Procedure Date No Time: 06/07/2024 Procedure: Colonoscopy Indications: Screening for colorectal malignant neoplasm Providers: Guido Ivey MD Referring MD: Gudio Ivey MD Medicines: Monitored Anesthesia Care Complications: [...] malignant neoplasm of colon CPT copyright 2020 [employer]. All rights reserved. The codes documented in this report are preliminary and upon flight coordinator review may be revised to meet current compliance requirements. Guido Ivey MD 06/07/2024 1:00:13 PM This report has been signed electronically.Guido Ivey MD Number of Addenda: 0 Note Initiated On: 06/07/2024 12:25 PM Scope In: Scope Out: Endoscopy Department at [facility] - [address] [place] [phone] Procedure Note Guido Ivey MD - 06/07/2024 [facility] Patient Name: Grace Everett Procedure [...] for malignantneoplasm of colon CPT copyright 2020 [employer]. All rights reserved. The codes documented in this report are preliminary and upon flight coordinator reviewmay be revised to meet current compliance requirements. Guido Ivey MD 06/07/2024 1:00:13 PM This report has been signed electronically.Guido Ivey MD Number of Addenda: 0 Note Initiated On: 06/07/2024 12:25 PM Scope In: Scope Out: Endoscopy Department at [facility] - [address] [place] [phone] IMPRESSION: - Diverticulosis in the sigmoid colon. [...] Most Recently Relevant to Health Maintenance Insurance [facility] Care Teams Pediatric Nurse Practitioner Relationship Specialty Start Date End Date Hailey Guerrero MD [address] [facility] , [address] [facility] D[facility]A: [facility] [place], [place] PCP - General Internal Medicine 10/13/20
== END 2024-11-21 13:16 | disposition home or self-care (01) ==
LOC: HO.HPODS 12:14
PROVIDERS: PCP Physician Assistant; Visit Provider Student in an Organized Health Care Education/Training Program
DX: M72.2 Plantar fascial fibromatosis (principal)
CPT/HCPCS: 20550; 99203

== ENCOUNTER → 2024-11-21 14:08 | Outpatient (BNV) | payer OTHER, SELFPAY | PROVIDERS: PCP Physician Assistant; Visit Provider Radiology Diagnostic Radiology | DX: M65.261 Calcific tendinitis, right lower leg (principal); M25.872 Other specified joint disorders, left ankle and foot; M72.2 Plantar fascial fibromatosis; M77.31 Calcaneal spur, right foot | CPT/HCPCS: 73630; 73650 ==

== ENCOUNTER 2024-12-16 13:49 | Outpatient (AMB) | payer OTHER, SELFPAY ==
--- OUTSIDE RECORDS SUMMARY | 2024-07-12 05:30 | XMS_ITS ---
Author Organization [facility] Address [address] [place] [address] Care Team Providers Care Coil Placer Name Role Phone Antonio Ponce Primary Care Provider Unavailab Bob Jimenez Unavailable [phone] Ashley Nguyen Unavailable [phone] REASON FOR VISIT too soon Encounters Encounter Location Date Provider Diagnosis [facility] [address] [place] [address] 07/12/2024 Ashley Nguyen Plan Of Treatment No Information Progress Notes * Grace EVERETTDOB: 7 (59 yo F)Acc No.[id number]:07/12/2024 Progress Notes Patient: Grace BONILLA Provider: Berta Nguyen DPM :1965 A ge:59 Y S ex:Female Date:07/12/2024 Address:[address] [place] [address] [place] Pcp:Antonio Ponce Subjective: * Chief Complaints: * [...] 07/12/2024 Generated for Monty reid/Jennifer/Denaitting on: 1 05:27 PM EDT
--- NOTE | 2024-12-16 13:58 | MHC.OFFVIS ---
Vital Signs 12/16/24 14:04 Height 5 ft 8 in Weight 203 lb BMI 30.9 Intake Visit Reasons: fu plantar fascial fibromatosis x-ray Intake Note: Grace is a 59 year old female who presents today for a follow up on her bilateral plantar fasciitis. During her last visit a cortisone injection was administered to her right foot and she was advised to perform stretching exercises and the use of proper foot wear. Patient reports she has seen improvement with her pain but finds she still experiences occasional pain. Allergies Sulfa (Sulfonamide Antibiotics) (SULFA (SULFONAMIDE ANTIBIOTICS)) Allergy (Severe, Verified 12/16/24 14:04) HIVES,DIFFICULTY BREATHING, rash sulfamethoxazole (From Bactrim) Allergy (Unknown, Verified 12/16/24 14:04) unknown trimethoprim (From Bactrim) Allergy (Unknown, Verified 12/16/24 14:04) unknown bupropion (From Wellbutrin) Adverse Reaction (Intermediate, Verified 12/16/24 14:04) arthralgia HPI HPI fu plantar fascial fibromatosis x-ray: Details: The patient is a 59-year-old female no pertinent past medical history presents for 3 week follow up for right foot pain. She states that the injection received last visit has decreased her pain symptoms and how frequently she had heel pain. She also notes less numbness to the front of her foot, however still present. She is performing her range of motion and stretching exercises daily. She is also using [employer] (ghost) sneakers. 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 History: The patient reports experiencing right foot pain and soreness which began after starting a new job that requires standing on cement floors. She has tried various gfgn-fbv-utpvrgz orthotics with limited relief, recently obtained custom orthotics which she thinks is relieving some of her pain. She experiences sensations of numbness in the toes and tightness in the calf muscles. Worst when walking. The pain is described as a low simmer, worsening when standing and improving with movement. She has been using a gel sleeve for icing and performs stretching exercises regularly. The patient also reports right hip pain that started shortly after the foot pain, with no associated back pain. She has not had any prior x-rays of the feet. Social History: - Employment involves standing on cement floors, contributing to foot pain. - Uses a gel sleeve for icing and performs regular stretching exercises. [facility] Medical History Hypovitaminosis D Immunization due Immunization history incomplete Palpitations Obesity Allergies Surgical History History of cardiac ablation for atrial fibrillation History of eye surgery History of laparoscopic cholecystectomy History of appendectomy History of tonsillectomy History of hysterectomy Family History Father COPD (chronic obstructive pulmonary disease) CVD (cardiovascular disease) Pulmonary fibrosis Mother Stroke Rectal cancer Hypertension Afib Son No problems noted. 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 Neuro: Protective sensation grossly intact to bilateral lower extremities. MSK: No tenderness on palpation of the plantar medial calcaneal tubercle heel, Mild tenderness along the central and medial plantar fascial bands at the level of the tarsometatarsal joints. No Tenderness on palpation along the distal insertion of the Achilles tendon, 5 Degrees of ankle dorsiflexion on knee extension, 5-7 degrees of ankle dorsiflexion on knee flexion. Results Reviewed Results Reviewed: Podiatry X-ray Read: 11/21/2024 X-ray right foot 3 views (AP, MO, Lateral) reviewed which shows mild plantar calcaneal spur, os trigoneum posterior talus. No midfoot tarsal-metatarsal arthritic changes. No fractures, dislocations, or gross abnormalities. Bone density is within normal limits. Bipartite tibial sesamoid, unchanged from 2019 x-rays. No evidence of swelling, foreign body, or calcifications. I personally reviewed the imaging and my findings are listed above. Podiatry X-ray Read: 11/21/2024 X-ray right calcaneus 2 views (Axial, Lateral) reviewed which shows neutral heel alignment. Subtalar joint open no signs of coalition. I personally reviewed the imaging and my findings are listed above. Assessment & Plan Assessment & Plan (1) Plantar fasciitis: Comment: s/p injection 11/21/24 Code(s): M72.2 - Plantar fascial fibromatosis Category: Medical Plan: Discussed etiology of the patient's foot pain. Differential diagnosis includes plantar fasciitis, neuritis, tendinitis. Patient educated on the nature and etiology of plantar fasciitis, which involves inflammation and microtearing of the plantar fascia due to repetitive stress and overuse. Reviewed right foot and calcaneal x-rays with the patient. Continue home stretching and range of motion exercises including calf-stretches, frozen water bottle therapy, band-therapy. Continue use of custom orthotics. Rx Medrol dose pack Follow up as needed Medications: New methylprednisolone (Medrol (Doc)) Take 6 tablets on day 1, 5 tablets on day 2, 4 tablets on day 3, 3 tablets on day 4, 2 tablets on day 5, and 1 tablet on day 6. 4 mg PO PER PKG DIR 21 ea 0RF Coding Level of Care Code Est Pt Level 3 (21653) Diagnoses Plantar fasciitis M72.2 Time Spent (min) 30
[2024-12-16 14:04] VITALS: BMI 30.9
--- OUTSIDE RECORDS SUMMARY | 2024-12-16 17:27 | XMS_ITS | Clinical Summary ---
Author Organization [address] [place] [address] Address [address] [place] [address] Phone Care Team Providers Care Java Web Application Developer Name Role Phone Hailey Guerrero MD Primary Care Provider [phone] Allergies Active Allergy Reactions Criticality Noted Date [...] 30.0-34.9) 10/21/2021 PAF (paroxysmal atrial fibri llation) ([facility] V24, [facility] V28) 09/16/2021 Overview (12/28/2023): Paroxysmal atrial fibrillation. Currently treated with flecainide and atenolol. [id number] score of 0 so currently not anticoagulated. No recent recurrences. Normal ECG. [id number]-KWDt score is a 1 for female gender [...] the conduction system, thrombus related stroke or DE. She does want to proceed with the [...] Site/Laterality Comments ABLATION DONE ON 01/01/2024 AT [facility] W M INDICATIONS:Atrial Fibrillation HYSTERECTOMY Bilateral APPENDECTOMY [...] Description 01/23/2025 1:40 PM EST Office Visit [facility] [address] [facility] [address] [place] [address] Marylou Pichardo NP [address] [place] [address] [place] [address] Health Maintenance Due Date Last Done Comments [...] Maintenance Results * COLONOSCOPY Anesthesia - MAC; [place] [...] office PRN. Narrative 06/07/2024 1:00 PM EDT [facility] Patient Name: Grace Everett Procedure [...] malignant neoplasm of colon CPT copyright 2020 [employer] [place] [employer]. All rights reserved. The codes documented in this report are preliminary and upon inventory auditor review may be revised to meet current compliance requirements. Guido Ivey MD 06/07/2024 1:00:13 PM This report has been signed electronically.Guido Ivey MD Number of Addenda: 0 Note Initiated On: 06/07/2024 12:25 PM Scope In: Scope Out: Endoscopy Department at [facility] - [address] [place] [phone] Procedure Note Guido Ivey MD - 06/07/2024 [facility] Patient Name: Grace Everett Procedure Date: 06/07/2024 12:25 PM Date of : 1965 Age: 59 Room: ROOM 14 Gender: Female Note Status: Finalized Attending MD: Guiod Ivey MD, Procedure Date No Time: 06/07/2024 [...] for malignantneoplasm of colon CPT copyright 2020 [employer] [place] [employer]. All rights reserved. The codes documented in this report are preliminary and upon inventory auditor reviewmay be revised to meet current compliance requirements. Guido Ivey MD 06/07/2024 1:00:13 PM This report has been signed electronically.Guido Ivey MD Number of Addenda: 0 Note Initiated On: 06/07/2024 12:25 PM Scope In: Scope Out: Endoscopy Department at [facility] - [address] [place] [phone] IMPRESSION: - Diverticulosis in the sigmoid colon. [...] Most Recently Relevant to Health Maintenance Insurance [employer] Care Teams Java Web Application Developer Relationship Specialty Start Date End Date Hailey Guerrero MD [address] [facility] , [address] Physician Associ D[facility]A: [facility] [place], [place] PCP - General Internal Medicine 10/13/20
--- OUTSIDE RECORDS SUMMARY | 2024-12-16 17:27 | XMS_ITS | Clinical Summary ---
Author Organization [facility] Address [address] [place], [place] [id number] Phone Care Team Providers Care Jet Worker Name Role Phone Pcp, Unknown Primary Care [...] (2 of 2 - PCV) 08/04/2022 08/04/2021 INFLUENZA VACCINE (#1) 2024 COVID-19 VACCINE (3 - 2024-2 6 season) 2024 01/11/2021, 05/30/2020 Adult Td,Tdap Booster 06/29/2027 06/28/2017 RSV VACCINE (1 - 1-dose 75+ series) 2041 COLORECTAL CANCER SCREENING Completed HEPATITIS A VACCINES [...] SAFETY NET PARTIAL HEALTH SAFETY NET PARTIAL [employer] SAFETY NET PARTIAL [employer] SAF[employer] NET PARTIAL Care Teams Jet Worker Relationship Specialty Start Date End Date Pcp, Unknown PCP - General 07/20/23 Additional Source Comments The information contained in this document represents components of the legal health record. It is not the complete legal health record.[facility]
--- OUTSIDE RECORDS SUMMARY | 2024-12-16 17:27 | XMS_ITS | Patient Health Record ---
Author Organization [facility] Address [address] [place] [address] Care Team Providers Care Regional Forester Name Role Phone Antonio Ponce Primary Care Provider Unavailab Bob Jimenez Unavailable [phone] Ashley Nguyen Unavailable [phone] Allergies Allergen (clinical drug ingredient) Drug/Non Drug [...] Referring Provider Last Name Kris Referred Organization [facility] Referred Provider Ashley Nguyen Referred Address [address] [facility],[place],[address], Referred Provider Specialty Podiatry Referral Priority Routine [...] Referring Provider Last Name Kris Referred Organization [facility] Referred Provider Bob Hall Referred Address [address] [place], [place],[address],[place] Referred Provider Specialty Podiatry Referral Priority Routine [...] Status Risk Notes Problem Acquired hallux valgus (47573623) Hallux valgus (acquired), right foot (M20.11) Active confirmed Vital Signs Blood pressure diastolic 80 mm Hg 2024 Height 5 ft 8 in in 2024 Blood pressure systolic 120 mm Hg 2024 Weight 218 lbs 2024 BMI 33.14 kg/m2 2024 Procedures Procedure Date Ordered Date Performed Result Body Sit e 83022-Pcqvxpoo Plate 2024 N/A Encounters Encounter Location Date Provider Diagnosis [facility] [address] [place] [address] 2024 Bob Hall Ingrown nail L60.0 ; [...] Treatment Pending Test Test Name Order Date 42023-Thtrxbad Plate 2024 Insurance Providers Payer Name Payer Address Payer Phone Subscriber Number Group Number Insured Name Patient Relationship to Insured Coverage Start Date Coverage End Date [facility] [address] [place] [address] [phone] [id number] Grace Everett Self - patient is the insured Medical (General) History Medical History History ICD Code Chicken pox sinusitis A fib - previous procedure Surgical History Surgery Date(Month/Year) hysterectomy 2010 tonsilectomy 1973 lazy eye age 6 apendectomy 1994 gall bladder 1998
== END 2024-12-16 14:22 | disposition home or self-care (01) ==
LOC: HO.HPODS 13:50
PROVIDERS: PCP Physician Assistant; Visit Provider Student in an Organized Health Care Education/Training Program
DX: M72.2 Plantar fascial fibromatosis (principal)
CPT/HCPCS: 99213